=== PATIENT | female | born 1965 | race Caucasian/White ===

== ENCOUNTER → 2017-05-11 | Outpatient (CLI) | payer OTHER ==
--- NOTE | 2017-05-14 16:54 | Diagnostic Imaging Report ---
EXAM: Screening mammogram. COMPARISON: 10/17/2010. FINDINGS: Digital screening mammography was obtained with CAD and 3-dimensional tomosynthesis. FINDINGS: Scattered fibroglandular densities are present. There is no mass or suspicious calcification. IMPRESSION: Stable screening mammogram. No malignancy. BI-RADS category 1. ACR BI-RADS Category 1: Negative. Result letter will be mailed to the patient. Note: At least 10% of breast cancer is not imaged by mammography. Dictated by: Dictated on workstation # [id number]
== END ==
LOC: RAD 09:47
PROVIDERS: ATTEND Nurse Practitioner Family
DX: Z12.31 Encounter for screening mammogram for malignant neoplasm of breast (principal)
CPT/HCPCS: 77067

== ENCOUNTER 2018-08-20 05:33 | Outpatient (CLI) | payer MEDICAID ==
[~2018-08-20] VITALS: Ht 165.1 cm; Wt 62.1 kg
== END 2018-08-20 11:33 | disposition home or self-care (01) ==
LOC: PREOP 05:33
PROVIDERS: ATTEND Specialist
DX: Z01.818 Encounter for other preprocedural examination (principal)

== ENCOUNTER 2018-08-21 06:24 | Day surgery (SDC) | payer MEDICAID ==
[~2018-08-21] VITALS: Ht 165.1 cm; Wt 62.1 kg
--- OUTSIDE RECORDS SUMMARY | 2018-08-21 06:28 | XMS REPORT ---
Author Author BOB ALTMAN Organization [facility] Address [address] [place] [address] Care Team Providers Care Glass Belt Sander Name Role Phone BOB ALTMAN Unavailable PROBLEMS Type Condition ICD9-CM Code TPR73-GN Code Onset Dates Condition Status SNOMED Code Problem AVEL (obstructive sleep apnea) G47.33 Active 46758410 Problem COPD mixed type J44.9 Active 01502574 Problem Simple chronic bronchitis J41.0 Active 71905396 Problem COPD exacerbation J44.1 Active 219934080 Problem Hypoxia R09.02 Active 903502191 Problem Grief reaction F43.20 Active 68526099 ALLERGIES No Information ENCOUNTERS Encounter Location Date Diagnosis [facility] [address] [id number][place] [id number] Jul, [facility] [id number] [place] [address] [id number] May, [facility] [id number], [place] [id number] 24 May, 2018 [facility] [id number], [place] [id number] 14 May, 2018 COPD mixed type J44.9 [facility] [id number], [place] [id number] May, [facility] [address] [facility] [id number][place] [id number] Apr, [facility] [address] [id number], [place] [id number] Mar, Dental caries K02.9 [facility] [place] [address] [facility] [id number], [place] [address] Mar, [facility] [address] [id number], [place] [phone] Mar, Dental examination Z01.20 [facility] [place] [address]00565100[place], [place] [address] Feb, [facility] [place] [id number] [place] [address] [id number] January, COPD mixed type J44.9 [facility] [place] [id number] [place] [address] [id number] January, [facility] [place] [id number] [place] [address] [id number] January, [facility] [place] [address] [place] [address] January, [facility] [place] [id number] [place] [address] [id number] Dec, [facility] [place] [id number] [place] [address] [id number] Dec, [facility] [place] [id number] [place] [address] [id number] Dec, Abdominal mass, LLQ (left lower quadrant) R19.04 [facility] [place] [id number] [place] [address] [id number] Nov, Left lower quadrant pain R10.32 ; Abdominal mass, LLQ (left lower quadrant ) R19.04 ; Weight loss R63.4 ; COPD mixed type J44.9 and Hypoxia R09.02 [facility] [place] [id number] [place] [address] [id number] Nov, [facility] [place] [id number] [place] [address] [id number] Nov, COPD exacerbation J44.1 and Hypoxia R09.02 [facility] [place] [address] [place] [address] [id number] Nov, Hyponatremia E87.1 and COPD mixed type J44.9 [facility] [place] [id number] [place] [address] [id number] Nov, COPD mixed type J44.9 [facility] [place] [id number] [place] [address] [id number] Nov, AVEL (obstructive sleep apnea) G47.33 and Hypoxia R09.02 [facility] [place] [id number], [place] [phone] Nov, [facility] [place] [id number], [place] [phone] Oct, [facility] [place] [id number], [place] [phone] Oct, COPD mixed type J44.9 ; Hypoxia R09.02 and AVEL (obstructive sleep apnea) G47.33 [facility] [place] [address] [facility] [id number][place] [phone] Oct, [facility] [place] [address] [place] [address] [phone] Aug, [facility] [place] [id number] [place] [address] [id number] Aug, [facility] [place] [id number] [place] [address] [phone] Aug, COPD mixed type J44.9 ; Hypoxia R09.02 ; Edema of lower extremity R60.0 ; Hyponatremia E87.1 and Tobacco abuse counseling Z71.6 [facility] [place] [id number] [place] [address] [phone] Aug, COPD exacerbation J44.1 [facility] [place] [id number] [place] [address] [id number] Aug, [facility] [place] [id number] [place] [address] [phone] Aug, [facility] [place] [id number], [place] [phone] Aug, [facility] [place] [address] [id number], [place] [phone] Aug, COPD mixed type J44.9 and Hypoxia R09.02 [facility] [place] [address] [place], [place] [address] [id number] [place] [address] Jul [facility] [place] [id number], [place] [id number] Jul, COPD exacerbation J44.1 and Hypoxia R09.02 [facility] [place] [address] [facility] [id number], [place] [id number] Jul, COPD exacerbation J44.1 and Homeless Z59.0 [facility] [id number] [place] [address] [id number] Jul, COPD exacerbation J44.1 ; Hypoxia R09.02 ; Community acquired pneumonia, unspecified laterality J18.9 ; Tobacco abuse Z72.0 and Tobacco abuse counseling Z71.6 [facility] [id number] [place] [address] [phone] Jun, [facility] [id number] [place] [address] [phone] Jun, Simple chronic bronchitis J41.0 [facility] [id number] [place] [address] [id number] May, [place] [address] [place] [address] [id number] May, [facility] [id number] [place] [address] [phone] May, Simple chronic bronchitis J41.0 [facility] [id number] [place] [address] [id number] Apr, Grief reaction F43.20 and Simple chronic bronchitis J41.0 [facility] [id number] [place] [address] [id number] Apr, [facility] [id number] [place] [address] [id number] Mar, COPD exacerbation J44.1 and Simple chronic bronchitis J41.0 [facility] [id number] [place] [address] [id number] Mar, Well woman exam with routine gynecological exam Z01.419 ; Screening breast examination Z12.31 ; Simple chronic bronchitis J41.0 ; Encounter for vaccination Z23 and Encounter for immunization Z23 [facility] [id number] [place] [address] [id number] Mar, Simple chronic bronchitis J41.0 ; Grief reaction F43.20 and COPD exacerbation J44.1 [facility] [address] [id number], [place] [phone] Feb, COPD exacerbation J44.1 [facility] [address] [facility] [id number], [place] [phone] Feb, [facility] [address] [id number], [place] [phone] Feb, Simple chronic bronchitis J41.0 [facility] [address] [id number], [place] [phone] January, Simple chronic bronchitis J41.0 ; Grief reaction F43.20 and COPD exacerbation J44.1 [facility] 120 [facility] [id number], [place] [phone] January, IMMUNIZATIONS No Known Immunizations SOCIAL HISTORY Never Assessed REASON FOR VISIT med refill PLAN OF CARE VITAL SIGNS MEDICATIONS Medication Instructions Dosage Frequency Start Date End Date Duration Status Singulair 10 mg Orally Once a day 1 tablet in the evening 24h Mar, 0 days Active RESULTS No Results PROCEDURES No Known procedures INSTRUCTIONS MEDICATIONS ADMINISTERED No Known Medications MEDICAL (GENERAL) HISTORY Type Description Date Medical History chronic obstructive pulmonary disease (COPD) Medical History chronic bronchitis Medical History 09/05/17 in home sleep study:Obstructive sleep apnea-moderate and nocturnal hypoxemia. Surgical History Blood vessel removal from head 1982 Surgical History tubal ligation Hospitalization History bronchitis
--- OUTSIDE RECORDS SUMMARY | 2018-08-21 06:28 | XMS REPORT ---
Author Author LUIS ENRIQUE HOOD [facility] Address [address] [place] [address] Care Team Providers Care Clipper Counters Name Role Phone ERWIN LUIS ENRIQUE Unavailable PROBLEMS Type Condition ICD9-CM Code FVQ84-DS Code Onset Dates Condition Status SNOMED Code Problem AVEL (obstructive sleep apnea) G47.33 Active 37057057 Problem COPD mixed type J44.9 Active 99674033 Problem Simple chronic bronchitis J41.0 Active 66608799 Problem COPD exacerbation J44.1 Active 466950243 Problem Hypoxia R09.02 Active 440045677 Problem Grief reaction F43.20 Active 50336772 ALLERGIES No Information ENCOUNTERS Encounter Location Date Diagnosis [facility] [address] [id number][place] [phone] Jul, [facility] [id number] [place] [address] [id number] May, [facility] [id number] [place] [address] [id number] 24 May, 2018 [facility] [id number] [place] [address] [id number] 14 May, 2018 COPD mixed type J44.9 [facility] [id number] [place] [address] [id number] May, [facility] [address] [id number] [phone] Apr, [facility] [address] [id number], [place] [phone] Mar, Dental caries K02.9 [facility] [address] [facility] [id number], [place] [address] Mar, [facility] [address] [id number], [place] [phone] Mar, Dental examination Z01.20 [facility] [address]00565100[place], [place] [address] Feb, [facility] [id number] [place] [address] [id number] January, COPD mixed type J44.9 [facility] [id number] [place] [address] [id number] January, [facility] [id number] [place] [address] [id number] January, [facility] [place] [address] [place] [id number] January, [facility] [id number] [place] [address] [phone] Dec, [facility] [id number] [place] [address] [id number] Dec, [facility] [id number] [place] [address] [phone] Dec, Abdominal mass, LLQ (left lower quadrant) R19.04 [facility] [id number] [place] [address] [phone] Nov, Left lower quadrant pain R10.32 ; Abdominal mass, LLQ (left lower quadrant ) R19.04 ; Weight loss R63.4 ; COPD mixed type J44.9 and Hypoxia R09.02 [facility] [id number] [place] [address] [id number] Nov, [facility] [id number] [place] [address] [id number] Nov, COPD exacerbation J44.1 and Hypoxia R09.02 [facility] [id number] [place] [address] [id number] Nov, Hyponatremia E87.1 and COPD mixed type J44.9 [facility] [id number] [place] [address] [id number] Nov, COPD mixed type J44.9 [facility] [id number] [place] [address] [id number] Nov, AVEL (obstructive sleep apnea) G47.33 and Hypoxia R09.02 [facility] [address] [id number] [place]ACH[place] [phone] Nov, [facility] [address] [id number] [place]ACH[place] [phone] Oct, [facility] [address] [id number] [place]ACH[place] [phone] Oct, COPD mixed type J44.9 ; Hypoxia R09.02 and AVEL (obstructive sleep apnea) G47.[address] [facility] [address] [id number], [place] [id number] Oct, [facility] [address] [id number] BEACH[place] [phone] Aug, [facility] [id number] [place] [address] [id number] Aug, [facility] [id number] [place] [address] [id number] Aug, COPD mixed type J44.9 ; Hypoxia R09.02 ; Edema of lower extremity R60.0 ; Hyponatremia E87.1 and Tobacco abuse counseling Z71.6 [facility] [address] [id number] BEACH[place] [phone] Aug, COPD exacerbation J44.1 [facility] [address] [id number] BEACH, [place] [phone] Aug, [facility] [address] [id number] [place]ACH[place] [id number] Aug, [facility] [address] [id number] [place]ACH[place] [id number] Aug, [facility] [id number] [place]ACH, [place] [id number] Aug, COPD mixed type J44.9 and Hypoxia R09.02 [facility] [address] [place], [place] [address] [id number] [place] [address] Jul [facility] [address] [id number] [place]ACH[place] [id number] Jul, COPD exacerbation J44.1 and Hypoxia R09.[address] [facility] [address] [id number], [place] [id number] Jul, COPD exacerbation J44.1 and Homeless Z59.0 [place] [id number] [place] [address] [id number] Jul, COPD exacerbation J44.1 ; Hypoxia R09.02 ; Community acquired pneumonia, unspecified laterality J18.9 ; Tobacco abuse Z72.0 and Tobacco abuse counseling Z71.6 [facility] [id number] [place] [address] [phone] Jun, [place] [id number] [place] [address] [phone] Jun, Simple chronic bronchitis J41.0 [place] [address] [place] [address] [id number] May, [place] [address] [place] [address] [id number] May, [place] [address] [place] [address] [id number] May, Simple chronic bronchitis J41.0 [place] [address] [place] [address] [id number] Apr, Grief reaction F43.20 and Simple chronic bronchitis J41.0 [address] [place] [address] [id number] Apr, [place] [address] [place] [address] [id number] Mar, COPD exacerbation J44.1 and Simple chronic bronchitis J41.0 [place] [address] [place] [address] [id number] Mar, Well woman exam with routine gynecological exam Z01.419 ; Screening breast examination Z12.31 ; Simple chronic bronchitis J41.0 ; Encounter for vaccination Z23 and Encounter for immunization Z23 [place] [address] [place] [address] [id number] Mar, Simple chronic bronchitis J41.0 ; Grief reaction F43.20 and COPD exacerbation J44.1 [place] [address] [place] [address] [id number] Feb, COPD exacerbation J44.1 [facility] [address] [facility] [id number] [place] [phone] Feb, [facility] 120 [facility] [id number] [place] [phone] Feb, Simple chronic bronchitis J41.0 [facility] [address] [id number] [place]ACH[place] [id number] January, Simple chronic bronchitis J41.0 ; Grief reaction F43.20 and COPD exacerbation J44.[address] [id number] [place]ACH[place] [phone] January, IMMUNIZATIONS No Known Immunizations SOCIAL HISTORY Never Assessed REASON FOR VISIT Medication question PLAN OF CARE VITAL SIGNS MEDICATIONS Unknown Medications RESULTS No Results PROCEDURES No Known procedures [...]
--- OUTSIDE RECORDS SUMMARY | 2018-08-21 06:28 | XMS REPORT ---
Author Author REKHA SOTO [facility] Address [address] [place] [address] Care Team Providers Care English Division Chair Name Role Phone REKHA SOTO Unavailable PROBLEMS Type Condition ICD9-CM Code SUS66-DS Code Onset Dates Condition Status SNOMED Code Problem AVEL (obstructive sleep apnea) G47.33 Active 40950327 Problem COPD mixed type J44.9 Active 06119759 Problem Simple chronic bronchitis J41.0 Active 41442962 Problem COPD exacerbation J44.1 Active 527723379 Problem Hypoxia R09.02 Active 483230190 Problem Grief reaction F43.20 Active 75305283 ALLERGIES No Information ENCOUNTERS Encounter Location Date Diagnosis [facility] [address] [id number] [place] [id number] Jul, [facility] [id number] [place] [address] [phone] May, [facility] [id number] [place] [address] [id number] 24 May, 2018 [facility] [id number] [place] [address] [id number] 14 May, 2018 COPD mixed type J44.9 [facility] [id number] [place] [address] [id number] May, [facility] [address] [address] Apr, [facility] [address] [id number] [place] [id number] Mar, Dental caries K02.9 [facility] [address] [id number] [place] [address] Mar, [facility] [address] [id number] [place] [phone] Mar, Dental examination Z01.20 [facility] [address] [address] Feb, [facility] [id number] [place] [address] [id number] January, COPD mixed type J44.9 [facility] [id number] [place] [address] [id number] January, [facility] [id number] [place] [address] [id number] January, [facility] [address] [place] [address] 2546 January, [facility] [id number] [place] [address] [id number] Dec, [facility] [id number] [place] [address] [id number] Dec, [facility] [id number] [place] [address] [id number] Dec, Abdominal mass, LLQ (left lower quadrant) R19.04 [facility] [id number] [place] [address] [id number] Nov, Left lower quadrant pain R10.32 ; Abdominal mass, LLQ (left lower quadrant ) R19.04 ; Weight loss R63.4 ; COPD mixed type J44.9 and Hypoxia R09.02 [facility] [id number] [place] [address] [id number] Nov, [facility] [id number] [place] [address] [id number] Nov, COPD exacerbation J44.1 and Hypoxia R09.02 [facility] [id number] [place] [address] [id number] Nov, Hyponatremia E87.1 and COPD mixed type J44.9 [facility] [id number] [place] [address] [id number] Nov, COPD mixed type J44.9 [facility] [id number] [place] [address] [id number] Nov, AVEL (obstructive sleep apnea) G47.33 and Hypoxia R09.02 [facility] [address] [id number], [place] [id number] Nov, [facility] [address] [id number], [place] [id number] Oct, [facility] [address] [id number], [place] [phone] Oct, COPD mixed type J44.9 ; Hypoxia R09.02 and AVEL (obstructive sleep apnea) G47.[address] [facility] [address] [address] [id number] [place] [phone] Oct, [facility] [address] [id number], [place] [id number] Aug, [facility] [address] [id number] [place] [address] [id number] Aug, [facility] [id number] [place] [address] [id number] Aug, COPD mixed type J44.9 ; Hypoxia R09.02 ; Edema of lower extremity R60.0 ; Hyponatremia E87.1 and Tobacco abuse counseling Z71.6 [facility] [address] [id number], [place] [id number] Aug, COPD exacerbation J44.1 [facility] [address] [id number], [place] [id number] Aug, [facility] [address] [id number], [place] [id number] Aug, [facility] [address] [id number], [place] [phone] Aug, [facility] [id number], [place] [id number] Aug, COPD mixed type J44.9 and Hypoxia R09.02 [facility] [address] [place], [place] [address] [id number] [place] [address] Jul [facility] [address] [id number], [place] [id number] Jul, COPD exacerbation J44.1 and Hypoxia R09.[address] [facility] [address] [id number] [place] [id number] Jul, COPD exacerbation J44.1 and Homeless Z59.0 [place] [id number] [place] [address] [id number] Jul, COPD exacerbation J44.1 ; Hypoxia R09.02 ; Community acquired pneumonia, unspecified laterality J18.9 ; Tobacco abuse Z72.0 and Tobacco abuse counseling Z71.6 [facility] [id number] [place] [address] [id number] Jun, [place] [address] [place] [address] [id number] Jun, Simple chronic bronchitis J41.0 [place] [address] [place] [address] [id number] May, [place] [address] [place] [address] [id number] May, [place] [address] [place] [address] [id number] May, Simple chronic bronchitis J41.0 [place] [address] [place] [address] [id number] Apr, Grief reaction F43.20 and Simple chronic bronchitis J41.0 [address] [place] [address] [id number] Apr, [place] [address] [place] [address] [id number] Mar, COPD exacerbation J44.1 and Simple chronic bronchitis J41.0 [place] [address] [place] [address] [id number] Mar, Well woman exam with routine gynecological exam Z01.419 ; Screening breast examination Z12.31 ; Simple chronic bronchitis J41.0 ; Encounter for vaccination Z23 and Encounter for immunization Z23 [place] [id number] [place] [address] [id number] Mar, Simple chronic bronchitis J41.0 ; Grief reaction F43.20 and COPD exacerbation J44.1 [place] [id number] [place] [address] [id number] Feb, COPD exacerbation J44.1 [facility] [address] [facility] [id number] [place] [id number] Feb, [facility] 120 [facility] [id number][place] [phone] Feb, Simple chronic bronchitis J41.0 [place] [id number] [phone] January, Simple chronic bronchitis J41.0 ; Grief reaction F43.20 and COPD exacerbation J44.[address] [id number], [place] [id number] January, IMMUNIZATIONS No Known Immunizations SOCIAL HISTORY Never Assessed REASON FOR VISIT Requests return call PLAN OF CARE VITAL SIGNS MEDICATIONS Unknown [...]
--- OUTSIDE RECORDS SUMMARY | 2018-08-21 06:28 | XMS REPORT ---
Author Author BOB ALTMAN Organization [facility] Address [address] [place] [address] Care Team Providers Care Cable Hooker Name Role Phone BOB ALTMAN Unavailable PROBLEMS Type Condition ICD9-CM Code AAU23-NT Code Onset Dates Condition Status SNOMED Code Problem AVEL (obstructive sleep apnea) G47.33 Active 07063769 Problem COPD mixed type J44.9 Active 86016607 Problem Simple chronic bronchitis J41.0 Active 58090233 Problem COPD exacerbation J44.1 Active 230252675 Problem Hypoxia R09.02 Active 910950972 Problem Grief reaction F43.20 Active 76614435 ALLERGIES No Information ENCOUNTERS Encounter Location Date Diagnosis [facility] [address] [id number], [place] [id number] Jul, [facility] [id number] [place] [address] [id number] Jun, [facility] [id number] [place] [address] [id number] May, [facility] [id number] [place] [address] [id number] May, [facility] [id number] [place] [address] [id number] 14 May, 2018 COPD mixed type J44.9 [facility] [id number] [place] [address] [id number] May, [facility] [id number] [place] [address]- 1515 Apr, [facility] [address] [id number], [place] [id number] Mar, Dental caries K02.9 [facility] [id number] [place] [address] 56378 2547 Mar, [facility] Reji0 [facility] [id number][place] [id number] Mar, Dental examination Z01.20 [facility] [address] [id number] [address] Feb, [facility] [id number], [place] [id number] January, COPD mixed type J44.9 [facility] [id number], [place] [id number] January, [facility] [id number], [place] [id number] January, [facility] [address] [facility] [id number][place] [address]- [address] January, [facility] [id number], [place] [id number] Dec, [facility] [id number], [place] [id number] Dec, [facility] [id number], [place] [id number] Dec, Abdominal mass, LLQ (left lower quadrant) R19.04 [facility] [id number], [place] [id number] Nov, Left lower quadrant pain R10.32 ; Abdominal mass, LLQ (left lower quadrant ) R19.04 ; Weight loss R63.4 ; COPD mixed type J44.9 and Hypoxia R09.02 [facility] [id number], [place] [id number] Nov, [facility] [id number], [place] [id number] Nov, COPD exacerbation J44.1 and Hypoxia R09.02 [facility] [id number] [place] [address] [id number] Nov, Hyponatremia E87.1 and COPD mixed type J44.9 [facility] [address] [place] [address] [id number] Nov, COPD mixed type J44.9 [facility] [id number], [place] [id number] Nov, AVEL (obstructive sleep apnea) G47.33 and Hypoxia R09.02 [facility] [id number], [place] [id number] Nov, [facility] [address]00565100[place], [place] [id number] Oct, [facility] [id number] [place] [address] [id number] Oct, COPD mixed type J44.9 ; Hypoxia R09.02 and AVEL (obstructive sleep apnea) G47.33 [facility] [address]00565100[place] [id number] Oct, [facility] [address]00565100[place], [place] [id number] Aug, [facility] [address] [place] [address] [id number] Aug, [facility] [address] [place] [address] [id number] Aug, COPD mixed type J44.9 ; Hypoxia R09.02 ; Edema of lower extremity R60.0 ; Hyponatremia E87.1 and Tobacco abuse counseling Z71.6 [facility] [address]00565100[place], [place] [id number] Aug, COPD exacerbation J44.1 [facility] [address]00565100[place], [place] [id number] Aug, [facility] [address]00565100[place], [place] [id number] Aug, [facility] [address]00565100[place], [place] [id number] Aug, [facility] [address]00565100[place], [place] [id number] Aug, COPD mixed type J44.9 and Hypoxia R09.02 [facility] [address] [place] [address] [id number] [address] Jul [facility] [address] [place] [address] [id number] 14 Jul, 2017 COPD exacerbation J44.1 and Hypoxia R09.02 [facility] AVSt[facility] [id number], [place] 120900470 Jul, COPD exacerbation J44.1 and Homeless Z59.0 [facility] [id number] [place] [address] [id number] Jul, COPD exacerbation J44.1 ; Hypoxia R09.02 ; Community acquired pneumonia, unspecified laterality J18.9 ; Tobacco abuse Z72.0 and Tobacco abuse counseling Z71.6 [facility] [id number] [place] [address] [id number] Jun, Simple chronic bronchitis J41.0 [facility] [id number] [place] [address] [id number] Jun, [place] [id number] [place] [address] [id number] May, [facility] [id number] [place] [address] [id number] May, [facility] [id number] [place] [address] [id number] May, Simple chronic bronchitis J41.0 [place] [id number] [place] [address] [id number] Apr, Grief reaction F43.20 and Simple chronic bronchitis J41.0 [facility] [id number] [place] [address] [id number] Apr, [facility] [id number] [place] [address] [id number] Mar, COPD exacerbation J44.1 and Simple chronic bronchitis J41.0 [facility] [id number] [place] [address] [id number] Mar, Well woman exam with routine gynecological exam Z01.419 ; Screening breast examination Z12.31 ; Simple chronic bronchitis J41.0 ; Encounter for vaccination Z23 and Encounter for immunization Z23 [facility] [id number] [place] [address] [id number] Mar, Simple chronic bronchitis J41.0 ; Grief reaction F43.20 and COPD exacerbation J44.1 [facility] [address] [facility] [id number], [place] [id number] Feb, COPD exacerbation J44.1 [facility] [id number], [place] [id number] Feb, [address]00565100[place], [place] [id number] Feb, Simple chronic bronchitis J41.0 [address]00565100[place], [place] [id number] January, Simple chronic bronchitis J41.0 ; Grief reaction F43.20 and COPD exacerbation J44.1 [address]00565100[place], [place] [id number] January, IMMUNIZATIONS No Known Immunizations SOCIAL HISTORY Never Assessed REASON FOR VISIT PALS PLAN OF CARE VITAL SIGNS MEDICATIONS Unknown [...]
--- OUTSIDE RECORDS SUMMARY | 2018-08-21 06:28 | XMS REPORT ---
Author Author ISI DEVRIES [facility] Address [address] [place] [address] Care Team Providers Care Business Planning Analyst Name Role Phone ASA DEVRIESARDO Unavailable PROBLEMS Type Condition ICD9-CM Code SHI15-JV Code Onset Dates Condition Status SNOMED Code Problem AVEL (obstructive sleep apnea) G47.33 Active 17618596 Problem COPD mixed type J44.9 Active 95369803 Problem Simple chronic bronchitis J41.0 Active 22218518 Problem COPD exacerbation J44.1 Active 617250834 Problem Hypoxia R09.02 Active 993738905 Problem Grief reaction F43.20 Active 85700216 ALLERGIES No Known Allergies ENCOUNTERS Encounter Location Date Diagnosis [facility] [address] [facility] [id number] [id number] Jul, [facility] [address] [id number], [place] [id number] 18 May, 2018 [facility] [id number], [place] [id number] 14 May, 2018 COPD mixed type J44.9 [facility] [address] [id number], [place] [id number] May, [facility] [address] [id number] [address]5919[address] Apr, [facility] [address] [facility] [id number], [place] [id number] Mar, Dental caries K02.9 [facility] [address]00565100[place], [place] [address]4543033[address] Mar, [facility] [address] [facility] [id number], [place] [id number] Mar, Dental examination Z01.20 [facility] [address]00565100[place], [place] [address]- [address] Feb, [facility] [id number], [place] [id number] January, COPD mixed type J44.9 [facility] [id number] [place] [address] [id number] January, [facility] [id number] [place] [address] [id number] January, [facility] [address] [place] [address] 86[address]- 2546 January, [facility] [id number] [place] [address] [id number] Dec, [facility] [id number] [place] [address] [id number] Dec, [facility] [id number] [place] [address] [id number] Dec, Abdominal mass, LLQ (left lower quadrant) R19.04 [facility] [id number] [place] [address] [id number] Nov, Left lower quadrant pain R10.32 ; Abdominal mass, LLQ (left lower quadrant ) R19.04 ; Weight loss R63.4 ; COPD mixed type J44.9 and Hypoxia R09.02 [facility] [id number], [place] [id number] Nov, [facility] [id number] [place] [address] [id number] Nov, COPD exacerbation J44.1 and Hypoxia R09.02 [facility] [id number] [place] [address] [id number] Nov, Hyponatremia E87.1 and COPD mixed type J44.9 [facility] [id number] [place] [address] [id number] Nov, COPD mixed type J44.9 [facility] [id number] [place] [address] [id number] Nov, AVEL (obstructive sleep apnea) G47.33 and Hypoxia R09.02 [facility] [address] [id number], [place] [id number] Nov, [facility] [id number], [place] [id number] Oct, [facility] [address]00565100[place], [place] [id number] Oct, COPD mixed type J44.9 ; Hypoxia R09.02 and AVEL (obstructive sleep apnea) G47.33 [facility] [address] [id number], [place] [id number] Oct, [facility] [address] [id number], [place] [id number] Aug, [facility] [address] [place] [address] [id number] Aug, [facility] [address] [place] [address] [id number] Aug, COPD mixed type J44.9 ; Hypoxia R09.02 ; Edema of lower extremity R60.0 ; Hyponatremia E87.1 and Tobacco abuse counseling Z71.6 [facility] [id number], [place] [id number] Aug, COPD exacerbation J44.1 [facility] [id number] [place] [address] [id number] Aug, [facility] [place] [id number], [place] [id number] Aug, [facility] [address] [place] [address] [id number] Aug, [facility] [address] [place] [address] [id number] Aug, COPD mixed type J44.9 and Hypoxia R09.02 [facility] [address] [place] [address] [id number] [place] [address] Jul [facility] [id number], [place] [id number] Jul, COPD exacerbation J44.1 and Hypoxia R09.02 [facility] [address] [id number], [place] [id number] Jul, COPD exacerbation J44.1 and Homeless Z59.0 [facility] [id number] [place] [address] [id number] Jul, COPD exacerbation J44.1 ; Hypoxia R09.02 ; Community acquired pneumonia, unspecified laterality J18.9 ; Tobacco abuse Z72.0 and Tobacco abuse counseling Z71.6 [facility] [address] [id number] Jun, [facility] [address] [id number] Jun, Simple chronic bronchitis J41.0 [facility] [id number] [place] [address] [id number] May, [facility] [address] [id number] May, [place] [id number] [place] [address] [id number] May, Simple chronic bronchitis J41.0 [facility] [address] [id number] Apr, Grief reaction F43.20 and Simple chronic bronchitis J41.0 [facility] [id number] [place] [address] [id number] Apr, [facility] [address] [id number] Mar, COPD exacerbation J44.1 and Simple chronic bronchitis J41.0 [place] [id number] [place] [address] [id number] Mar, Well woman exam with routine gynecological exam Z01.419 ; Screening breast examination Z12.31 ; Simple chronic bronchitis J41.0 ; Encounter for vaccination Z23 and Encounter for immunization Z23 [place] [id number] [place] [address] [id number] Mar, Simple chronic bronchitis J41.0 ; Grief reaction F43.20 and COPD exacerbation J44.1 [facility] [id number] [place] [address] [id number] Feb, COPD exacerbation J44.1 [facility] [address] [place] [id number] Feb, [facility] [address] [facility] [id number] [id number] Feb, Simple chronic bronchitis J41.0 [facility] [address] [id number] [id number] January, Simple chronic bronchitis J41.0 ; Grief reaction F43.20 and COPD exacerbation J44.1 [facility] 120 [facility] [id number] [id number] January, IMMUNIZATIONS No Known Immunizations SOCIAL HISTORY Never Assessed REASON FOR VISIT te PLAN OF CARE Activity Details Follow Up prn Reason:[facility] [employer] Height 65 in 2018-04-23 Blood pressure systolic 146 mmHg 2018-04-23 Blood pressure diastolic 79 mmHg 2018-04-23 MEDICATIONS Medication Instructions Dosage Frequency Start Date End Date Duration Status Furosemide 20 mg Orally Once a day 1/2 tablet 24h 0 days Active Albuterol Sulfate (2.5 MG/3ML) 0.083% Inhalation Three times a day 3 ml 8h Active Singulair 10 mg Orally Once a day 1 tablet in the evening 24h Mar, 0 days Active Spiriva HandiHaler 18 MCG Inhalation Once a day 1 capsule 24h Active ProAir HFA 108 (90 Base) MCG/ACT Inhalation every 4 hrs 2 puffs as needed 4h Active Symbicort 160-4.5 MCG/ACT Inhalation Twice a day 2 puffs 12h Feb, Active RESULTS No Results PROCEDURES Procedure Date Ordered Result Body Site EXTRAC ERUPTED TOOTH/EXPOSED ROOT April 23, 2018 INSTRUCTIONS MEDICATIONS ADMINISTERED No Known Medications MEDICAL (GENERAL) HISTORY Type Description Date Medical History chronic obstructive pulmonary disease (COPD) Medical History chronic bronchitis Medical History 09/05/17 in home sleep study:Obstructive sleep apnea-moderate and nocturnal hypoxemia. Surgical History Blood vessel removal from head 1982 Surgical History tubal ligation Hospitalization History bronchitis
--- OUTSIDE RECORDS SUMMARY | 2018-08-21 06:28 | XMS REPORT ---
Author Author ISI DEVRIES [facility] Address [address] [place] [address] Care Team Providers Care Guard Lieutenant Name Role Phone ASA DEVRIESARDO Unavailable PROBLEMS Type Condition ICD9-CM Code VMR72-TI Code Onset Dates Condition Status SNOMED Code Problem AVEL (obstructive sleep apnea) G47.33 Active 47241765 Problem COPD mixed type J44.9 Active 97511654 Problem Simple chronic bronchitis J41.0 Active 27383887 Problem COPD exacerbation J44.1 Active 546009002 Problem Hypoxia R09.02 Active 145211749 Problem Grief reaction F43.20 Active 12561034 ALLERGIES No Known Allergies ENCOUNTERS Encounter Location Date Diagnosis [facility] [address] [facility] [id number], [place] [id number] Jul, [facility] [address] [id number], [place] [address] Apr, [address] [id number], [place] [phone] Mar, Dental caries K02.9 [facility] [address] [id number], [place] [address] Mar, [address] [id number], [place] [phone] Mar, Dental examination Z01.20 [facility] [address] [facility] [id number], [place] [address]335[address] Feb, [facility] [address] [id number], [place] [id number] January, COPD mixed type J44.9 [facility] [address] [id number], [place] [phone] January, [facility] [address] [id number], [place] [id number] January, [facility] [address]00565[address], [place] [address] January, [facility] [id number] [place] [address] [id number] Dec, [facility] [id number] [place] [address] [id number] Dec, [facility] [id number] [place] [address] [id number] Dec, Abdominal mass, LLQ (left lower quadrant) R19.04 [facility] [id number] [place] [address] [id number] Nov, Left lower quadrant pain R10.32 ; Abdominal mass, LLQ (left lower quadrant ) R19.04 ; Weight loss R63.4 ; COPD mixed type J44.9 and Hypoxia R09.02 [facility] [id number] [place] [address] [id number] Nov, [facility] [id number] [place] [address] [id number] Nov, COPD exacerbation J44.1 and Hypoxia R09.02 [facility] [id number] [place] [address] [id number] Nov, Hyponatremia E87.1 and COPD mixed type J44.9 [address] [place] [address] [id number] Nov, COPD mixed type J44.9 [facility] [id number] [place] [address] [id number] Nov, AVEL (obstructive sleep apnea) G47.33 and Hypoxia R09.02 [facility] [address] [place] [address] [id number] Nov, [facility] [id number] [place] [address] [id number] Oct, [facility] [id number] [place] [address] [id number] Oct, COPD mixed type J44.9 ; Hypoxia R09.02 and AVEL (obstructive sleep apnea) G47.33 [facility] [address] [facility] [address] [id number], [place] [phone] Oct, [facility] [address] [id number], [place] [phone] Aug, [facility] [id number] [place] [address] [id number] Aug, [facility] [address] [id number] [place] [address] [id number] Aug, COPD mixed type J44.9 ; Hypoxia R09.02 ; Edema of lower extremity R60.0 ; Hyponatremia E87.1 and Tobacco abuse counseling Z71.6 [facility] [address] [place] [address] [id number] Aug, COPD exacerbation J44.1 [facility] [address] [id number] [place] [address] [id number] Aug, [facility] [place] [id number] [place] [address] [id number] Aug, [facility] [place] [id number] [place] [address] [id number] Aug, [facility] [id number] [place] [address] [id number] Aug, COPD mixed type J44.9 and Hypoxia R09.02 [facility] [address] [place] [address] [id number] [place] [address] Jul [facility] [address] [place] [address] [id number] Jul, COPD exacerbation J44.1 and Hypoxia R09.02 [facility] [address] [facility] [address] [id number], [place] [id number] Jul, COPD exacerbation J44.1 and Homeless Z59.0 [facility] [address]00565[address] [id number] Jul, COPD exacerbation J44.1 ; Hypoxia R09.02 ; Community acquired pneumonia, unspecified laterality J18.9 ; Tobacco abuse Z72.0 and Tobacco abuse counseling Z71.6 [facility] [address] [id number], [place] [phone] Jun, [facility] [address] [id number] [place] [phone] Jun, Simple chronic bronchitis J41.0 [facility] [address] [id number], [place] [id number] May, [facility] [address] [id number] [place] [id number] May, [facility] [address] [id number], [place] [id number] May, Simple chronic bronchitis J41.0 [facility] [address] [id number] [place] [phone] Apr, Grief reaction F43.20 and Simple chronic bronchitis J41.0 [facility] [address] [id number], [place] [id number] Apr, [facility] [id number] [place] [address] [id number] Mar, COPD exacerbation J44.1 and Simple chronic bronchitis J41.0 [facility] [address] [id number], [place] [id number] Mar, Well woman exam with routine gynecological exam Z01.419 ; Screening breast examination Z12.31 ; Simple chronic bronchitis J41.0 ; Encounter for vaccination Z23 and Encounter for immunization Z23 [facility] [address] [id number][place] [phone] Mar, Simple chronic bronchitis J41.0 ; Grief reaction F43.20 and COPD exacerbation J44.1 [facility] [address] [id number], [place] [id number] Feb, COPD exacerbation J44.1 [facility] [address] [id number], [place] [phone] Feb, [facility] [address] [id number], [place] [phone] Feb, Simple chronic bronchitis J41.0 [facility] [address] [id number], [place] [phone] January, Simple chronic bronchitis J41.0 ; Grief reaction F43.20 and COPD exacerbation J44.1 [facility] [address] [facility] [id number] [place] [phone] January, IMMUNIZATIONS No Known Immunizations SOCIAL HISTORY Never Assessed REASON FOR VISIT toothache PLAN OF CARE Activity Details Follow Up 1 Week Reason:TE #19 VITAL SIGNS Height 65 in 2018-03-25 Blood pressure systolic 135 mmHg 2018-03-25 Blood pressure diastolic 82 mmHg 2018-03-25 MEDICATIONS Medication Instructions Dosage Frequency Start Date End Date Duration Status Symbicort 160-4.5 MCG/ACT Inhalation Twice a day 2 puffs 12h Feb, Active Amoxicillin 500 MG Orally 2 STAT 1 every 8 hrs 1 capsule Mar, Mar, 10 day(s) Active Albuterol Sulfate (2.5 MG/3ML) 0.083% Inhalation Three times a day 3 ml 8h Active Spiriva HandiHaler 18 MCG Inhalation Once a day 1 capsule 24h Active Singulair 10 mg Orally Once a day 1 tablet in the evening 24h Mar, 0 days Active Furosemide 20 mg Orally Once a day 1/2 tablet 24h 0 days Active ProAir HFA 108 (90 Base) MCG/ACT Inhalation every 4 hrs 2 puffs as needed 4h Active RESULTS No Results PROCEDURES Procedure Date Ordered Result Body Site LTD ORAL EVALUATION - PROBLEM FOCUS March 25, 2018 INTRAORL-PERIAPICAL 1 FILM [id number] March 25, 2018 BITEWING - SINGLE FILM March 25, 2018 INSTRUCTIONS MEDICATIONS ADMINISTERED No Known Medications MEDICAL (GENERAL) HISTORY Type Description Date Medical History chronic obstructive pulmonary disease (COPD) Medical History chronic bronchitis Medical History 09/05/17 in home sleep study:Obstructive sleep apnea-moderate and nocturnal hypoxemia. Surgical History Blood vessel removal from head 1982 Surgical History tubal ligation Hospitalization History bronchitis
--- OUTSIDE RECORDS SUMMARY | 2018-08-21 06:29 | XMS REPORT ---
Author Author BOB ALTMAN Organization [facility] Address [address] [place] [address] Care Team Providers Care Tile Burner Name Role Phone BOB ALTMAN Unavailable PROBLEMS Type Condition ICD9-CM Code FRF94-OJ Code Onset Dates Condition Status SNOMED Code Problem AVEL (obstructive sleep apnea) G47.33 Active 17321374 Problem COPD mixed type J44.9 Active 97091822 Problem Simple chronic bronchitis J41.0 Active 11749051 Problem COPD exacerbation J44.1 Active 873459858 Problem Hypoxia R09.02 Active 287057970 Problem Grief reaction F43.20 Active 65374251 ALLERGIES No Known Allergies ENCOUNTERS Encounter Location Date Diagnosis [facility] [address] [id number][place] [phone] Jul, [facility] [address] [id number] [address] Apr, [facility] [id number], [place] [phone] Mar, Dental caries K02.9 [facility] [address]00565100[place] [address] Mar, [facility] [id number], [place] [phone] Mar, Dental examination Z01.20 [facility] [address]00565100[place], [place] [address]190[address] Feb, [facility] [address] [id number] [place] [phone] January, COPD mixed type J44.9 [facility] [address] [id number] [place] [phone] January, [facility] [id number] [place] [phone] January, [facility] [address] [id number], [place] [address] January, [facility] [id number] [place] [phone] Dec, [facility] [id number] [place] [address] [id number] Dec, [facility] [id number] [place] [address] [id number] Dec, Abdominal mass, LLQ (left lower quadrant) R19.04 [facility] [id number] [place] [address] [id number] Nov, Left lower quadrant pain R10.32 ; Abdominal mass, LLQ (left lower quadrant ) R19.04 ; Weight loss R63.4 ; COPD mixed type J44.9 and Hypoxia R09.02 [facility] [id number] [place] [address] [id number] Nov, [facility] [id number] [place] [address] [id number] Nov, COPD exacerbation J44.1 and Hypoxia R09.02 [facility] [id number] [place] [address] [id number] Nov, Hyponatremia E87.1 and COPD mixed type J44.[address] [place] [address] [phone] Nov, COPD mixed type J44.9 [facility] [address] [place] [address] [id number] Nov, AVEL (obstructive sleep apnea) G47.33 and Hypoxia R09.02 [facility] [address] [place] [address] [id number] Nov, [facility] [id number] [place] [address] [id number] Oct, [facility] [address] [place] [address] [id number] Oct, COPD mixed type J44.9 ; Hypoxia R09.02 and AVEL (obstructive sleep apnea) G47.33 [facility] [address] [facility] [address] [id number], [place] [id number] Oct, [facility] [address] [id number] [place] [phone] Aug, [facility] [id number] [place] [address] [id number] Aug, [facility] [id number] [place] [address] [id number] Aug, COPD mixed type J44.9 ; Hypoxia R09.02 ; Edema of lower extremity R60.0 ; Hyponatremia E87.1 and Tobacco abuse counseling Z71.6 [facility] [id number] [place] [address] [id number] Aug, COPD exacerbation J44.1 [facility] [id number] [place] [address] [id number] Aug, [facility] [id number] [place] [address] [id number] Aug, [facility] [id number] [place] [address] [id number] Aug, [facility] [id number] [place] [address] [id number] Aug, COPD mixed type J44.9 and Hypoxia R09.02 [facility] [address] [id number] [place] [address] Jul [facility] [id number] [place] [address] [id number] Jul, COPD exacerbation J44.1 and Hypoxia R09.02 [facility] [address] [facility] [address] [id number], [place] [phone] Jul, COPD exacerbation J44.1 and Homeless Z59.0 [facility] [id number] [place] [id number] Jul, COPD exacerbation J44.1 ; Hypoxia R09.02 ; Community acquired pneumonia, unspecified laterality J18.9 ; Tobacco abuse Z72.0 and Tobacco abuse counseling Z71.6 [facility] [place] [address] [id number] [place] [phone] Jun, [facility] [address] [id number] [place] [id number] Jun, Simple chronic bronchitis J41.0 [facility] [address] [id number] [place] [phone] May, [facility] [id number] [place] [address] [id number] May, [facility] [id number] [place] [address] [id number] May, Simple chronic bronchitis J41.0 [facility] [address] [id number] [place] [id number] Apr, Grief reaction F43.20 and Simple chronic bronchitis J41.0 [facility] [id number] [place] [address] [id number] Apr, [facility] [address] [id number] [place] [address] [id number] Mar, COPD exacerbation J44.1 and Simple chronic bronchitis J41.0 [facility] [id number] [place] [phone] Mar, Well woman exam with routine gynecological exam Z01.419 ; Screening breast examination Z12.31 ; Simple chronic bronchitis J41.0 ; Encounter for vaccination Z23 and Encounter for immunization Z23 [facility] [address] [id number] [place] [phone] Mar, Simple chronic bronchitis J41.0 ; Grief reaction F43.20 and COPD exacerbation J44.1 [facility] [address] [id number] [place] [phone] Feb, COPD exacerbation J44.1 [facility] [id number] [place] [address] [phone] Feb, [facility] [address] [id number] [place] [phone] Feb, Simple chronic bronchitis J41.0 [facility] [address] [id number] [place] [phone] January, Simple chronic bronchitis J41.0 ; Grief reaction F43.20 and COPD exacerbation J44.1 [facility] [address] [facility] [id number] [place] [phone] January, IMMUNIZATIONS No Known Immunizations SOCIAL HISTORY Never Assessed REASON FOR VISIT Pt concerned about recent weightloss, Also has a knot to the left side of abd Eddie JAJA PLAN OF CARE Activity Details Follow Up pending imaging and prn, CHM COPD in 4 weeks Reason: VITAL SIGNS Height 65 in 2017-12-21 Weight 129.4 lbs 2017-12-21 Temperature 97.1 degrees Fahrenheit 2017-12-21 Heart Rate 104 bpm 2017-12-21 Respiratory Rate 20 2017-12-21 Oximetry 88 % 2017-12-21 BMI 21.53 kg/m2 2017-12-21 Blood pressure systolic 140 mmHg 2017-12-21 Blood pressure diastolic 82 mmHg 2017-12-21 MEDICATIONS Medication Instructions Dosage Frequency Start Date End Date Duration Status ProAir HFA 108 (90 Base) MCG/ACT Inhalation every 4 hrs 2 puffs as needed 4h Active Furosemide 20 mg Orally Once a day 1/2 tablet 24h 0 days Active PredniSONE 10 mg Orally Once a day 4 tablets for 3 days, 3 tabs for 3 days, 2 tabs for 3 days, and 1 tab for 3 days 24h Nov, Dec, 12 days Active Albuterol Sulfate (2.5 MG/3ML) 0.083% Inhalation Three times a day 3 ml 8h Active Symbicort 160-4.5 MCG/ACT Inhalation Twice a day 2 puffs 12h Feb, Active Singulair 10 mg Orally Once a day 1 tablet in the evening 24h Mar, Active Spiriva HandiHaler 18 MCG Inhalation Once a day 1 capsule 24h Active Doxycycline Hyclate 100 mg Orally every 12 hrs 1 capsule 12h Nov, Dec, 14 days Active RESULTS No Results PROCEDURES Procedure Date Ordered Result Body Site ROUTINE VENIPUNCTURE 2017-12-21 N/A MANUAL CELL COUNT, EACH December 21, 2017 COMPREHEN METABOLIC PANEL December 21, 2017 INSTRUCTIONS MEDICATIONS ADMINISTERED No Known Medications MEDICAL (GENERAL) HISTORY Type Description Date Medical History chronic obstructive pulmonary disease (COPD) Medical History chronic bronchitis Medical History 09/05/17 in home sleep study:Obstructive sleep apnea-moderate and nocturnal hypoxemia. Surgical History Blood vessel removal from head 1982 Surgical History tubal ligation Hospitalization History bronchitis
--- OUTSIDE RECORDS SUMMARY | 2018-08-21 06:29 | XMS REPORT ---
Author Author BOB ALTMAN Organization [facility] Address [address] [place] [address] Care Team Providers Care Byproducts Operator Name Role Phone BOB ALTMAN Unavailable PROBLEMS Type Condition ICD9-CM Code IEY94-PK Code Onset Dates Condition Status SNOMED Code Problem AVEL (obstructive sleep apnea) G47.33 Active 06085751 Problem COPD mixed type J44.9 Active 44585129 Problem Simple chronic bronchitis J41.0 Active 87042277 Problem COPD exacerbation J44.1 Active 546018751 Problem Hypoxia R09.02 Active 997914806 Problem Grief reaction F43.20 Active 49856152 ALLERGIES No Information ENCOUNTERS Encounter Location Date Diagnosis [id number] [id number] [id number] Jul, [facility] [id number] [place] [address] [id number] May, [facility] [id number] [place] [address] [id number] 14 May, 2018 COPD mixed type J44.9 [facility] [address] [id number] [phone] May, [facility] [address] [id number] [address] Apr, [facility] [address] [id number], [place] [phone] Mar, Dental caries K02.9 [facility] [address] [id number] [address]396[address] Mar, [facility] [address] [id number], [place] [phone] Mar, Dental examination Z01.20 [facility] [address]00565100[place] [address] Feb, [facility] [id number] [place] [address] [phone] January, COPD mixed type J44.9 [facility] [id number], [place] [phone] January, [facility] [id number] [place] [address] [id number] January, [facility] [address]00565100[place] [address] January, [facility] [id number] [place] [address] [id number] Dec, [facility] [id number] [place] [address] [id number] Dec, [facility] [id number] [place] [address] [id number] Dec, Abdominal mass, LLQ (left lower quadrant) R19.04 [facility] [id number] [place] [address] [id number] Nov, Left lower quadrant pain R10.32 ; Abdominal mass, LLQ (left lower quadrant ) R19.04 ; Weight loss R63.4 ; COPD mixed type J44.9 and Hypoxia R09.02 [facility] [id number] [place] [address] [id number] Nov, [facility] [id number] [place] [address] [phone] Nov, COPD exacerbation J44.1 and Hypoxia R09.02 [facility] [id number] [place] [address] [id number] Nov, Hyponatremia E87.1 and COPD mixed type J44.9 [facility] [id number] [place] [address] [id number] Nov, COPD mixed type J44.9 [facility] [id number] [place] [address] [id number] Nov, AVEL (obstructive sleep apnea) G47.33 and Hypoxia R09.02 [facility] [id number], [place] [phone] Nov, [facility] [id number], [place] [id number] Oct, [facility] [id number], [place] [id number] Oct, COPD mixed type J44.9 ; Hypoxia R09.02 and AVEL (obstructive sleep apnea) G47.[address] [facility] [address] [id number], [place] [phone] Oct, [facility] [id number], [place] [id number] Aug, [facility] [id number] [place] [address] [id number] Aug, [facility] [id number] [place] [address] [id number] Aug, COPD mixed type J44.9 ; Hypoxia R09.02 ; Edema of lower extremity R60.0 ; Hyponatremia E87.1 and Tobacco abuse counseling Z71.6 [facility] [id number] [place] [address] [id number] Aug, COPD exacerbation J44.1 [facility] [id number], [place] [id number] Aug, [facility] [id number] [place] [address] [id number] Aug, [facility] [address]00565100[place], [place] [phone] Aug, [facility] [id number], [place] [id number] Aug, COPD mixed type J44.9 and Hypoxia R09.02 [facility] [address] [place], [place] [address]E [id number] [place] [address] Jul [facility] [id number], [place] [id number] Jul, COPD exacerbation J44.1 and Hypoxia R09.[address] [facility] [address] [id number], [place] [id number] Jul, COPD exacerbation J44.1 and Homeless Z59.0 [facility] [id number] [place] [address] [id number] Jul, COPD exacerbation J44.1 ; Hypoxia R09.02 ; Community acquired pneumonia, unspecified laterality J18.9 ; Tobacco abuse Z72.0 and Tobacco abuse counseling Z71.6 [facility] [id number] [place] [address] [id number] Jun, [facility] [address] [id number] Jun, Simple chronic bronchitis J41.0 [facility] [id number] [place] [address] [id number] May, [facility] [address] [id number] May, [place] [id number] [place] [address] [id number] May, Simple chronic bronchitis J41.0 [facility] [id number] [place] [address] [id number] Apr, Grief reaction F43.20 and Simple chronic bronchitis J41.0 [facility] [id number] [place] [address] [id number] Apr, [facility] [id number] [place] [address] [id number] Mar, COPD exacerbation J44.1 and Simple chronic bronchitis J41.0 [place] [id number] [place] [address] [id number] Mar, Well woman exam with routine gynecological exam Z01.419 ; Screening breast examination Z12.31 ; Simple chronic bronchitis J41.0 ; Encounter for vaccination Z23 and Encounter for immunization Z23 [place] [id number] [place] [address] [id number] Mar, Simple chronic bronchitis J41.0 ; Grief reaction F43.20 and COPD exacerbation J44.1 [facility] [id number] [place] [address] [id number] Feb, COPD exacerbation J44.1 [facility] [address] [id number] [phone] Feb, [facility] [address] [facility] [id number] [phone] Feb, Simple chronic bronchitis J41.0 [facility] [address] [id number], [place] [id number] January, Simple chronic bronchitis J41.0 ; Grief reaction F43.20 and COPD exacerbation J44.[address] [id number], [place] [phone] January, IMMUNIZATIONS No Known Immunizations SOCIAL HISTORY Never Assessed REASON FOR VISIT eye exam PLAN OF CARE VITAL SIGNS MEDICATIONS Unknown [...]
--- OUTSIDE RECORDS SUMMARY | 2018-08-21 06:29 | XMS REPORT ---
Author Author BOB ALTMAN Organization [facility] Address [address] [place] [address] Care Team Providers Care Global Account Executive Name Role Phone BOB ALTMAN Unavailable PROBLEMS Type Condition ICD9-CM Code ODS04-KT Code Onset Dates Condition Status SNOMED Code Problem AVEL (obstructive sleep apnea) G47.33 Active 39591028 Problem COPD mixed type J44.9 Active 32048288 Problem Simple chronic bronchitis J41.0 Active 46588960 Problem COPD exacerbation J44.1 Active 147233116 Problem Hypoxia R09.02 Active 959484546 Problem Grief reaction F43.20 Active 83260855 ALLERGIES No Information ENCOUNTERS Encounter Location Date Diagnosis [facility] [address] [id number], [place] [id number] Jul, [facility] [address] [id number] [address] Apr, [facility] [id number], [place] [id number] Mar, Dental caries K02.9 [facility] [address]00565100[place] [address]11[address] Mar, [facility] [id number], [place] [id number] Mar, Dental examination Z01.20 [facility] [address] [place] [address] [phone] 5519 Feb, [facility] [address] [id number], [place] [id number] January, COPD mixed type J44.9 [facility] [address] [facility] [id number][place] [id number] January, [facility] [id number], [place] [id number] January, [facility] [address] [id number] [address] 3[address] January, [facility] [id number] [place] [address] [id number] Dec, [facility] [id number] [place] [address] [id number] Dec, [facility] [id number] [place] [address] [id number] Dec, Abdominal mass, LLQ (left lower quadrant) R19.04 [facility] [id number] [place] [address] [id number] Nov, Left lower quadrant pain R10.32 ; Abdominal mass, LLQ (left lower quadrant ) R19.04 ; Weight loss R63.4 ; COPD mixed type J44.9 and Hypoxia R09.02 [facility] [id number] [place] [address] [id number] Nov, [facility] [id number] [place] [address] [id number] Nov, COPD exacerbation J44.1 and Hypoxia R09.02 [facility] [id number] [place] [address] [id number] Nov, Hyponatremia E87.1 and COPD mixed type J44.9 [address] [place] [address] [id number] Nov, COPD mixed type J44.9 [address] [place] [address] [id number] Nov, AVEL (obstructive sleep apnea) G47.33 and Hypoxia R09.02 [facility] [id number] [place] [address] [id number] Nov, [facility] [address] [place] [address] [id number] Oct, [facility] [address] [place] [address] [id number] Oct, COPD mixed type J44.9 ; Hypoxia R09.02 and AVEL (obstructive sleep apnea) G47.33 [facility] [address] [id number], [place] [phone] Oct, [facility] [address] [id number], [place] [id number] Aug, [facility] [address] [id number] [place] [address] [id number] Aug, [facility] [address] [id number] [place] [address] [id number] Aug, COPD mixed type J44.9 ; Hypoxia R09.02 ; Edema of lower extremity R60.0 ; Hyponatremia E87.1 and Tobacco abuse counseling Z71.6 [facility] [id number] [place] [address] [id number] Aug, COPD exacerbation J44.1 [facility] [address] [id number] [place] [address] [id number] Aug, [facility] [id number] [place] [address] [id number] Aug, [facility] [id number] [place] [address] [id number] Aug, [facility] [id number] [place] [address] [id number] Aug, COPD mixed type J44.9 and Hypoxia R09.02 [facility] [place] [address] [place] [address] [id number] [place] [address] Jul [facility] [id number], [place] [id number] Jul, COPD exacerbation J44.1 and Hypoxia R09.02 [facility] [address] [id number], [place] [id number] Jul, COPD exacerbation J44.1 and Homeless Z59.0 [facility] [id number], [place] [id number] Jul, COPD exacerbation J44.1 ; Hypoxia R09.02 ; Community acquired pneumonia, unspecified laterality J18.9 ; Tobacco abuse Z72.0 and Tobacco abuse counseling Z71.6 [facility] [address] [id number] [place] [id number] Jun, [facility] [address] [id number] [place] [phone] Jun, Simple chronic bronchitis J41.0 [facility] [address] [id number] [place] [phone] May, [facility] [address] [id number] [place] [id number] May, [facility] [address] [id number] [place] [phone] May, Simple chronic bronchitis J41.0 [facility] [address] [id number] [place] [id number] Apr, Grief reaction F43.20 and Simple chronic bronchitis J41.0 [facility] [id number] [place] [address] [id number] Apr, [facility] [address] [id number] [place] [address] [id number] Mar, COPD exacerbation J44.1 and Simple chronic bronchitis J41.0 [facility] [address] [id number] [place] [phone] Mar, Well woman exam with routine gynecological exam Z01.419 ; Screening breast examination Z12.31 ; Simple chronic bronchitis J41.0 ; Encounter for vaccination Z23 and Encounter for immunization Z23 [facility] [address] [id number], [place] [id number] Mar, Simple chronic bronchitis J41.0 ; Grief reaction F43.20 and COPD exacerbation J44.1 [facility] [address] [id number], [place] [id number] Feb, COPD exacerbation J44.1 [facility] [id number] [place] [address] [id number] Feb, [facility] [address] [id number], [place] [phone] Feb, Simple chronic bronchitis J41.0 [facility] [address] [id number], [place] [id number] January, Simple chronic bronchitis J41.0 ; Grief reaction F43.20 and COPD exacerbation J44.1 [facility] [address] [facility] [id number] [place] [phone] January, IMMUNIZATIONS No Known Immunizations SOCIAL HISTORY Never Assessed REASON FOR VISIT Refill request PLAN OF CARE VITAL SIGNS MEDICATIONS Medication [...]
--- OUTSIDE RECORDS SUMMARY | 2018-08-21 06:29 | XMS REPORT ---
Author Author BOB ALTMAN Organization [facility] Address [address] [place] [address] Care Team Providers Care Monotype Operator Name Role Phone BOB ALTMAN Unavailable PROBLEMS Type Condition ICD9-CM Code ABT90-XI Code Onset Dates Condition Status SNOMED Code Problem AVEL (obstructive sleep apnea) G47.33 Active 03335691 Problem COPD mixed type J44.9 Active 03378870 Problem Simple chronic bronchitis J41.0 Active 38383951 Problem COPD exacerbation J44.1 Active 180593410 Problem Hypoxia R09.02 Active 526830947 Problem Grief reaction F43.20 Active 44788449 ALLERGIES No Information ENCOUNTERS Encounter Location Date Diagnosis [facility] [address] [id number], [place] [id number] Jul, [facility] [address] [id number], [place] 93375891- 6[address] Apr, [facility] [id number], [place] [id number] Mar, Dental caries K02.9 [facility] [address] [id number], [place] 21092375- 5603 Mar, [facility] [id number], [place] [id number] Mar, Dental examination Z01.20 [facility] [address] [place] [address] [phone]- 4226 Feb, [facility] [address] [id number], [place] [id number] January, COPD mixed type J44.9 [facility] [address] [facility] [id number], [place] [id number] January, [facility] [id number], [place] [phone] January, [facility] [address] [id number], [place] [address]- [address] January, [facility] [id number] [place] [address] [id number] Dec, [facility] [id number] [place] [address] [id number] Dec, [facility] [id number] [place] [address] [id number] Dec, Abdominal mass, LLQ (left lower quadrant) R19.04 [facility] [id number] [place] [address] [id number] Nov, Left lower quadrant pain R10.32 ; Abdominal mass, LLQ (left lower quadrant ) R19.04 ; Weight loss R63.4 ; COPD mixed type J44.9 and Hypoxia R09.02 [facility] [id number] [place] [address] [phone] Nov, [facility] [id number] [place] [address] [id number] Nov, COPD exacerbation J44.1 and Hypoxia R09.02 [facility] [id number] [place] [address] [id number] Nov, Hyponatremia E87.1 and COPD mixed type J44.9 [address] [place] [address] [id number] Nov, COPD mixed type J44.9 [address] [place] [address] [id number] Nov, AVEL (obstructive sleep apnea) G47.33 and Hypoxia R09.02 [facility] [id number] [place] [address] [id number] Nov, [facility] [address] [place] [address] [id number] Oct, [facility] [address] [place] [address] [id number] Oct, COPD mixed type J44.9 ; Hypoxia R09.02 and AVEL (obstructive sleep apnea) G47.33 [facility] [address] [facility] [address] [id number], [place] [phone] Oct, [facility] [address] [id number], [place] [id number] Aug, [facility] [id number] [place] [address] [id number] Aug, [facility] [id number] [place] [address] [id number] Aug, COPD mixed type J44.9 ; Hypoxia R09.02 ; Edema of lower extremity R60.0 ; Hyponatremia E87.1 and Tobacco abuse counseling Z71.6 [facility] [id number] [place] [address] [id number] Aug, COPD exacerbation J44.1 [facility] [id number] [place] [address] [id number] Aug, [facility] [id number] [place] [address] [id number] Aug, [facility] [id number] [place] [address] [id number] Aug, [facility] [id number] [place] [address] [id number] Aug, COPD mixed type J44.9 and Hypoxia R09.02 [facility] [place] [address] [place] [address] [id number] [place] [address] Jul [facility] [id number], [place] [id number] Jul, COPD exacerbation J44.1 and Hypoxia R09.02 [facility] [address] [facility] [id number], [place] [id number] Jul, COPD exacerbation J44.1 and Homeless Z59.0 [facility] [id number], [place] [id number] Jul, COPD exacerbation J44.1 ; Hypoxia R09.02 ; Community acquired pneumonia, unspecified laterality J18.9 ; Tobacco abuse Z72.0 and Tobacco abuse counseling Z71.6 [facility] [address] [id number] [place] [id number] Jun, Simple chronic bronchitis J41.0 [facility] [address] [id number] [place] [id number] Jun, [facility] [address] [id number] [place] [id number] May, [facility] [address] [id number] [place] [id number] May, [facility] [address] [id number] [place] [id number] May, Simple chronic bronchitis J41.0 [facility] [address] [id number] [place] [id number] Apr, Grief reaction F43.20 and Simple chronic bronchitis J41.0 [facility] [address] [id number] [place] [id number] Apr, [facility] [address] [id number] [place] [address] [id number] Mar, COPD exacerbation J44.1 and Simple chronic bronchitis J41.0 [facility] [address] [id number] [id number] Mar, Well woman exam with routine gynecological exam Z01.419 ; Screening breast examination Z12.31 ; Simple chronic bronchitis J41.0 ; Encounter for vaccination Z23 and Encounter for immunization Z23 [facility] [address] [id number] [place] [id number] Mar, Simple chronic bronchitis J41.0 ; Grief reaction F43.20 and COPD exacerbation J44.1 [facility] [address] [id number] [id number] Feb, COPD exacerbation J44.1 [facility] [address] [id number] [place] [id number] Feb, [facility] [address] [id number][place] [id number] Feb, Simple chronic bronchitis J41.0 [facility] [address] [id number][place] [id number] January, Simple chronic bronchitis J41.0 ; Grief reaction F43.20 and COPD exacerbation J44.1 [facility] [address] [facility] [id number] [place] [phone] January, IMMUNIZATIONS No Known Immunizations SOCIAL HISTORY Never Assessed REASON FOR VISIT eye appt PLAN OF CARE VITAL SIGNS MEDICATIONS Unknown [...]
--- OUTSIDE RECORDS SUMMARY | 2018-08-21 06:29 | XMS REPORT ---
Author Author BOB ALTMAN Organization [facility] Address [address] [place] [address] Care Team Providers Care Speeder Machine Operator Name Role Phone BOB ALTMAN Unavailable PROBLEMS Type Condition ICD9-CM Code DES95-AQ Code Onset Dates Condition Status SNOMED Code Problem AVEL (obstructive sleep apnea) G47.33 Active 71233311 Problem COPD mixed type J44.9 Active 54487743 Problem Simple chronic bronchitis J41.0 Active 23037656 Problem COPD exacerbation J44.1 Active 481233019 Problem Hypoxia R09.02 Active 933858684 Problem Grief reaction F43.20 Active 66347255 ALLERGIES No Information ENCOUNTERS Encounter Location Date Diagnosis [facility] [employer] [id number], [place] [id number] Jul, [facility] [address] [id number] [phone]- [address] Apr, [facility] [id number], [place] [id number] Mar, Dental caries K02.9 [facility] [address], [place] [id number] Mar, [facility] [id number], [place] [id number] Mar, Dental examination Z01.20 [facility] [address] [place] [address] [id number]- [phone] Feb, [facility] [address] [id number], [place] [id number] January, COPD mixed type J44.9 [facility] [address] [facility] [id number], [place] [phone] January, [facility] [id number], [place] [id number] January, [facility] [address] [id number], [place] [address] January, [facility] [id number] [place] [address] [id number] Dec, [facility] [id number] [place] [address] [id number] Dec, [facility] [id number] [place] [address] [id number] Dec, Abdominal mass, LLQ (left lower quadrant) R19.04 [facility] [id number] [place] [address] [phone] Nov, Left lower quadrant pain R10.32 ; Abdominal mass, LLQ (left lower quadrant ) R19.04 ; Weight loss R63.4 ; COPD mixed type J44.9 and Hypoxia R09.02 [facility] [id number] [place] [address] [id number] Nov, [facility] [id number] [place] [address] [id number] Nov, COPD exacerbation J44.1 and Hypoxia R09.02 [facility] [id number] [place] [address] [id number] Nov, Hyponatremia E87.1 and COPD mixed type J44.[address] [place] [address] [id number] Nov, COPD mixed type J44.9 [address] [place] [address] [id number] Nov, AVEL (obstructive sleep apnea) G47.33 and Hypoxia R09.02 [facility] [id number] [place] [address] [id number] Nov, [facility] [address] [place] [address] [id number] Oct, [facility] [address] [place] [address] [id number] Oct, COPD mixed type J44.9 ; Hypoxia R09.02 and AVEL (obstructive sleep apnea) G47.33 [facility] [address] [facility] [address] [id number], [place] [phone] Oct, [facility] [address] [id number], [place] [phone] Aug, [facility] [address] [id number] [place] [address] [phone] Aug, [facility] [address] [id number] [place] [address] [id number] Aug, COPD mixed type J44.9 ; Hypoxia R09.02 ; Edema of lower extremity R60.0 ; Hyponatremia E87.1 and Tobacco abuse counseling Z71.6 [facility] [id number] [place] [address] [id number] Aug, COPD exacerbation J44.1 [facility] [address] [id number] [place] [address] [id number] Aug, [facility] [id number] [place] [address] [id number] Aug, [facility] [address] [id number] [place] [address] [id number] Aug, [facility] [id number] [place] [address] [id number] Aug, COPD mixed type J44.9 and Hypoxia R09.02 [facility] [place] [address] [place] [address] [id number] [place] [address] Jul [facility] [id number], [place] [phone] Jul, COPD exacerbation J44.1 and Hypoxia R09.02 [facility] [address] [facility] [address] [id number], [place] [id number] Jul, COPD exacerbation J44.1 and Homeless Z59.0 [facility] [id number], [place] [id number] Jul, COPD exacerbation J44.1 ; Hypoxia R09.02 ; Community acquired pneumonia, unspecified laterality J18.9 ; Tobacco abuse Z72.0 and Tobacco abuse counseling Z71.6 [facility] [address] [id number] [place] [phone] Jun, [facility] [address] [id number] [place] [phone] Jun, Simple chronic bronchitis J41.0 [facility] [address] [id number] [place] [phone] May, [facility] [address] [id number] [place] [phone] May, [facility] [address] [id number] [place] [phone] May, Simple chronic bronchitis J41.0 [facility] [address] [id number] [place] [id number] Apr, Grief reaction F43.20 and Simple chronic bronchitis J41.0 [facility] [address] [id number] [place] [address] [id number] Apr, [facility] [id number] [place] [address] [id number] Mar, COPD exacerbation J44.1 and Simple chronic bronchitis J41.0 [facility] [address] [id number] [place] [id number] Mar, Well woman exam with routine gynecological exam Z01.419 ; Screening breast examination Z12.31 ; Simple chronic bronchitis J41.0 ; Encounter for vaccination Z23 and Encounter for immunization Z23 [facility] [address] [id number], [place] [phone] Mar, Simple chronic bronchitis J41.0 ; Grief reaction F43.20 and COPD exacerbation J44.1 [facility] [address] [id number], [place] [phone] Feb, COPD exacerbation J44.1 [facility] [address] [id number] [place] [address] [id number] Feb, [facility] [address] [id number], [place] [id number] Feb, Simple chronic bronchitis J41.0 [facility] [address] [id number], [place] [phone] January, Simple chronic bronchitis J41.0 ; Grief reaction F43.20 and COPD exacerbation J44.1 [facility] [address] [facility] [id number] [place] [phone] January, IMMUNIZATIONS No Known Immunizations SOCIAL HISTORY [...]
--- OUTSIDE RECORDS SUMMARY | 2018-08-21 06:29 | XMS REPORT ---
Author Author DEISI Romero [facility] Address [address] [place] [address] Care Team Providers Care Netbackup Engineer Name Role Phone DEISI Romero Unavailable PROBLEMS Type Condition ICD9-CM Code CPR89-SM Code Onset Dates Condition Status SNOMED Code Problem AVEL (obstructive sleep apnea) G47.33 Active 10051594 Problem COPD mixed type J44.9 Active 88942471 Problem Simple chronic bronchitis J41.0 Active 18075850 Problem COPD exacerbation J44.1 Active 232061003 Problem Hypoxia R09.02 Active 423552738 Problem Grief reaction F43.20 Active 16875949 ALLERGIES No Information ENCOUNTERS Encounter Location Date Diagnosis [facility] [address] [facility] [id number], [place] [phone] Jul, [facility] [place] [address] [place] [address] [phone] [address] Apr, [address] [id number], [place] [id number] Mar, Dental caries K02.9 [facility] [place] [address]00565100[place], [place] 62089627- [address] Mar, [address] [id number], [place] [id number] Mar, Dental examination Z01.20 [facility] [place] [address] [place] [address] [phone] Feb, [facility] [address] [id number] [place]OU[place] [phone] January, COPD mixed type J44.9 [facility] [address] [id number] [place]OU[place] [id number] January, [facility] [address] [id number] [place]OU[place] [phone] January, [facility] [address] [id number] [address] January, [facility] [id number] [place] [address] [phone] Dec, [facility] [id number] [place] [address] [id number] Dec, [facility] [id number] [place] [address] [id number] Dec, Abdominal mass, LLQ (left lower quadrant) R19.04 [facility] [id number] [place] [address] [id number] Nov, Left lower quadrant pain R10.32 ; Abdominal mass, LLQ (left lower quadrant ) R19.04 ; Weight loss R63.4 ; COPD mixed type J44.9 and Hypoxia R09.02 [facility] [id number] [place] [address] [id number] Nov, [facility] [id number] [place] [address] [id number] Nov, COPD exacerbation J44.1 and Hypoxia R09.02 [facility] [id number] [place] [address] [id number] Nov, Hyponatremia E87.1 and COPD mixed type J44.9 [address] [place] [address] [id number] Nov, COPD mixed type J44.9 [facility] [id number] [place] [address] [id number] Nov, AVEL (obstructive sleep apnea) G47.33 and Hypoxia R09.02 [facility] [address] [place] [address] [id number] Nov, [facility] [id number] [place] [address] [id number] Oct, [facility] [id number] [place] [address] [phone] Oct, COPD mixed type J44.9 ; Hypoxia R09.02 and AVEL (obstructive sleep apnea) G47.33 [facility] [address] [facility] [address] [id number], [place] [phone] Oct, [facility] [address]00565100[place] [phone] Aug, [facility] [address] [facility] [id number] [place] [address] [id number] Aug, [facility] [id number] [place] [address] [id number] Aug, COPD mixed type J44.9 ; Hypoxia R09.02 ; Edema of lower extremity R60.0 ; Hyponatremia E87.1 and Tobacco abuse counseling Z71.6 [facility] [address] [place] [address] [id number] Aug, COPD exacerbation J44.1 [facility] [address] [facility] [id number] [place] [address] [id number] Aug, [facility] [address] [place] [address] [id number] Aug, [facility] [address]00565100[place] [id number] Aug, [facility] [address] [place] [address] [id number] Aug, COPD mixed type J44.9 and Hypoxia R09.02 [facility] [place] [address] [place] [address] [id number] [place] [address] Jul [facility] [address] [place] [address] [id number] Jul, COPD exacerbation J44.1 and Hypoxia R09.02 [facility] [address] [facility] [address] [id number], [place] [id number] Jul, COPD exacerbation J44.1 and Homeless Z59.0 [facility] [address]00565100[place] [id number] Jul, COPD exacerbation J44.1 ; Hypoxia R09.02 ; Community acquired pneumonia, unspecified laterality J18.9 ; Tobacco abuse Z72.0 and Tobacco abuse counseling Z71.6 [facility] [address] [id number] ROUGE, [place] [phone] Jun, [facility] [address] [id number] [place] [phone] Jun, Simple chronic bronchitis J41.0 [facility] [address] [id number] [place] [phone] May, [facility] [address] [id number] [place] [phone] May, [facility] [address] [id number] [place]OU[place] [id number] May, Simple chronic bronchitis J41.0 [facility] [address] [id number] [place] [phone] Apr, Grief reaction F43.20 and Simple chronic bronchitis J41.0 [facility] [address] [id number] ROUGE[place] [id number] Apr, [facility] [address] [id number] [place] [address] [id number] Mar, COPD exacerbation J44.1 and Simple chronic bronchitis J41.0 [facility] [address] [id number] ROUGE, [place] [id number] Mar, Well woman exam with routine gynecological exam Z01.419 ; Screening breast examination Z12.31 ; Simple chronic bronchitis J41.0 ; Encounter for vaccination Z23 and Encounter for immunization Z23 [facility] [address] [id number] [place]OU[place] [id number] Mar, Simple chronic bronchitis J41.0 ; Grief reaction F43.20 and COPD exacerbation J44.1 [facility] [address] [id number] [place]OUGE, [place] [id number] Feb, COPD exacerbation J44.1 [facility] [address] [id number] ROUGE, [place] [id number] Feb, [facility] [address] [id number] ROUGE, [place] [id number] Feb, Simple chronic bronchitis J41.0 [facility] [address] [id number] ROUGE, [place] [id number] January, Simple chronic bronchitis J41.0 ; Grief reaction F43.20 and COPD exacerbation J44.1 [facility] [address] [facility] [id number] [place] [phone] January, IMMUNIZATIONS No Known Immunizations SOCIAL HISTORY [...]
--- OUTSIDE RECORDS SUMMARY | 2018-08-21 06:30 | XMS REPORT ---
Author Author BOB ALTMAN [facility] Address [address] [place] [address] Care Team Providers Care Commercial Fisher Name Role Phone BOB ALTMAN Unavailable PROBLEMS Type Condition ICD9-CM Code HTM33-YG Code Onset Dates Condition Status SNOMED Code Problem AVEL (obstructive sleep apnea) G47.33 Active 54499991 Problem COPD mixed type J44.9 Active 75812278 Problem Simple chronic bronchitis J41.0 Active 18135035 Problem COPD exacerbation J44.1 Active 726432317 Problem Hypoxia R09.02 Active 751192207 Problem Grief reaction F43.20 Active 66124037 ALLERGIES No Information ENCOUNTERS Encounter Location Date Diagnosis [facility] [address] [id number], [place] [phone] Jul, [facility] [place] [id number] [place] [address] [phone] Apr, [address] [id number], [place] [id number] Mar, Dental caries K02.9 [facility] [place] [address] [id number], [place] 08716834- [address]556 Mar, [address] [id number], [place] [id number] Mar, Dental examination Z01.20 [facility] [place] [address] [place] [address] [phone]- [phone] Feb, [facility] [address] [id number], [place] [id number] January, COPD mixed type J44.9 [facility] [address] [facility] [id number], [place] [phone] January, [facility] [id number], [place] [id number] January, [facility] [address] [id number] [address]- [address] January, [facility] [id number] [place] [address] [id number] Dec, [facility] [id number] [place] [address] [id number] Dec, [facility] [id number] [place] [address] [id number] Dec, Abdominal mass, LLQ (left lower quadrant) R19.04 [facility] [id number] [place] [address] [id number] Nov, Left lower quadrant pain R10.32 ; Abdominal mass, LLQ (left lower quadrant ) R19.04 ; Weight loss R63.4 ; COPD mixed type J44.9 and Hypoxia R09.02 [facility] [id number] [place] [address] [id number] Nov, [facility] [id number] [place] [address] [id number] Nov, COPD exacerbation J44.1 and Hypoxia R09.02 [place] [id number] [place] [address] [id number] Nov, Hyponatremia E87.1 and COPD mixed type J44.9 [id number] [place] [address] [id number] Nov, COPD mixed type J44.9 [facility] [id number] [place] [address] [id number] Nov, AVEL (obstructive sleep apnea) G47.33 and Hypoxia R09.02 [facility] [id number] [place] [address] [id number] Nov, [facility] [id number] [place] [address] [id number] Oct, [facility] [address] [place] [address] [id number] Oct, COPD mixed type J44.9 ; Hypoxia R09.02 and AVEL (obstructive sleep apnea) G47.33 [facility] [address] [facility] [address] [id number], [place] [id number] Oct, [facility] [address] [id number], [place] [id number] Aug, [facility] [address] [id number] [place] [address] [id number] Aug, [facility] [id number] [place] [address] [id number] Aug, COPD mixed type J44.9 ; Hypoxia R09.02 ; Edema of lower extremity R60.0 ; Hyponatremia E87.1 and Tobacco abuse counseling Z71.6 [facility] [place] [id number] [place] [address] [id number] Aug, COPD exacerbation J44.1 [facility] [id number] [place] [address] [id number] Aug, [facility] [id number] [place] [address] [id number] Aug, [facility] [address] [address] [id number], [place] [id number] Aug, [facility] [place] [id number] [place] [address] [id number] Aug, COPD mixed type J44.9 and Hypoxia R09.02 [facility] [place] [address] [place] [address] [id number] [place] [address] Jul [facility] [id number] [place] [address] [id number] Jul, COPD exacerbation J44.1 and Hypoxia R09.02 [facility] [address] [facility] [address] [id number], [place] [id number] Jul, COPD exacerbation J44.1 and Homeless Z59.0 [facility] [id number], [place] [id number] Jul, COPD exacerbation J44.1 ; Hypoxia R09.02 ; Community acquired pneumonia, unspecified laterality J18.9 ; Tobacco abuse Z72.0 and Tobacco abuse counseling Z71.6 [facility] [address] [id number] [place] [id number] Jun, [facility] [address] [id number] [place] [id number] Jun, Simple chronic bronchitis J41.0 [facility] [address] [id number] [place] [id number] May, [facility] [id number] [place] [address] [id number] May, [facility] [address] [id number] [place] [address] [id number] May, Simple chronic bronchitis J41.0 [facility] [address] [id number] [place] [id number] Apr, Grief reaction F43.20 and Simple chronic bronchitis J41.0 [facility] [id number] [place] [address] [id number] Apr, [facility] [address] [id number] [place] [address] [id number] Mar, COPD exacerbation J44.1 and Simple chronic bronchitis J41.0 [facility] [address] [id number], [place] [id number] Mar, Well woman exam with routine gynecological exam Z01.419 ; Screening breast examination Z12.31 ; Simple chronic bronchitis J41.0 ; Encounter for vaccination Z23 and Encounter for immunization Z23 [facility] [place] [address] [id number] [id number] Mar, Simple chronic bronchitis J41.0 ; Grief reaction F43.20 and COPD exacerbation J44.1 [facility] [place] [address] [id number][place] [id number] Feb, COPD exacerbation J44.1 [facility] [place] [address] [id number] [place] [id number] Feb, [facility] [place] [address] [id number][place] [id number] Feb, Simple chronic bronchitis J41.0 [facility] [place] [address] [id number][place] [id number] January, Simple chronic bronchitis J41.0 ; Grief reaction F43.20 and COPD exacerbation J44.1 [facility] [address] [facility] [id number] [place] [id number] January, IMMUNIZATIONS No Known Immunizations SOCIAL HISTORY Never Assessed REASON FOR VISIT Medication refill request PLAN OF CARE VITAL SIGNS MEDICATIONS Unknown [...]
--- OUTSIDE RECORDS SUMMARY | 2018-08-21 06:30 | XMS REPORT ---
Author Author BOB ALTMAN Organization [facility] Address [address] [place] [address] Care Team Providers Care Refinery Pipeline Operator Name Role Phone BOB ALTMAN Unavailable PROBLEMS Type Condition ICD9-CM Code CMG75-JA Code Onset Dates Condition Status SNOMED Code Problem AVEL (obstructive sleep apnea) G47.33 Active 55653016 Problem COPD mixed type J44.9 Active 78869142 Problem Simple chronic bronchitis J41.0 Active 35808421 Problem COPD exacerbation J44.1 Active 118557264 Problem Hypoxia R09.02 Active 076504268 Problem Grief reaction F43.20 Active 37681304 ALLERGIES No Information ENCOUNTERS Encounter Location Date Diagnosis [facility] [address] [id number] [id number] Jul, [facility] [address] [id number] [address] Apr, [facility] [id number][place] [id number] Mar, Dental caries K02.9 [facility] [address]005[address]100[place] [address] Mar, [facility] [id number], [place] [phone] Mar, Dental examination Z01.20 [facility] [address] [place] [address] [id number]- [phone] Feb, [facility] [address] [id number] [place]ILL[place] [id number] January, COPD mixed type J44.9 [facility] [address] [facility] [id number] [place] [id number] January, [facility] [id number] [place]ILL[place] [id number] January, [facility] [address] [id number] [address] January, [facility] [id number] [place] [address] [id number] Dec, [facility] [id number] [place] [address] [id number] Dec, [facility] [id number] [place] [address] [phone] Dec, Abdominal mass, LLQ (left lower quadrant) R19.04 [facility] [id number] [place] [address] [id number] Nov, Left lower quadrant pain R10.32 ; Abdominal mass, LLQ (left lower quadrant ) R19.04 ; Weight loss R63.4 ; COPD mixed type J44.9 and Hypoxia R09.02 [facility] [id number] [place] [address] [id number] Nov, [facility] [id number] [place] [address] [id number] Nov, COPD exacerbation J44.1 and Hypoxia R09.02 [facility] [id number] [place] [address] [id number] Nov, Hyponatremia E87.1 and COPD mixed type J44.[address] [place] [address] [id number] Nov, COPD mixed type J44.9 [address] [place] [address] [phone] Nov, AVEL (obstructive sleep apnea) G47.33 and Hypoxia R09.02 [facility] [id number] [place] [address] [id number] Nov, [facility] [address] [place] [address] [id number] Oct, [facility] [address] [place] [address] [id number] Oct, COPD mixed type J44.9 ; Hypoxia R09.02 and AVEL (obstructive sleep apnea) G47.33 [facility] [address] [facility] [address] [id number], [place] [id number] Oct, [facility] [address] [id number] [place] [phone] Aug, [facility] [address] [id number] [place] [address] [id number] Aug, [facility] [address] [id number] [place] [address] [id number] Aug, COPD mixed type J44.9 ; Hypoxia R09.02 ; Edema of lower extremity R60.0 ; Hyponatremia E87.1 and Tobacco abuse counseling Z71.6 [facility] [id number] [place] [address] [id number] Aug, COPD exacerbation J44.1 [facility] [address] [id number] [place] [address] [id number] Aug, [facility] [id number] [place] [address] [id number] Aug, [facility] [address] [id number] [place] [address] [id number] Aug, [facility] [id number] [place] [address] [id number] Aug, COPD mixed type J44.9 and Hypoxia R09.02 [facility] [place] [address] [place] [address] [id number] [place] [address] Jul [facility] [id number] [place] [id number] Jul, COPD exacerbation J44.1 and Hypoxia R09.02 [facility] [address] [facility] [id number], [place] [id number] Jul, COPD exacerbation J44.1 and Homeless Z59.0 [facility] [id number] [place]ILL[place] [id number] Jul, COPD exacerbation J44.1 ; Hypoxia R09.02 ; Community acquired pneumonia, unspecified laterality J18.9 ; Tobacco abuse Z72.0 and Tobacco abuse counseling Z71.6 [facility] [address] [id number] [place] [phone] Jun, Simple chronic bronchitis J41.0 [facility] [address] [id number] [place] [phone] Jun, [facility] [address] [id number] [place] [phone] May, [facility] [id number] [place] [address] [id number] May, [facility] [address] [id number] [place] [id number] May, Simple chronic bronchitis J41.0 [facility] [address] [id number] [place] [phone] Apr, Grief reaction F43.20 and Simple chronic bronchitis J41.0 [facility] [id number] [place] [address] [id number] Apr, [facility] [address] [id number] [place] [address] [id number] Mar, COPD exacerbation J44.1 and Simple chronic bronchitis J41.0 [facility] [address] [id number] [place]ILL[place] [phone] Mar, Well woman exam with routine gynecological exam Z01.419 ; Screening breast examination Z12.31 ; Simple chronic bronchitis J41.0 ; Encounter for vaccination Z23 and Encounter for immunization Z23 [facility] [address] [id number] [place] [address] [id number] Mar, Simple chronic bronchitis J41.0 ; Grief reaction F43.20 and COPD exacerbation J44.1 [facility] [address] [id number] [place]ILL[place] [phone] Feb, COPD exacerbation J44.1 [facility] [address] [id number] [place] [address] [id number] Feb, [facility] [address] [id number] [place]ILL[place] [phone] Feb, Simple chronic bronchitis J41.0 [facility] [address] [id number] [place]ILL[place] [id number] January, Simple chronic bronchitis J41.0 ; Grief reaction F43.20 and COPD exacerbation J44.1 [facility] [address] [facility] [id number] [place] [phone] January, IMMUNIZATIONS No Known Immunizations SOCIAL HISTORY [...]
--- OUTSIDE RECORDS SUMMARY | 2018-08-21 06:30 | XMS REPORT ---
Author Author ISI DEVRIES [facility] Address [address] [place] [address] Care Team Providers Care Cnc Laser Operator Name Role Phone ASA DEVRIESARDO Unavailable PROBLEMS Type Condition ICD9-CM Code ZTT86-RE Code Onset Dates Condition Status SNOMED Code Problem AVEL (obstructive sleep apnea) G47.33 Active 58885784 Problem COPD mixed type J44.9 Active 69538518 Problem Simple chronic bronchitis J41.0 Active 01745801 Problem COPD exacerbation J44.1 Active 952809476 Problem Hypoxia R09.02 Active 669779436 Problem Grief reaction F43.20 Active 66423054 ALLERGIES No Information ENCOUNTERS Encounter Location Date Diagnosis [facility] [address] [facility] [id number], [place] [id number] Jul, [facility] [address]00565100[place], [place] [address] Apr, [address] [id number], [place] [id number] Mar, Dental caries K02.9 [facility] [address] [id number], [place] [address] Mar, [address] [id number], [place] [id number] Mar, Dental examination Z01.20 [facility] [address] [facility] [id number], [place] 26197318[address] Feb, [facility] [address] [id number], [place] [id number] January, COPD mixed type J44.9 [facility] [address] [id number], [place] [phone] January, [facility] [id number], [place] [id number] January, [facility] [address]00565100[place], [place] [address] January, [facility] [id number] [place] [address] [id number] Dec, [facility] [id number] [place] [address] [id number] Dec, [facility] [id number] [place] [address] [id number] Dec, Abdominal mass, LLQ (left lower quadrant) R19.04 [facility] [id number] [place] [address] [id number] Nov, Left lower quadrant pain R10.32 ; Abdominal mass, LLQ (left lower quadrant ) R19.04 ; Weight loss R63.4 ; COPD mixed type J44.9 and Hypoxia R09.02 [facility] [id number] [place] [address] [id number] Nov, [facility] [id number] [place] [address] [id number] Nov, COPD exacerbation J44.1 and Hypoxia R09.02 [id number] [place] [address] [id number] Nov, Hyponatremia E87.1 and COPD mixed type J44.9 [address] [place] [address] [id number] Nov, COPD mixed type J44.9 [facility] [address] [place] [address] [id number] Nov, AVEL (obstructive sleep apnea) G47.33 and Hypoxia R09.02 [facility] [address] [place] [address] [id number] Nov, [facility] [address] [place] [address] [id number] Oct, [facility] [address] [place] [address] [id number] Oct, COPD mixed type J44.9 ; Hypoxia R09.02 and AVEL (obstructive sleep apnea) G47.33 [facility] [address] [id number], [place] [id number] Oct, [facility] [address] [id number], [place] [id number] Aug, [facility] [id number] [place] [address] [id number] Aug, [facility] [id number] [place] [address] [id number] Aug, COPD mixed type J44.9 ; Hypoxia R09.02 ; Edema of lower extremity R60.0 ; Hyponatremia E87.1 and Tobacco abuse counseling Z71.6 [facility] [address] [place] [address] [id number] Aug, COPD exacerbation J44.1 [facility] [address] [id number] [place] [address] [id number] Aug, [facility] [id number] [place] [address] [id number] Aug, [facility] [id number] [place] [address] [id number] Aug, [facility] [id number] [place] [address] [id number] Aug, COPD mixed type J44.9 and Hypoxia R09.02 [facility] [place] [address] [place] [address] [id number] [place] [address] Jul [facility] [address]00565100[place], [place] [id number] Jul, COPD exacerbation J44.1 and Hypoxia R09.02 [facility] [address] [id number], [place] [id number] Jul, COPD exacerbation J44.1 and Homeless Z59.0 [facility] [address]00565100[place] [id number] Jul, COPD exacerbation J44.1 ; Hypoxia R09.02 ; Community acquired pneumonia, unspecified laterality J18.9 ; Tobacco abuse Z72.0 and Tobacco abuse counseling Z71.6 [facility] [address] [id number] [place] [id number] Jun, [facility] [address] [id number] [place] [id number] Jun, Simple chronic bronchitis J41.0 [facility] [address] [id number] [place] [phone] May, [facility] [address] [id number] [place] [id number] May, [facility] [address] [id number] [place] [phone] May, Simple chronic bronchitis J41.0 [facility] [address] [id number] [place] [id number] Apr, Grief reaction F43.20 and Simple chronic bronchitis J41.0 [facility] [address] [id number] [place] [id number] Apr, [facility] [address] [id number] [place] [id number] Mar, COPD exacerbation J44.1 and Simple chronic bronchitis J41.0 [facility] [address] [id number] [place] [phone] Mar, Well woman exam with routine gynecological exam Z01.419 ; Screening breast examination Z12.31 ; Simple chronic bronchitis J41.0 ; Encounter for vaccination Z23 and Encounter for immunization Z23 [facility] [address] [id number], [place] [id number] Mar, Simple chronic bronchitis J41.0 ; Grief reaction F43.20 and COPD exacerbation J44.1 [facility] [address] [id number], [place] [id number] Feb, COPD exacerbation J44.1 [facility] [address] [id number] [place] [id number] Feb, [facility] [address] [id number], [place] [id number] Feb, Simple chronic bronchitis J41.0 [facility] [address] [id number], [place] [id number] January, Simple chronic bronchitis J41.0 ; Grief reaction F43.20 and COPD exacerbation J44.1 [facility] [address] [facility] [id number] [place] [id number] January, IMMUNIZATIONS No Known Immunizations SOCIAL HISTORY Never Assessed REASON FOR VISIT LVM PLAN OF CARE VITAL SIGNS MEDICATIONS Unknown [...]
--- OUTSIDE RECORDS SUMMARY | 2018-08-21 06:30 | XMS REPORT ---
Author Author BOB ALTMAN [facility] Address [address] [place] [address] Care Team Providers Care Wedding Consultant Name Role Phone BOB ALTMAN Unavailable PROBLEMS Type Condition ICD9-CM Code CQW44-PH Code Onset Dates Condition Status SNOMED Code Problem AVEL (obstructive sleep apnea) G47.33 Active 27916720 Problem COPD mixed type J44.9 Active 69802787 Problem Simple chronic bronchitis J41.0 Active 22444841 Problem COPD exacerbation J44.1 Active 885016516 Problem Hypoxia R09.02 Active 282087824 Problem Grief reaction F43.20 Active 17198141 ALLERGIES No Information ENCOUNTERS Encounter Location Date Diagnosis [facility] [address] [id number] [place]OU[place] [id number] Jul, [facility] [id number] [place] [address] [id number]- 4390 Apr, [address] [id number] ROU[place] [id number] Mar, Dental caries K02.9 [facility] [address] [id number] 77473687- [address] Mar, [address] [id number] ROUGE, [place] [id number] Mar, Dental examination Z01.20 [facility] [address] [place] [address] [id number] 6122 Feb, [facility] [address] [id number] [place] [id number] January, COPD mixed type J44.9 [facility] [address] [facility] [id number] [place] [id number] January, [facility] [id number] [place] [id number] January, [facility] [place] [address] [id number], [place] [address]- [address] January, [facility] [place] [id number] [place] [address] [id number] Dec, [facility] [id number] [place] [address] [id number] Dec, [facility] [id number] [place] [address] [id number] Dec, Abdominal mass, LLQ (left lower quadrant) R19.04 [facility] [place] [id number] [place] [address] [id number] Nov, Left lower quadrant pain R10.32 ; Abdominal mass, LLQ (left lower quadrant ) R19.04 ; Weight loss R63.4 ; COPD mixed type J44.9 and Hypoxia R09.02 [facility] [place] [id number] [place] [address] [id number] Nov, [facility] [place] [id number] [place] [address] [id number] Nov, COPD exacerbation J44.1 and Hypoxia R09.02 [id number] [place] [address] [id number] Nov, Hyponatremia E87.1 and COPD mixed type J44.9 [id number] [place] [address] [id number] Nov, COPD mixed type J44.9 [facility] [id number] [place] [address] [id number] Nov, AVEL (obstructive sleep apnea) G47.33 and Hypoxia R09.02 [facility] [id number] [place] [address] [id number] Nov, [facility] [id number] [place] [address] [id number] Oct, [facility] [place] [address] [place] [address] [id number] Oct, COPD mixed type J44.9 ; Hypoxia R09.02 and AVEL (obstructive sleep apnea) G47.33 [facility] [address] [facility] [address] [id number] ROU[place] [id number] Oct, [facility] [place] [address] [id number] [place] [phone] Aug, [facility] [address] [id number] [place] [address] [id number] Aug, [facility] [place] [id number] [place] [address] [id number] Aug, COPD mixed type J44.9 ; Hypoxia R09.02 ; Edema of lower extremity R60.0 ; Hyponatremia E87.1 and Tobacco abuse counseling Z71.[address] [facility] [address] [address] [id number] [place] [address] [id number] Aug, COPD exacerbation J44.1 [facility] [place] [id number] [place] [address] [id number] Aug, [facility] [address] [address] [id number] [place] [address] [id number] Aug, [facility] [place] [address] [address] [id number] [place] [id number] Aug, [facility] [id number] [place] [address] [id number] Aug, COPD mixed type J44.9 and Hypoxia R09.[address] [facility] [place] [address] [place] [address] [id number] [place] [address] Jul [facility] [place] [id number] [place] [address] [id number] Jul, COPD exacerbation J44.1 and Hypoxia R09.[address] [facility] [address] [facility] [address] [id number] ROU[place], [place] [id number] Jul, COPD exacerbation J44.1 and Homeless Z59.0 [facility] [address] [address] [id number] [place] [phone] Jul, COPD exacerbation J44.1 ; Hypoxia R09.02 ; Community acquired pneumonia, unspecified laterality J18.9 ; Tobacco abuse Z72.0 and Tobacco abuse counseling Z71.6 [facility] [place] [address] [id number] [place] [id number] Jun, [facility] [place] [address] [id number] [place] [id number] Jun, Simple chronic bronchitis J41.0 [facility] [place] [address] [id number] [place] [id number] May, [facility] [place] [id number] [place] [address] [id number] May, [facility] [address] [id number] [place] [address] [id number] May, Simple chronic bronchitis J41.0 [facility] [address] [id number] [place] [id number] Apr, Grief reaction F43.20 and Simple chronic bronchitis J41.0 [facility] [place] [id number] [place] [address] [id number] Apr, [facility] [address] [id number] [place] [address] [id number] Mar, COPD exacerbation J44.1 and Simple chronic bronchitis J41.[address] [facility] [place] [address] [id number] [place] [id number] Mar, Well woman exam with routine gynecological exam Z01.419 ; Screening breast examination Z12.31 ; Simple chronic bronchitis J41.0 ; Encounter for vaccination Z23 and Encounter for immunization Z23 [facility] [place] [address] [id number] [place] [id number] Mar, Simple chronic bronchitis J41.0 ; Grief reaction F43.20 and COPD exacerbation J44.1 [facility] [place] [address] [id number] [place] [id number] Feb, COPD exacerbation J44.1 [facility] [address] [id number] [place] [id number] Feb, [facility] [address] [id number] [place] [id number] Feb, Simple chronic bronchitis J41.0 [facility] [place] [address] [id number] [place] [id number] January, Simple chronic bronchitis J41.0 ; Grief reaction F43.20 and COPD exacerbation J44.1 [facility] [address] [facility] [id number] [place] [phone] January, IMMUNIZATIONS No Known Immunizations SOCIAL HISTORY Never Assessed REASON FOR VISIT Medication question PLAN OF CARE VITAL SIGNS MEDICATIONS Medication Instructions Dosage Frequency Start Date End Date Duration Status Amoxicillin 500 mg Orally every 8 hrs 1 capsule 8h Dec, Dec, 07 days Active RESULTS No Results PROCEDURES No [...]
--- OUTSIDE RECORDS SUMMARY | 2018-08-21 06:30 | XMS REPORT ---
Author Author DEACON MARIE [facility] Address [address] [place] [address] Care Team Providers Care Gluing Machine Feeder Name Role Phone DEACON MARIE Unavailable PROBLEMS Type Condition ICD9-CM Code NCE58-DR Code Onset Dates Condition Status SNOMED Code Problem AVEL (obstructive sleep apnea) G47.33 Active 99507271 Problem COPD mixed type J44.9 Active 59888197 Problem Simple chronic bronchitis J41.0 Active 64815681 Problem COPD exacerbation J44.1 Active 474114189 Problem Hypoxia R09.02 Active 648036937 Problem Grief reaction F43.20 Active [id number] ALLERGIES No Information ENCOUNTERS Encounter Location Date Diagnosis [facility] [address] [id number] [id number] Jul, [facility] [address] [id number] [address] Apr, [facility] [address] [facility] [address] [id number] [id number] Mar, Dental caries K02.9 [facility] [address] [facility] [id number], [place] [address] Mar, [facility] [address] [place] [address] AVE [id number] [id number] Mar, Dental examination Z01.20 [facility] [address] [facility] [id number] [address] Feb, [facility] [address] [id number] [place] [id number] January, COPD mixed type J44.9 [facility] [address] [id number] [place] [phone] January, [facility] [id number] [place] [address] [id number] January, [facility] [address] [id number], [place] [address] January, [facility] [place] [id number] [place] [address] [id number] Dec, [facility] [place] [address] [place] [address] [id number] Dec, [facility] [place] [id number] [place] [address] [id number] Dec, Abdominal mass, LLQ (left lower quadrant) R19.04 [facility] [place] [id number] [place] [address] [id number] Nov, Left lower quadrant pain R10.32 ; Abdominal mass, LLQ (left lower quadrant ) R19.04 ; Weight loss R63.4 ; COPD mixed type J44.9 and Hypoxia R09.02 [id number] [place] [address] [id number] Nov, [facility] [id number] [place] [address] [id number] Nov, COPD exacerbation J44.1 and Hypoxia R09.02 [address] [id number] [place] [address] [id number] Nov, Hyponatremia E87.1 and COPD mixed type J44.[address] [place] [address] [id number] Nov, COPD mixed type J44.9 [address] [place] [address] [id number] Nov, AVEL (obstructive sleep apnea) G47.33 and Hypoxia R09.[address] [place] [address] [id number] Nov, [facility] [address] [place] [address] [id number] Oct, [facility] [address] [place] [address] [id number] Oct, COPD mixed type J44.9 ; Hypoxia R09.02 and AVEL (obstructive sleep apnea) G47.33 [facility] [address] [facility] [address] [id number] [id number] Oct, [facility] [place] [address] [id number] [place] [phone] Aug, [facility] [address] [id number] [place] [phone] Aug, [facility] [place] [address] [id number] [place] [address] [id number] Aug, COPD mixed type J44.9 ; Hypoxia R09.02 ; Edema of lower extremity R60.0 ; Hyponatremia E87.1 and Tobacco abuse counseling Z71.6 [facility] [place] [id number] [place] [address] [id number] Aug, COPD exacerbation J44.1 [facility] [place] [address] [id number] [place] [address] [id number] Aug, [facility] [address] [id number] [place] [phone] Aug, [facility] [place] [address] [address] [id number] [place] [phone] Aug, [facility] [address] [id number] [place] [address] [id number] Aug, COPD mixed type J44.9 and Hypoxia R09.02 [facility] [place] [address] [place] [address] [id number] [place] [address] Jul [facility] [place] [address]00565100[place] [id number] Jul, COPD exacerbation J44.1 and Hypoxia R09.02 [facility] [address] [facility] [address] [id number][place] [id number] Jul, COPD exacerbation J44.1 and Homeless Z59.0 [facility] [address]00565100[place] [id number] Jul, COPD exacerbation J44.1 ; Hypoxia R09.02 ; Community acquired pneumonia, unspecified laterality J18.9 ; Tobacco abuse Z72.0 and Tobacco abuse counseling Z71.6 [facility] [place] [address] [id number] [phone] Jun, [facility] [place] [address] [id number] [place] [phone] Jun, Simple chronic bronchitis J41.0 [facility] [place] [address] [id number] [place] [phone] May, [facility] [place] [address] [id number] [place] [phone] May, [facility] [place] [address] [id number] [place] [phone] May, Simple chronic bronchitis J41.0 [facility] [place] [address] [id number] [place] [phone] Apr, Grief reaction F43.20 and Simple chronic bronchitis J41.0 [facility] [place] [address] [id number] [place] [address] [id number] Apr, [facility] [place] [address] [id number] [place] [id number] Mar, COPD exacerbation J44.1 and Simple chronic bronchitis J41.0 [facility] [place] [address] [id number] [place] [phone] Mar, Well woman exam with routine gynecological exam Z01.419 ; Screening breast examination Z12.31 ; Simple chronic bronchitis J41.0 ; Encounter for vaccination Z23 and Encounter for immunization Z23 [facility] [place] [address] [id number] [place] [id number] Mar, Simple chronic bronchitis J41.0 ; Grief reaction F43.20 and COPD exacerbation J44.1 [facility] [place] [address] [id number] [place] [phone] Feb, COPD exacerbation J44.1 [facility] [place] [address] [id number] [place] [phone] Feb, [facility] [place] [address] [id number] [place] [id number] Feb, Simple chronic bronchitis J41.0 [facility] [place] [address] [id number] CITY[place] [id number] January, Simple chronic bronchitis J41.0 ; Grief reaction F43.20 and COPD exacerbation J44.1 [facility] [address] [facility] [id number] [place] [id number] January, IMMUNIZATIONS No Known Immunizations SOCIAL HISTORY Never Assessed REASON FOR VISIT [facility] PLAN OF CARE VITAL SIGNS MEDICATIONS Unknown [...]
--- OUTSIDE RECORDS SUMMARY | 2018-08-21 06:30 | XMS REPORT ---
Author Author BOB ALTMAN [facility] Address [address] [place] [address] Care Team Providers Care Child Care Cook Name Role Phone BOB ALTMAN Unavailable PROBLEMS Type Condition ICD9-CM Code JUX11-YV Code Onset Dates Condition Status SNOMED Code Problem AVEL (obstructive sleep apnea) G47.33 Active 65997365 Problem COPD mixed type J44.9 Active 14444346 Problem Simple chronic bronchitis J41.0 Active 83196879 Problem COPD exacerbation J44.1 Active 677173384 Problem Hypoxia R09.02 Active 210639689 Problem Grief reaction F43.20 Active [id number] ALLERGIES No Information ENCOUNTERS Encounter Location Date Diagnosis [facility] [address]00565100[place] [id number] Apr, [facility] [id number] [place] [address] [phone] Mar, [facility] [address]00565100[place], [place] [address] Mar, [facility] [address] [id number], [place] [id number] Mar, Dental examination Z01.20 [facility] [address]00565100[place] [address] Feb, [facility] [id number], [place] [id number] January, COPD mixed type J44.9 [facility] [id number], [place] [id number] January, [facility] [id number], [place] [phone] January, [facility] [address] [id number], [place] [address] January, [facility] [id number], [place] [id number] Dec, [facility] [id number] [place] [address] [id number] Dec, [facility] [id number], [place] [phone] Dec, Abdominal mass, LLQ (left lower quadrant) R19.04 [facility] [address] [id number] [id number] Nov, Left lower quadrant pain R10.32 ; Abdominal mass, LLQ (left lower quadrant ) R19.04 ; Weight loss R63.4 ; COPD mixed type J44.9 and Hypoxia R09.02 [facility] [id number], [place] [phone] Nov, [facility] [id number] [place] [address] [id number] Nov, COPD exacerbation J44.1 and Hypoxia R09.02 [facility] [place] [id number] [place] [address] [id number] Nov, Hyponatremia E87.1 and COPD mixed type J44.9 [facility] [place] [id number] [place] [address] [id number] Nov, COPD mixed type J44.9 [facility] [address]00565100[place] [id number] Nov, AVEL (obstructive sleep apnea) G47.33 and Hypoxia R09.02 [facility] [place] [id number], [place] [id number] Nov, [facility] [place] [address]00565100[place], [place] [id number] Oct, [facility] [address] [place] [address] [id number] Oct, COPD mixed type J44.9 ; Hypoxia R09.02 and AVEL (obstructive sleep apnea) G47.33 [facility] [address]00565100[place] [id number] Oct, [facility] [place] [id number], [place] [id number] Aug, [facility] [id number] [place] [address] [id number] Aug, [facility] [place] [address] [id number] [place] [address] [id number] Aug, COPD mixed type J44.9 ; Hypoxia R09.02 ; Edema of lower extremity R60.0 ; Hyponatremia E87.1 and Tobacco abuse counseling Z71.6 [facility] [place] [address] [id number][place] [phone] Aug, COPD exacerbation J44.1 [facility] [place] [id number] [place] [address] [id number] Aug, [facility] [place] [address] [id number] [place] [address] [id number] Aug, [facility] [place] [address] [id number] [place] [address] [id number] Aug, [facility] [place] [id number] [place] [address] [id number] Aug, COPD mixed type J44.9 and Hypoxia R09.02 [facility] [place] [id number] [place] [address] Jul [facility] [place] [id number], [place] [id number] Jul, COPD exacerbation J44.1 and Hypoxia R09.02 [facility] [place] [address] [id number][place] [id number] Jul, COPD exacerbation J44.1 and Homeless Z59.0 [facility] [place] [id number], [place] [id number] Jul, COPD exacerbation J44.1 ; Hypoxia R09.02 ; Community acquired pneumonia, unspecified laterality J18.9 ; Tobacco abuse Z72.0 and Tobacco abuse counseling Z71.6 [facility] [place] [id number], [place] [id number] Jun, [facility] [id number] [place] [address] [id number] Jun, Simple chronic bronchitis J41.0 [facility] [id number] [place] [address] [id number] May, [facility] [id number] [place] [address] [id number] May, [facility] [id number] [place] [address] [id number] May, Simple chronic bronchitis J41.0 [facility] [address] [id number] [place] [address] [id number] Apr, Grief reaction F43.20 and Simple chronic bronchitis J41.0 [facility] [id number] [place] [address] [id number] Apr, [facility] [id number] [place] [address] [id number] Mar, COPD exacerbation J44.1 and Simple chronic bronchitis J41.0 [facility] [id number] [place] [address] [id number] Mar, Well woman exam with routine gynecological exam Z01.419 ; Screening breast examination Z12.31 ; Simple chronic bronchitis J41.0 ; Encounter for vaccination Z23 and Encounter for immunization Z23 [facility] [id number] [place] [address] [id number] Mar, Simple chronic bronchitis J41.0 ; Grief reaction F43.20 and COPD exacerbation J44.1 [facility] [id number] [place] [address] [id number] Feb, COPD exacerbation J44.1 [facility] [id number] [place] [address] [id number] Feb, [facility] [id number] [place] [address] [id number] Feb, Simple chronic bronchitis J41.0 [facility] [id number] [place] [address] [id number] January, Simple chronic bronchitis J41.0 ; Grief reaction F43.20 and COPD exacerbation J44.1 [facility] [id number] [place] [address] [id number] January, IMMUNIZATIONS No Known Immunizations SOCIAL HISTORY Never Assessed REASON FOR VISIT abnormal imaging PLAN OF CARE VITAL SIGNS MEDICATIONS Unknown Medications RESULTS Name Result Date Reference Range CT Scan : Abdomen & Pelvis w/ Contrast PROCEDURES No Known procedures INSTRUCTIONS MEDICATIONS ADMINISTERED No Known Medications MEDICAL (GENERAL) HISTORY Type Description Date Medical History chronic obstructive pulmonary disease (COPD) Medical History chronic bronchitis Medical History 09/05/17 in home sleep study:Obstructive sleep apnea-moderate and nocturnal hypoxemia. Surgical History Blood vessel removal from head 1982 Surgical History tubal ligation Hospitalization History bronchitis
--- OUTSIDE RECORDS SUMMARY | 2018-08-21 06:31 | XMS REPORT ---
Author Author BOB ALTMAN [facility] Address [address] [place] [address] Care Team Providers Care Cost Accountant Name Role Phone BOB ALTMAN Unavailable PROBLEMS Type Condition ICD9-CM Code RFW20-PO Code Onset Dates Condition Status SNOMED Code Problem AVEL (obstructive sleep apnea) G47.33 Active 70523154 Problem COPD mixed type J44.9 Active 97819863 Problem Simple chronic bronchitis J41.0 Active 36480435 Problem COPD exacerbation J44.1 Active 316923452 Problem Hypoxia R09.02 Active 065036606 Problem Grief reaction F43.20 Active 18301470 ALLERGIES No Known Allergies ENCOUNTERS Encounter Location Date Diagnosis [facility] [address], [place] [address] Apr, [id number] [place] [address] [id number] Mar, [facility] [address] [address] Mar, [facility] [address] [id number] [id number] Mar, Dental examination Z01.20 [facility] [address] [address] Feb, [facility] [id number] [id number] January, COPD mixed type J44.9 [facility] [address] [id number] [id number] January, [facility] [id number], [place] [id number] January, [facility] [id number] [address] January, [facility] [id number], [place] [id number] Dec, [facility] [id number] [place] [address] [id number] Dec, [facility] [id number] [place] [address] [id number] Dec, Abdominal mass, LLQ (left lower quadrant) R19.04 [facility] [address] [id number] [id number] Nov, Left lower quadrant pain R10.32 ; Abdominal mass, LLQ (left lower quadrant ) R19.04 ; Weight loss R63.4 ; COPD mixed type J44.9 and Hypoxia R09.02 [facility] [id number] [place] [address] [id number] Nov, [facility] [id number] [place] [address] [id number] Nov, COPD exacerbation J44.1 and Hypoxia R09.02 [facility] [id number] [place] [address] [id number] Nov, Hyponatremia E87.1 and COPD mixed type J44.9 [facility] [id number] [place] [address] [id number] Nov, COPD mixed type J44.9 [facility] [address] [place] [address] [id number] Nov, AVEL (obstructive sleep apnea) G47.33 and Hypoxia R09.02 [facility] [id number], [place] [id number] Nov, [facility] [address] [place] [address] [id number] Oct, [facility] [id number] [place] [address] [id number] Oct, COPD mixed type J44.9 ; Hypoxia R09.02 and AVEL (obstructive sleep apnea) G47.33 [facility] [address] [phone] Oct, [facility] [id number], [place] [phone] Aug, [facility] [id number] [place] [address] [id number] Aug, [facility] [id number] [place] [address] [id number] Aug, COPD mixed type J44.9 ; Hypoxia R09.02 ; Edema of lower extremity R60.0 ; Hyponatremia E87.1 and Tobacco abuse counseling Z71.6 [facility] [address] [id number], [place] [id number] Aug, COPD exacerbation J44.1 [facility] [id number] [place] [address] [id number] Aug, [facility] [id number] [place] [address] [id number] Aug, [facility] [id number] [place] [address] [id number] Aug, [facility] [id number] [place] [address] [id number] Aug, COPD mixed type J44.9 and Hypoxia R09.02 [facility] ARMIDA [facility] [place] [id number] [place] [address] Jul [facility] [id number], [place] [phone] Jul, COPD exacerbation J44.1 and Hypoxia R09.02 [facility] Mendoza[address] [facility] [address] [id number][place] [id number] Jul, COPD exacerbation J44.1 and Homeless Z59.0 [facility] [id number], [place] [phone] Jul, COPD exacerbation J44.1 ; Hypoxia R09.02 ; Community acquired pneumonia, unspecified laterality J18.9 ; Tobacco abuse Z72.0 and Tobacco abuse counseling Z71.6 [facility] [id number], [place] [id number] Jun, [facility] [id number] [place] [address] [id number] Jun, Simple chronic bronchitis J41.0 [facility] [id number] [place] [address] [id number] May, [facility] [id number] [place] [address] [id number] May, [facility] [id number] [place] [address] [id number] May, Simple chronic bronchitis J41.0 [facility] [id number] [place] [address] [id number] Apr, Grief reaction F43.20 and Simple chronic bronchitis J41.0 [facility] [id number] [place] [address] [id number] Apr, [facility] [id number] [place] [address] [id number] Mar, COPD exacerbation J44.1 and Simple chronic bronchitis J41.0 [facility] [id number] [place] [address] [id number] Mar, Well woman exam with routine gynecological exam Z01.419 ; Screening breast examination Z12.31 ; Simple chronic bronchitis J41.0 ; Encounter for vaccination Z23 and Encounter for immunization Z23 [facility] [id number] [place] [address] [id number] Mar, Simple chronic bronchitis J41.0 ; Grief reaction F43.20 and COPD exacerbation J44.1 [facility] [id number] [place] [address] [id number] Feb, COPD exacerbation J44.1 [facility] [id number] [place] [address] [id number] Feb, [facility] [id number] [place] [address] [id number] Feb, Simple chronic bronchitis J41.0 [facility] [id number] [place] [address] [id number] January, Simple chronic bronchitis J41.0 ; Grief reaction F43.20 and COPD exacerbation J44.1 [facility] [id number] [place] [address] [id number] January, IMMUNIZATIONS No Known Immunizations SOCIAL HISTORY Never Assessed REASON FOR VISIT Hospital f/u---ER in [place] last week Sunday, was put on O2 as oxygen was 59 at ER, did not wear O2 today as her tank is empty---LISET wang PLAN OF CARE Activity Details Follow Up 4 Weeks, prn Reason:CHM COPD VITAL SIGNS Height 65 in 2017-11-12 Weight 133.2 lbs 2017-11-12 Temperature 97.4 degrees Fahrenheit 2017-11-12 Heart Rate 96 bpm 2017-11-12 Respiratory Rate 20 2017-11-12 BMI 22.16 kg/m2 2017-11-12 Blood pressure systolic 118 mmHg 2017-11-12 Blood pressure diastolic 70 mmHg 2017-11-12 MEDICATIONS Medication Instructions Dosage Frequency Start Date End Date Duration Status Furosemide 20 mg Orally Once a day 1/2 tablet 24h 0 days Active Albuterol Sulfate (2.5 MG/3ML) 0.083% Inhalation Three times a day 3 ml 8h Active Symbicort 160-4.5 MCG/ACT Inhalation Twice a day 2 puffs 12h 12 Feb, 2017 Active Singulair 10 mg Orally Once a day 1 tablet in the evening 24h Mar, Active Spiriva HandiHaler 18 MCG Inhalation Once a day 1 capsule 24h Active ProAir HFA 108 (90 Base) MCG/ACT Inhalation every 4 hrs 2 puffs as needed 4h Active RESULTS No Results PROCEDURES No Known [...]
--- OUTSIDE RECORDS SUMMARY | 2018-08-21 06:31 | XMS REPORT ---
Author Author BOB ALTMAN [facility] Address [address] [place] [address] Care Team Providers Care Refractory Furnace Designer Name Role Phone BOB ALTMAN Unavailable PROBLEMS Type Condition ICD9-CM Code LDU23-OW Code Onset Dates Condition Status SNOMED Code Problem AVEL (obstructive sleep apnea) G47.33 Active 68192022 Problem COPD mixed type J44.9 Active 24307894 Problem Simple chronic bronchitis J41.0 Active 69619126 Problem COPD exacerbation J44.1 Active 008944845 Problem Hypoxia R09.02 Active 000241881 Problem Grief reaction F43.20 Active 73466352 ALLERGIES No Information ENCOUNTERS Encounter Location Date Diagnosis [facility] [address] [address] Apr, [facility] [id number] [place] [address] [id number] Mar, [facility] [address] [address] Mar, [facility] [address] [id number] [id number] Mar, Dental examination Z01.20 [facility] [address] [address] Feb, [facility] [id number] [id number] January, COPD mixed type J44.9 [facility] [id number], [place] [id number] January, [facility] [id number], [place] [id number] January, [facility] [address] [id number], [place] [address] January, [facility] [id number], [place] [id number] Dec, [facility] [id number] [place] [address] [id number] Dec, [facility] [id number], [place] [id number] Dec, Abdominal mass, LLQ (left lower quadrant) R19.04 [facility] [address] [id number] [id number] Nov, Left lower quadrant pain R10.32 ; Abdominal mass, LLQ (left lower quadrant ) R19.04 ; Weight loss R63.4 ; COPD mixed type J44.9 and Hypoxia R09.02 [facility] [id number], [place] [id number] Nov, [facility] [id number] [place] [address] [id number] Nov, COPD exacerbation J44.1 and Hypoxia R09.02 [facility] [id number] [place] [address] [id number] Nov, Hyponatremia E87.1 and COPD mixed type J44.9 [facility] [id number] [place] [address] [id number] Nov, COPD mixed type J44.9 [facility] [address] [id number] Nov, AVEL (obstructive sleep apnea) G47.33 and Hypoxia R09.02 [facility] [id number], [place] [id number] Nov, [facility] [address]00565100[place], [place] [id number] Oct, [facility] [address] [place] [address] [id number] Oct, COPD mixed type J44.9 ; Hypoxia R09.02 and AVEL (obstructive sleep apnea) G47.33 [facility] [address] [id number] Oct, [facility] [id number], [place] [id number] Aug, [facility] [id number] [place] [address] [id number] Aug, [facility] [id number] [place] [address] [id number] Aug, COPD mixed type J44.9 ; Hypoxia R09.02 ; Edema of lower extremity R60.0 ; Hyponatremia E87.1 and Tobacco abuse counseling Z71.6 [facility] [address] [id number], [place] [id number] Aug, COPD exacerbation J44.1 [facility] [id number] [place] [address] [id number] Aug, [facility] [id number] [place] [address] [id number] Aug, [facility] [address] [id number] [place] [address] [id number] Aug, [facility] [id number] [place] [address] [id number] Aug, COPD mixed type J44.9 and Hypoxia R09.02 [facility] ARMIDA [facility] [place] [id number] [place] [address] Jul [facility] [id number], [place] [id number] Jul, COPD exacerbation J44.1 and Hypoxia R09.02 [facility] [address] [facility] [facility] [address] [id number], [place] [id number] Jul, COPD exacerbation J44.1 and Homeless Z59.0 [facility] [id number], [place] [id number] Jul, COPD exacerbation J44.1 ; Hypoxia R09.02 ; Community acquired pneumonia, unspecified laterality J18.9 ; Tobacco abuse Z72.0 and Tobacco abuse counseling Z71.6 [facility] [id number], [place] [id number] Jun, [facility] [id number] [place] [address] [id number] Jun, Simple chronic bronchitis J41.0 [facility] [id number] [place] [address] [id number] May, [facility] [id number] [place] [address] [id number] May, [facility] [id number] [place] [address] [id number] May, Simple chronic bronchitis J41.0 [facility] [id number] [place] [address] [id number] Apr, Grief reaction F43.20 and Simple chronic bronchitis J41.0 [facility] [id number] [place] [address] [id number] Apr, [facility] [id number] [place] [address] [id number] Mar, COPD exacerbation J44.1 and Simple chronic bronchitis J41.0 [facility] [id number] [place] [address] [id number] Mar, Well woman exam with routine gynecological exam Z01.419 ; Screening breast examination Z12.31 ; Simple chronic bronchitis J41.0 ; Encounter for vaccination Z23 and Encounter for immunization Z23 [facility] [id number] [place] [address] [id number] Mar, Simple chronic bronchitis J41.0 ; Grief reaction F43.20 and COPD exacerbation J44.1 [facility] [id number] [place] [address] [id number] Feb, COPD exacerbation J44.1 [facility] [id number] [place] [address] [id number] Feb, [facility] [id number] [place] [address] [id number] Feb, Simple chronic bronchitis J41.0 [facility] [id number] [place] [address] [id number] January, Simple chronic bronchitis J41.0 ; Grief reaction F43.20 and COPD exacerbation J44.1 [facility] [id number] [place] [address] [id number] January, IMMUNIZATIONS No Known Immunizations SOCIAL HISTORY Never Assessed REASON FOR VISIT Work Note PLAN OF CARE VITAL SIGNS MEDICATIONS Unknown [...]
--- OUTSIDE RECORDS SUMMARY | 2018-08-21 06:31 | XMS REPORT ---
Author Author BOB ALTMAN [facility] Address [address] [place] [address] Care Team Providers Care Restaurant Culinary Manager Name Role Phone BOB ALTMAN Unavailable PROBLEMS Type Condition ICD9-CM Code TZT62-EZ Code Onset Dates Condition Status SNOMED Code Problem AVEL (obstructive sleep apnea) G47.33 Active 33170665 Problem COPD mixed type J44.9 Active 78838944 Problem Simple chronic bronchitis J41.0 Active 75265102 Problem COPD exacerbation J44.1 Active 195172906 Problem Hypoxia R09.02 Active 281433592 Problem Grief reaction F43.20 Active 03760493 ALLERGIES No Information ENCOUNTERS Encounter Location Date Diagnosis [facility] [address] [id number] Apr, [facility] [id number] [place] [id number] Mar, [facility] [address] [address] Mar, [facility] [address] [id number] [place] [phone] Mar, Dental examination Z01.20 [facility] [address] [address] Feb, [facility] [id number], [place] [id number] January, COPD mixed type J44.9 [facility] [id number], [place] [phone] January, [facility] [id number], [place] [phone] January, [facility] [address] [id number] [address] January, [facility] [id number], [place] [phone] Dec, [facility] [id number] [place] [address] [phone] Dec, [facility] [id number], [place] [phone] Dec, Abdominal mass, LLQ (left lower quadrant) R19.04 [facility] [address] [id number] [phone] Nov, Left lower quadrant pain R10.32 ; Abdominal mass, LLQ (left lower quadrant ) R19.04 ; Weight loss R63.4 ; COPD mixed type J44.9 and Hypoxia R09.02 [facility] [id number], [place] [id number] Nov, [facility] [id number] [place] [address] [id number] Nov, COPD exacerbation J44.1 and Hypoxia R09.02 [facility] [place] [id number] [place] [address] [id number] Nov, Hyponatremia E87.1 and COPD mixed type J44.9 [facility] [id number] [place] [address] [phone] Nov, COPD mixed type J44.9 [facility] [address]00565100[place] [id number] Nov, AVEL (obstructive sleep apnea) G47.33 and Hypoxia R09.02 [facility] [place] [id number], [place] [phone] Nov, [facility] [address]00565100[place], [place] [phone] Oct, [facility] [address] [place] [address] [phone] Oct, COPD mixed type J44.9 ; Hypoxia R09.02 and AVEL (obstructive sleep apnea) G47.33 [facility] [address]005[address] [phone] Oct, [facility] [place] [id number], [place] [id number] Aug, [facility] [id number] [place] [address] [id number] Aug, [facility] [id number], [place] [phone] Aug, COPD mixed type J44.9 ; Hypoxia R09.02 ; Edema of lower extremity R60.0 ; Hyponatremia E87.1 and Tobacco abuse counseling Z71.6 [facility] [place] [place] [address] [id number], [place] [phone] Aug, COPD exacerbation J44.1 [facility] [id number] [place] [address] [phone] Aug, [facility] [id number], [place] [id number] Aug, [facility] [id number] [place] [address] [id number] Aug, [facility] [id number] [place] [address] [id number] Aug, COPD mixed type J44.9 and Hypoxia R09.02 [facility] ARMIDA [facility] [employer] [id number] [place] [address] Jul [facility] [place] [id number], [place] [id number] Jul, COPD exacerbation J44.1 and Hypoxia R09.02 [facility] [address] [id number] [place] [phone] Jul, COPD exacerbation J44.1 and Homeless Z59.0 [facility] [id number], [place] [phone] Jul, COPD exacerbation J44.1 ; Hypoxia R09.02 ; Community acquired pneumonia, unspecified laterality J18.9 ; Tobacco abuse Z72.0 and Tobacco abuse counseling Z71.6 [facility] [place] [place] [id number], [place] [phone] Jun, Simple chronic bronchitis J41.0 [facility] [id number], [place] [phone] Jun, [facility] [address] [id number], [place] [phone] May, [facility] [id number] [place] [address] [phone] May, [facility] [id number] [place] [address] [phone] May, Simple chronic bronchitis J41.0 [facility] [id number] [place] [address] [phone] Apr, Grief reaction F43.20 and Simple chronic bronchitis J41.0 [facility] [id number] [place] [address] [id number] Apr, [facility] [id number] [place] [address] [phone] Mar, COPD exacerbation J44.1 and Simple chronic bronchitis J41.0 [facility] [id number] [place] [address] [phone] Mar, Well woman exam with routine gynecological exam Z01.419 ; Screening breast examination Z12.31 ; Simple chronic bronchitis J41.0 ; Encounter for vaccination Z23 and Encounter for immunization Z23 [facility] [id number] [place] [address] [id number] Mar, Simple chronic bronchitis J41.0 ; Grief reaction F43.20 and COPD exacerbation J44.1 [facility] [id number], [place] [phone] Feb, COPD exacerbation J44.1 [facility] [id number] [place] [address] [phone] Feb, [facility] [id number], [place] [phone] Feb, Simple chronic bronchitis J41.0 [facility] [id number] [place] [address] [phone] January, Simple chronic bronchitis J41.0 ; Grief reaction F43.20 and COPD exacerbation J44.1 [facility] [id number] [place] [address] [id number] January, IMMUNIZATIONS No Known Immunizations SOCIAL HISTORY Never Assessed REASON FOR VISIT Lab (walk-in) [facility] PLAN OF CARE VITAL SIGNS MEDICATIONS Unknown Medications RESULTS No Results PROCEDURES Procedure Date Ordered Result Body Site ROUTINE VENIPUNCTURE 2017-12-12 N/A COMPLETE CBC W/AUTO DIFF WBC December 12, 2017 COMPREHEN METABOLIC PANEL December 12, 2017 INSTRUCTIONS MEDICATIONS ADMINISTERED No Known Medications MEDICAL (GENERAL) HISTORY Type Description Date Medical History chronic obstructive pulmonary disease (COPD) Medical History chronic bronchitis Medical History 09/05/17 in home sleep study:Obstructive sleep apnea-moderate and nocturnal hypoxemia. Surgical History Blood vessel removal from head 1982 Surgical History tubal ligation Hospitalization History bronchitis
--- OUTSIDE RECORDS SUMMARY | 2018-08-21 06:31 | XMS REPORT ---
Author Author BOB ALTMAN [facility] Address [address] [place] [address] Care Team Providers Care Belly Dump Driver Name Role Phone BOB ALTMAN Unavailable PROBLEMS Type Condition ICD9-CM Code ZCT24-AF Code Onset Dates Condition Status SNOMED Code Problem AVEL (obstructive sleep apnea) G47.33 Active 19468359 Problem COPD mixed type J44.9 Active 68791951 Problem Simple chronic bronchitis J41.0 Active 57189297 Problem COPD exacerbation J44.1 Active 487798108 Problem Hypoxia R09.02 Active 168147669 Problem Grief reaction F43.20 Active 33525010 ALLERGIES No Information ENCOUNTERS Encounter Location Date Diagnosis [facility] [address] [address] [id number] [phone] Mar, [facility] [id number] [place] [address] [phone] Mar, [facility] [id number] [place] [address] [id number]- [address] Mar, [facility] [address] [id number][place] [phone] Mar, Dental examination Z01.20 [facility] [address]00565100[place], [place] [address] Feb, [facility] [id number] [place] [address] [phone] January, COPD mixed type J44.9 [facility] [id number] [place] [address] [phone] January, [facility] [id number], [place] [phone] January, [facility] [address] [id number], [place] [address] January, [facility] [id number] [place] [address] [id number] Dec, [facility] [id number] [place] [address] [id number] Dec, [facility] [id number] [place] [address] [id number] Dec, Abdominal mass, LLQ (left lower quadrant) R19.04 [facility] [id number] [place] [address] [id number] Nov, Left lower quadrant pain R10.32 ; Abdominal mass, LLQ (left lower quadrant ) R19.04 ; Weight loss R63.4 ; COPD mixed type J44.9 and Hypoxia R09.02 [facility] [id number] [place] [address] [id number] Nov, [facility] [id number] [place] [address] [id number] Nov, COPD exacerbation J44.1 and Hypoxia R09.02 [facility] [id number] [place] [address] [id number] Nov, Hyponatremia E87.1 and COPD mixed type J44.9 [facility] [id number] [place] [address] [phone] Nov, COPD mixed type J44.9 [facility] [id number] [place] [address] [phone] Nov, AVEL (obstructive sleep apnea) G47.33 and Hypoxia R09.02 [facility] [id number] [place] [address] [phone] Nov, [facility] [id number] [place] [address] [phone] Oct, [facility] [id number] [place] [address] [id number] Oct, COPD mixed type J44.9 ; Hypoxia R09.02 and AVEL (obstructive sleep apnea) G47.33 [facility] [address]00565100[place] [phone] Oct, [facility] [id number], [place] [phone] Aug, [facility] [id number] [place] [address] [id number] Aug, [facility] [id number] [place] [address] [id number] Aug, COPD mixed type J44.9 ; Hypoxia R09.02 ; Edema of lower extremity R60.0 ; Hyponatremia E87.1 and Tobacco abuse counseling Z71.6 [facility] [id number], [place] [id number] Aug, COPD exacerbation J44.1 [facility] [id number] [place] [address] [id number] Aug, [facility] [id number] [place] [address] [id number] Aug, [facility] [id number] [place] [address] [id number] Aug, [facility] [id number] [place] [address] [id number] Aug, COPD mixed type J44.9 and Hypoxia R09.02 [facility] ARMIDA [address] [place] [address] [id number] [place] [address] Jul [facility] [id number], [place] [phone] Jul, COPD exacerbation J44.1 and Hypoxia R09.02 [facility] [address] [place], [place] [address] [id number], [place] [phone] Jul, COPD exacerbation J44.1 and Homeless Z59.0 [facility] [id number], [place] [id number] Jul, COPD exacerbation J44.1 ; Hypoxia R09.02 ; Community acquired pneumonia, unspecified laterality J18.9 ; Tobacco abuse Z72.0 and Tobacco abuse counseling Z71.6 [facility] [id number], [place] [phone] Jun, [facility] [id number] [place] [address] [phone] Jun, Simple chronic bronchitis J41.0 [facility] [id number], [place] [phone] May, [facility] [id number] [place] [address] [phone] May, [facility] [id number] [place] [address] [id number] May, Simple chronic bronchitis J41.0 [facility] [id number] [place] [address] [id number] Apr, Grief reaction F43.20 and Simple chronic bronchitis J41.0 [facility] [address] [id number] [place] [address] [id number] Apr, [facility] [id number] [place] [address] [id number] Mar, COPD exacerbation J44.1 and Simple chronic bronchitis J41.0 [facility] [id number] [place] [address] [phone] Mar, Well woman exam with routine gynecological exam Z01.419 ; Screening breast examination Z12.31 ; Simple chronic bronchitis J41.0 ; Encounter for vaccination Z23 and Encounter for immunization Z23 [facility] [id number] [place] [address] [id number] Mar, Simple chronic bronchitis J41.0 ; Grief reaction F43.20 and COPD exacerbation J44.1 [facility] [id number] [place] [address] [id number] Feb, COPD exacerbation J44.1 [facility] [id number] [place] [address] [id number] Feb, [facility] [id number] [place] [address] [id number] Feb, Simple chronic bronchitis J41.0 [facility] [id number] [place] [address] [id number] January, Simple chronic bronchitis J41.0 ; Grief reaction F43.20 and COPD exacerbation J44.1 [facility] [id number] [place] [address] [phone] January, IMMUNIZATIONS No Known Immunizations SOCIAL HISTORY [...]
--- OUTSIDE RECORDS SUMMARY | 2018-08-21 06:31 | XMS REPORT ---
Author Author BOB ALTMAN [facility] Address [address] [place] [address] Care Team Providers Care Equipment Sales Specialist Name Role Phone BOB ALTMAN Unavailable PROBLEMS Type Condition ICD9-CM Code EXS04-RB Code Onset Dates Condition Status SNOMED Code Problem AVEL (obstructive sleep apnea) G47.33 Active 84104154 Problem COPD mixed type J44.9 Active 59352905 Problem Simple chronic bronchitis J41.0 Active 41994100 Problem COPD exacerbation J44.1 Active 684274043 Problem Hypoxia R09.02 Active 666103827 Problem Grief reaction F43.20 Active 67790831 ALLERGIES No Information ENCOUNTERS Encounter Location Date Diagnosis [facility] [address]00565100[place], [place] [address] Apr, [facility] [id number] [place] [address] [phone] Mar, [facility] [address]00565100[place], [place] 6228[address]22- [address] Mar, [facility] [address] [id number], [place] [id number] Mar, Dental examination Z01.20 [facility] [address]005[address]100[place], [place] 440[address]90- [address] Feb, [facility] [id number], [place] [id number] January, COPD mixed type J44.9 [facility] [id number], [place] [phone] January, [facility] [id number], [place] [phone] January, [facility] [address] [id number], [place] [address]- [address] January, [facility] [id number], [place] [phone] Dec, [facility] [id number] [place] [address] [phone] Dec, [facility] [id number], [place] [phone] Dec, Abdominal mass, LLQ (left lower quadrant) R19.04 [facility] [address] [id number], [place] [phone] Nov, Left lower quadrant pain R10.32 ; Abdominal mass, LLQ (left lower quadrant ) R19.04 ; Weight loss R63.4 ; COPD mixed type J44.9 and Hypoxia R09.02 [facility] [id number], [place] [id number] Nov, [facility] [id number] [place] [address] [id number] Nov, COPD exacerbation J44.1 and Hypoxia R09.02 [facility] [place] [id number] [place] [address] [id number] Nov, Hyponatremia E87.1 and COPD mixed type J44.9 [facility] [place] [id number] [place] [address] [id number] Nov, COPD mixed type J44.9 [facility] [address]00565100[place], [place] [id number] Nov, AVEL (obstructive sleep apnea) G47.33 and Hypoxia R09.02 [facility] [place] [id number], [place] [id number] Nov, [facility] [place] [address]00565100[place], [place] [id number] Oct, [facility] [id number] [place] [address] [phone] Oct, COPD mixed type J44.9 ; Hypoxia R09.02 and AVEL (obstructive sleep apnea) G47.33 [facility] [address]00565100[place], [place] [phone] Oct, [facility] [place] [id number], [place] [phone] Aug, [facility] [place] [id number] [place] [address] [id number] Aug, [facility] [place] [id number], [place] [phone] Aug, COPD mixed type J44.9 ; Hypoxia R09.02 ; Edema of lower extremity R60.0 ; Hyponatremia E87.1 and Tobacco abuse counseling Z71.6 [facility] [place] [address] [id number], [place] [id number] Aug, COPD exacerbation J44.1 [facility] [place] [id number] [place] [address] [id number] Aug, [facility] [place] [id number], [place] [id number] Aug, [facility] [place] [id number] [place] [address] [id number] Aug, [facility] [place] [id number] [place] [address] [id number] Aug, COPD mixed type J44.9 and Hypoxia R09.02 [facility] ARMIDA [facility] [employer] [id number] [place] [address] Jul [facility] [place] [id number], [place] [id number] Jul, COPD exacerbation J44.1 and Hypoxia R09.02 [facility] [address] [id number], [place] [phone] Jul, COPD exacerbation J44.1 and Homeless Z59.0 [facility] [place] [id number], [place] [id number] Jul, COPD exacerbation J44.1 ; Hypoxia R09.02 ; Community acquired pneumonia, unspecified laterality J18.9 ; Tobacco abuse Z72.0 and Tobacco abuse counseling Z71.6 [facility] [place] [id number], [place] [id number] Jun, Simple chronic bronchitis J41.0 [facility] [id number], [place] [phone] Jun, [facility] [address] [id number], [place] [phone] May, [facility] [id number] [place] [address] [id number] May, [facility] [id number] [place] [address] [id number] May, Simple chronic bronchitis J41.0 [facility] [address] [id number] [place] [address] [phone] Apr, Grief reaction F43.20 and Simple chronic bronchitis J41.0 [facility] [id number] [place] [address] [id number] Apr, [facility] [id number] [place] [address] [id number] Mar, COPD exacerbation J44.1 and Simple chronic bronchitis J41.0 [facility] [id number] [place] [address] [id number] Mar, Well woman exam with routine gynecological exam Z01.419 ; Screening breast examination Z12.31 ; Simple chronic bronchitis J41.0 ; Encounter for vaccination Z23 and Encounter for immunization Z23 [facility] [id number] [place] [address] [id number] Mar, Simple chronic bronchitis J41.0 ; Grief reaction F43.20 and COPD exacerbation J44.1 [facility] [id number] [id number] Feb, COPD exacerbation J44.1 [facility] [id number] [place] [address] [id number] Feb, [facility] [id number] [phone] Feb, Simple chronic bronchitis J41.0 [facility] [id number] [place] [address] [id number] January, Simple chronic bronchitis J41.0 ; Grief reaction F43.20 and COPD exacerbation J44.1 [facility] [id number] [place] [address] [id number] January, IMMUNIZATIONS No Known Immunizations SOCIAL HISTORY Never Assessed REASON FOR VISIT PALS PLAN OF CARE VITAL SIGNS MEDICATIONS Medication Instructions Dosage Frequency Start Date End Date Duration Status Spiriva HandiHaler 18 MCG Inhalation Once a day 1 capsule 24h Active RESULTS No Results PROCEDURES No Known [...]
--- OUTSIDE RECORDS SUMMARY | 2018-08-21 06:31 | XMS REPORT ---
Author Author BOB ALTMAN [facility] Address [address] [place] [address] Care Team Providers Care Drug Enforcement Administration Agent Name Role Phone BOB ALTMAN Unavailable PROBLEMS Type Condition ICD9-CM Code WSU04-JM Code Onset Dates Condition Status SNOMED Code Problem AVEL (obstructive sleep apnea) G47.33 Active 76361842 Problem COPD mixed type J44.9 Active 54160060 Problem Simple chronic bronchitis J41.0 Active 09110279 Problem COPD exacerbation J44.1 Active 650050249 Problem Hypoxia R09.02 Active 830111800 Problem Grief reaction F43.20 Active [id number] ALLERGIES No Information ENCOUNTERS Encounter Location Date Diagnosis [facility] [place] [address] [address] Apr, [facility] [id number] [place] [address] [id number] Mar, [facility] [place] [address], [place] [address] Mar, [facility] [address] [id number] [phone] Mar, Dental examination Z01.20 [facility] [place] [address], [place] [address] Feb, [facility] [id number], [place] [id number] January, COPD mixed type J44.9 [facility] [id number], [place] [id number] January, [facility] [id number], [place] [id number] January, [facility] [place] [address] [id number], [place] [address] January, [facility] [id number], [place] [id number] Dec, [facility] [id number] [place] [address] [phone] Dec, [facility] [id number], [place] [id number] Dec, Abdominal mass, LLQ (left lower quadrant) R19.04 [facility] [address] [id number] [phone] Nov, Left lower quadrant pain R10.32 ; Abdominal mass, LLQ (left lower quadrant ) R19.04 ; Weight loss R63.4 ; COPD mixed type J44.9 and Hypoxia R09.02 [facility] [id number], [place] [id number] Nov, [facility] [id number] [place] [address] [phone] Nov, COPD exacerbation J44.1 and Hypoxia R09.02 [facility] [id number] [place] [address] [id number] Nov, Hyponatremia E87.1 and COPD mixed type J44.9 [facility] [id number] [place] [address] [id number] Nov, COPD mixed type J44.9 [facility] [address]00565100[place], [place] [phone] Nov, AVEL (obstructive sleep apnea) G47.33 and Hypoxia R09.02 [facility] [id number], [place] [phone] Nov, [facility] [address]00565100[place], [place] [phone] Oct, [facility] [address] [place] [address] [phone] Oct, COPD mixed type J44.9 ; Hypoxia R09.02 and AVEL (obstructive sleep apnea) G47.33 [facility] [address]00565100[place] [phone] Oct, [facility] [id number], [place] [phone] Aug, [facility] [id number] [place] [address] [id number] Aug, [facility] [address] [id number] [place] [address] [id number] Aug, COPD mixed type J44.9 ; Hypoxia R09.02 ; Edema of lower extremity R60.0 ; Hyponatremia E87.1 and Tobacco abuse counseling Z71.6 [facility] [address] [id number], [place] [id number] Aug, COPD exacerbation J44.1 [facility] [id number] [place] [address] [id number] Aug, [facility] [address] [id number] [place] [address] [phone] Aug, [facility] [id number] [place] [address] [phone] Aug, [facility] [id number] [place] [address] [phone] Aug, COPD mixed type J44.9 and Hypoxia R09.02 [facility] [place]ERCE [id number] [place] [address] Jul [facility] [id number], [place] [id number] Jul, COPD exacerbation J44.1 and Hypoxia R09.02 [facility] [address] [facility] [address] [id number], [place] [id number] Jul, COPD exacerbation J44.1 and Homeless Z59.0 [facility] [place] [id number], [place] [id number] Jul, COPD exacerbation J44.1 ; Hypoxia R09.02 ; Community acquired pneumonia, unspecified laterality J18.9 ; Tobacco abuse Z72.0 and Tobacco abuse counseling Z71.6 [facility] [id number], [place] [phone] Jun, [facility] [id number] [place] [address] [id number] Jun, Simple chronic bronchitis J41.0 [facility] [id number] [place] [address] [id number] May, [facility] [address] [id number] [place] [address] [id number] May, [facility] [id number] [place] [address] [id number] May, Simple chronic bronchitis J41.0 [facility] [address] [id number] [place] [address] [id number] Apr, Grief reaction F43.20 and Simple chronic bronchitis J41.0 [facility] [id number] [place] [address] [phone] Apr, [facility] [id number] [place] [address] [id number] Mar, COPD exacerbation J44.1 and Simple chronic bronchitis J41.0 [facility] [id number] [place] [address] [phone] Mar, Well woman exam with routine gynecological exam Z01.419 ; Screening breast examination Z12.31 ; Simple chronic bronchitis J41.0 ; Encounter for vaccination Z23 and Encounter for immunization Z23 [facility] [id number] [place] [address] [id number] Mar, Simple chronic bronchitis J41.0 ; Grief reaction F43.20 and COPD exacerbation J44.1 [facility] [id number] [place] [address] [id number] Feb, COPD exacerbation J44.1 [facility] [id number] [place] [address] [id number] Feb, [facility] [id number] [place] [address] [id number] Feb, Simple chronic bronchitis J41.0 [facility] [id number] [place] [address] [phone] January, Simple chronic bronchitis J41.0 ; Grief reaction F43.20 and COPD exacerbation J44.1 [facility] [id number] [place] [address] [phone] January, IMMUNIZATIONS No Known Immunizations SOCIAL HISTORY Never Assessed REASON FOR VISIT Medication refill request PLAN OF CARE VITAL SIGNS MEDICATIONS Medication Instructions Dosage Frequency Start Date End Date Duration Status PredniSONE 10 mg Orally Once a day 4 tablets for 3 days, 3 tabs for 3 days, 2 tabs for 3 days, and 1 tab for 3 days 24h Nov, Dec, 12 days Active Doxycycline Hyclate 100 mg Orally every 12 hrs 1 capsule 12h Nov, Dec, 14 days Active RESULTS No Results PROCEDURES No [...]
--- OUTSIDE RECORDS SUMMARY | 2018-08-21 06:32 | XMS REPORT ---
Author Author BOB ALTMAN Organization [facility] Address [address] [place] [address] Care Team Providers Care Electrolysis Engineer Name Role Phone BOB ALTMAN Unavailable PROBLEMS Type Condition ICD9-CM Code UZO59-IN Code Onset Dates Condition Status SNOMED Code Problem AVEL (obstructive sleep apnea) G47.33 Active 97245991 Problem COPD mixed type J44.9 Active 58202044 Problem Simple chronic bronchitis J41.0 Active 43846999 Problem COPD exacerbation J44.1 Active 992775845 Problem Hypoxia R09.02 Active 423685439 Problem Grief reaction F43.20 Active 55100994 ALLERGIES No Information ENCOUNTERS Encounter Location Date [facility] [address] [id number] [phone] Feb, [facility] [id number] [place] [address] [phone] Feb, [facility] [id number] [place] [address] [phone] January, COPD mixed type J44.9 [facility] [id number], [place] [id number] January, [facility] [id number] [place] [address] [phone] January, [facility] [address]00565100[place], [place] [address]44[address] January, [facility] [id number] [place] [address] [phone] Dec, [facility] [id number], [place] [phone] Dec, [facility] [id number] [place] [address] [id number] Dec, Abdominal mass, LLQ (left lower quadrant) R19.04 [facility] [place] [id number] [place] [address] [phone] Nov, Left lower quadrant pain R10.32 ; Abdominal mass, LLQ (left lower quadrant ) R19.04 and Weight loss R63.4 [facility] [id number] [place] [address] [phone] Nov, [facility] [address] [place] [address] [id number] Nov, COPD exacerbation J44.1 and Hypoxia R09.02 [facility] [id number] [place] [address] [id number] Nov, Hyponatremia E87.1 and COPD mixed type J44.9 [facility] [id number] [place] [address] [id number] Nov, COPD mixed type J44.9 [facility] [place] [id number] [place] [address] [id number] Nov, AVEL (obstructive sleep apnea) G47.33 and Hypoxia R09.02 [facility] [place] [id number] [place] [address] [id number] Nov, [facility] [id number] [place] [address] [id number] Oct, [facility] [id number] [place] [address] [id number] Oct, COPD mixed type J44.9 ; Hypoxia R09.02 and AVEL (obstructive sleep apnea) G47.33 [facility] [address] [id number], [place] [phone] Oct, [facility] [address] [place] [address] [phone] Aug, [facility] [id number] [place] [address] [id number] Aug, [facility] [id number] [place] [address] [id number] Aug, COPD mixed type J44.9 ; Hypoxia R09.02 ; Edema of lower extremity R60.0 ; Hyponatremia E87.1 and Tobacco abuse counseling Z71.6 [facility] [address] [id number], [place] [phone] Aug, COPD exacerbation J44.1 [facility] [address] [id number], [place] [phone] Aug, [facility] [address] [id number], [place] [id number] Aug, [facility] [id number] [place] [address] [phone] Aug, [facility] [id number] [place] [address] [id number] Aug, COPD mixed type J44.9 and Hypoxia R09.02 [facility] [address] [id number] [place] [address] Jul [facility] [id number] [place] [address] [id number] Jul, COPD exacerbation J44.[address] [facility] [id number], [place] [id number] Jul, COPD exacerbation J44.1 and Homeless Z59.0 [place] [id number] [place] [address] [id number] Jul, COPD exacerbation J44.1 ; Hypoxia R09.02 ; Community acquired pneumonia, unspecified laterality J18.9 ; Tobacco abuse Z72.0 and Tobacco abuse counseling Z71.6 [facility] [address] [id number], [place] [phone] Jun, [facility] [address] [id number], [place] [phone] Jun, Simple chronic bronchitis J41.0 [facility] [id number] [place] [address] [id number] May, [facility] [id number] [place] [address] [id number] May, [facility] [address] [id number], [place] [phone] May, Simple chronic bronchitis J41.0 [facility] [id number] [place] [address] [id number] Apr, Grief reaction F43.20 and Simple chronic bronchitis J41.0 [facility] [id number] [place] [address] [id number] Apr, [facility] [id number] [place] [address] [id number] Mar, COPD exacerbation J44.1 and Simple chronic bronchitis J41.0 [facility] [id number] [place] [address] [id number] Mar, Well woman exam with routine gynecological exam Z01.419 ; Screening breast examination Z12.31 ; Simple chronic bronchitis J41.0 ; Encounter for vaccination Z23 and Encounter for immunization Z23 [facility] [id number] [place] [address] [id number] Mar, Simple chronic bronchitis J41.0 ; Grief reaction F43.20 and COPD exacerbation J44.1 [facility] [id number] [place] [address] [id number] Feb, COPD exacerbation J44.1 [facility] [id number] [place] [address] [id number] Feb, [facility] [id number] [place] [address] [id number] Feb, Simple chronic bronchitis J41.0 [facility] [id number] [place] [address] [id number] January, Simple chronic bronchitis J41.0 ; Grief reaction F43.20 and COPD exacerbation J44.1 [facility] [id number] [place] [address] [id number] January, IMMUNIZATIONS No Known Immunizations SOCIAL HISTORY Never Assessed REASON FOR VISIT PALS PLAN OF CARE VITAL SIGNS MEDICATIONS Medication Instructions Dosage Frequency Start Date End Date Duration Status Singulair 10 mg Orally Once a day 1 tablet in the evening 24h Mar, Active RESULTS No Results PROCEDURES No Known [...]
--- OUTSIDE RECORDS SUMMARY | 2018-08-21 06:32 | XMS REPORT ---
Author Author BOB ALTMAN [facility] Address [address] [place] [address] Care Team Providers Care Perforator Typist Name Role Phone BOB ALTMAN Unavailable PROBLEMS Type Condition ICD9-CM Code TDZ53-LW Code Onset Dates Condition Status SNOMED Code Problem AVEL (obstructive sleep apnea) G47.33 Active 68290577 Problem COPD mixed type J44.9 Active 21016552 Problem Simple chronic bronchitis J41.0 Active 81521755 Problem COPD exacerbation J44.1 Active 773265834 Problem Hypoxia R09.02 Active 454625086 Problem Grief reaction F43.20 Active 78957125 ALLERGIES No Information ENCOUNTERS Encounter Location Date Diagnosis [facility] [address]00565100[place] [address]248[address] Apr, [facility] [id number] [place] [address] [id number] Mar, [facility] [address]00565100[place], [place] [address] Mar, [facility] [address] [id number] [phone] Mar, Dental examination Z01.20 [facility] [address]00565100[place], [place] 23711625- [address] Feb, [facility] [id number], [place] [id number] January, COPD mixed type J44.9 [facility] [id number], [place] [id number] January, [facility] [id number], [place] [id number] January, [facility] [address] 3298165100[place] [address]- [address] January, [facility] [id number], [place] [id number] Dec, [facility] [id number] [place] [address] [phone] Dec, [facility] [id number], [place] [id number] Dec, Abdominal mass, LLQ (left lower quadrant) R19.04 [facility] [address] [id number], [place] [phone] Nov, Left lower quadrant pain R10.32 ; Abdominal mass, LLQ (left lower quadrant ) R19.04 ; Weight loss R63.4 ; COPD mixed type J44.9 and Hypoxia R09.02 [facility] [id number], [place] [id number] Nov, [facility] [id number] [place] [address] [id number] Nov, COPD exacerbation J44.1 and Hypoxia R09.02 [facility] [id number] [place] [address] [id number] Nov, Hyponatremia E87.1 and COPD mixed type J44.9 [facility] [id number] [place] [address] [id number] Nov, COPD mixed type J44.9 [facility] [address]00565100[place], [place] [phone] Nov, AVEL (obstructive sleep apnea) G47.33 and Hypoxia R09.02 [facility] [id number], [place] [id number] Nov, [facility] [place] [address]00565100[place], [place] [phone] Oct, [facility] [address] [place] [address] [id number] Oct, COPD mixed type J44.9 ; Hypoxia R09.02 and AVEL (obstructive sleep apnea) G47.33 [facility] [address]00565100[place] [phone] Oct, [facility] [id number], [place] [id number] Aug, [facility] [id number] [place] [address] [id number] Aug, [facility] [id number] [place] [address] [id number] Aug, COPD mixed type J44.9 ; Hypoxia R09.02 ; Edema of lower extremity R60.0 ; Hyponatremia E87.1 and Tobacco abuse counseling Z71.6 [facility] [address] [id number], [place] [id number] Aug, COPD exacerbation J44.1 [facility] [address] [id number] [place] [address] [id number] Aug, [facility] [address] [id number] [place] [address] [id number] Aug, [facility] [address] [id number] [place] [address] [id number] Aug, [facility] [id number] [place] [address] [phone] Aug, COPD mixed type J44.9 and Hypoxia R09.02 [facility] ARMIDA [facility] [address] [id number] [place] [address] Jul [facility] [id number], [place] [id number] Jul, COPD exacerbation J44.1 and Hypoxia R09.02 [facility] [address] [facility] [id number], [place] [phone] Jul, COPD exacerbation J44.1 and Homeless Z59.0 [facility] [id number], [place] [id number] Jul, COPD exacerbation J44.1 ; Hypoxia R09.02 ; Community acquired pneumonia, unspecified laterality J18.9 ; Tobacco abuse Z72.0 and Tobacco abuse counseling Z71.6 [facility] [id number], [place] [phone] Jun, [facility] [id number] [place] [address] [id number] Jun, Simple chronic bronchitis J41.0 [facility] [id number] [place] [address] [id number] May, [facility] [address] [place] [id number] [place] [address] [id number] May, [facility] [id number] [place] [address] [id number] May, Simple chronic bronchitis J41.0 [facility] [address] [place] [id number] [place] [address] [phone] Apr, Grief reaction F43.20 and Simple chronic bronchitis J41.0 [facility] [id number] [place] [address] [id number] Apr, [facility] [id number] [place] [address] [id number] Mar, COPD exacerbation J44.1 and Simple chronic bronchitis J41.0 [facility] [id number] [place] [address] [id number] Mar, Well woman exam with routine gynecological exam Z01.419 ; Screening breast examination Z12.31 ; Simple chronic bronchitis J41.0 ; Encounter for vaccination Z23 and Encounter for immunization Z23 [facility] [id number] [place] [address] [id number] Mar, Simple chronic bronchitis J41.0 ; Grief reaction F43.20 and COPD exacerbation J44.1 [facility] [id number] [place] [address] [id number] Feb, COPD exacerbation J44.1 [facility] [id number] [place] [address] [id number] Feb, [facility] [id number] [place] [address] [id number] Feb, Simple chronic bronchitis J41.0 [facility] [id number] [place] [address] [id number] January, Simple chronic bronchitis J41.0 ; Grief reaction F43.20 and COPD exacerbation J44.1 [facility] [id number] [place] [address] [id number] January, IMMUNIZATIONS No Known Immunizations SOCIAL HISTORY [...]
--- OUTSIDE RECORDS SUMMARY | 2018-08-21 06:32 | XMS REPORT ---
Author Author Twila Escalera Organization [employer] Address Unknown Phone Unavailable Care Team Providers [employer] Name Role Phone Twila Escalera Unavailable Allergies No Known Allergies Problems Problem Type Condition ICD-9 Code Onset Dates Condition Status Assessment URI, acute (common cold) 460 Active Medications Medication Code System Code Instructions Start Date End Date Status Dosage Flonase [facility] 1841 50 mcg/inh intranasally once a day May 29, 2014 2 spray(s) Results No Known Results Summary Purpose [employer] Submission
--- OUTSIDE RECORDS SUMMARY | 2018-08-21 06:32 | XMS REPORT ---
Author Author BOB ALTMAN Organization [facility] Address [address] [place] [address] Care Team Providers Care Admittance Attendant Name Role Phone BOB ALTMAN Unavailable PROBLEMS Type Condition ICD9-CM Code CVQ20-AS Code Onset Dates Condition Status SNOMED Code Problem AVEL (obstructive sleep apnea) G47.33 Active 60498213 Problem COPD mixed type J44.9 Active 93704666 Problem Simple chronic bronchitis J41.0 Active 98460929 Problem COPD exacerbation J44.1 Active 405772335 Problem Hypoxia R09.02 Active 014750192 Problem Grief reaction F43.20 Active 27962087 ALLERGIES No Information ENCOUNTERS Encounter Location Date Diagnosis [facility] [address] [id number] [id number] [id number] Feb, [facility] [id number] [place] [address] [id number] Feb, [facility] [id number] [place] [address] [id number] January, COPD mixed type J44.9 [facility] [id number] [phone] January, [facility] [id number] [place] [address] [id number] January, [facility] [address]005[address] [id number] January, [facility] [id number] [place] [address] [id number] Dec, [facility] [id number], [place] [id number] Dec, [facility] [id number] [place] [address] [id number] Dec, Abdominal mass, LLQ (left lower quadrant) R19.04 [facility] [place] [id number] [place] [address] [id number] Nov, Left lower quadrant pain R10.32 ; Abdominal mass, LLQ (left lower quadrant ) R19.04 and Weight loss R63.4 [facility] [id number] [place] [address] [id number] Nov, [facility] [place] [facility] [address] [place] [address] [id number] Nov, COPD exacerbation J44.1 and Hypoxia R09.02 [facility] [place] [facility] [id number] [place] [address] [id number] Nov, Hyponatremia E87.1 and COPD mixed type J44.9 [facility] [place] [id number] [place] [address] [id number] Nov, COPD mixed type J44.9 [facility] [place] [id number] [place] [address] [id number] Nov, AVEL (obstructive sleep apnea) G47.33 and Hypoxia R09.02 [facility] [place] [id number] [place] [address] [id number] Nov, [facility] [place] [id number] [place] [address] [id number] Oct, [facility] [place] [facility] [id number] [place] [address] [id number] Oct, COPD mixed type J44.9 ; Hypoxia R09.02 and AVEL (obstructive sleep apnea) G47.33 [facility] [address] [id number] [phone] Oct, [facility] [place] [facility] [address] [place] [address] [id number] Aug, [facility] [id number] [place] [address] [id number] Aug, [facility] [place] [id number] [place] [address] [id number] Aug, COPD mixed type J44.9 ; Hypoxia R09.02 ; Edema of lower extremity R60.0 ; Hyponatremia E87.1 and Tobacco abuse counseling Z71.6 [facility] [place] [address] [id number][place] [phone] Aug, COPD exacerbation J44.1 [facility] [place] [address] [id number], [place] [id number] Aug, [facility] [place] [address] [id number], [place] [phone] Aug, [facility] [place] [address] [id number] [place] [address] [id number] Aug, [facility] [place] [address] [id number] [place] [address] [id number] Aug, COPD mixed type J44.9 and Hypoxia R09.02 [facility] [place] [facility] [address] [id number] [place] [address] Jul [facility] [place] [id number] [place] [address] [id number] Jul, COPD exacerbation J44.1 and Hypoxia R09.02 [facility] [address] [id number][place] [id number] Jul, COPD exacerbation J44.1 and Homeless Z59.0 [place] [id number] [place] [address] [id number] Jul, COPD exacerbation J44.1 ; Hypoxia R09.02 ; Community acquired pneumonia, unspecified laterality J18.9 ; Tobacco abuse Z72.0 and Tobacco abuse counseling Z71.6 [facility] [place] [address] [id number], [place] [id number] Jun, [facility] [place] [address] [id number], [place] [phone] Jun, Simple chronic bronchitis J41.0 [facility] [place] [address] [id number] [place] [address] [id number] May, [facility] [place] [address] [id number] [place] [address] [id number] May, [facility] [place] [address] [id number], [place] [phone] May, Simple chronic bronchitis J41.0 [facility] [place] [address] [id number] [place] [address] [id number] Apr, Grief reaction F43.20 and Simple chronic bronchitis J41.0 [facility] [id number] [place] [address] [id number] Apr, [facility] [id number] [place] [address] [id number] Mar, COPD exacerbation J44.1 and Simple chronic bronchitis J41.0 [facility] [id number] [place] [address] [id number] Mar, Well woman exam with routine gynecological exam Z01.419 ; Screening breast examination Z12.31 ; Simple chronic bronchitis J41.0 ; Encounter for vaccination Z23 and Encounter for immunization Z23 [facility] [id number] [place] [address] [id number] Mar, Simple chronic bronchitis J41.0 ; Grief reaction F43.20 and COPD exacerbation J44.1 [facility] [id number] [place] [address] [id number] Feb, COPD exacerbation J44.1 [facility] [id number] [place] [address] [id number] Feb, [facility] [id number] [place] [address] [id number] Feb, Simple chronic bronchitis J41.0 [facility] [id number] [place] [address] [id number] January, Simple chronic bronchitis J41.0 ; Grief reaction F43.20 and COPD exacerbation J44.1 [facility] [id number] [place] [address] [id number] January, IMMUNIZATIONS No Known Immunizations SOCIAL HISTORY [...]
--- OUTSIDE RECORDS SUMMARY | 2018-08-21 06:32 | XMS REPORT ---
Author Author BOB ALTMAN Organization [facility] Address [address] [place] [address] Care Team Providers Care Inseminator Name Role Phone BOB ALTMAN Unavailable PROBLEMS Type Condition ICD9-CM Code LHK09-PB Code Onset Dates Condition Status SNOMED Code Problem AVEL (obstructive sleep apnea) G47.33 Active 13687368 Problem COPD mixed type J44.9 Active 05134930 Problem Simple chronic bronchitis J41.0 Active 81884058 Problem COPD exacerbation J44.1 Active 310371797 Problem Hypoxia R09.02 Active 944578187 Problem Grief reaction F43.20 Active 70975656 ALLERGIES No Information ENCOUNTERS Encounter Location Date Diagnosis [facility] [id number] [place] [address] [id number] Nov, [place] [address] [id number] Nov, Hyponatremia E87.1 and COPD mixed type J44.9 [facility] [address] [id number] Nov, COPD mixed type J44.9 [place] [id number] [place] [address] [id number] Nov, AVEL (obstructive sleep apnea) G47.33 and Hypoxia R09.02 [facility] [id number] [place] [address] [id number] Nov, [place] [id number] [place] [address] [id number] Oct, [address] [id number] Oct, COPD mixed type J44.9 ; Hypoxia R09.02 and AVEL (obstructive sleep apnea) G47.33 [facility] [address] [id number][place] [phone] Oct, [facility] [address] [id number], [place] [id number] Aug, [facility] [address] [id number], [place] [id number] Aug, [facility] [address] [id number], [place] [phone] Aug, COPD mixed type J44.9 ; Hypoxia R09.02 ; Edema of lower extremity R60.0 ; Hyponatremia E87.1 and Tobacco abuse counseling Z71.6 [facility] [place] [id number], [place] [id number] Aug, COPD exacerbation J44.1 [facility] [address] [id number], [place] [phone] Aug, [facility] [id number], [place] [phone] Aug, [facility] [id number] [place] [address] [id number] Aug, [facility] [id number], [place] [phone] Aug, COPD mixed type J44.9 and Hypoxia R09.02 [facility] [address] [place] [address] [id number] [place] [address] Jul [facility] [id number], [place] [phone] Jul, COPD exacerbation J44.1 and Hypoxia R09.02 [facility] [address] [facility] [id number], [place] [phone] Jul, COPD exacerbation J44.1 and Homeless Z59.0 [facility] [id number], [place] [id number] Jul, COPD exacerbation J44.1 ; Hypoxia R09.02 ; Community acquired pneumonia, unspecified laterality J18.9 ; Tobacco abuse Z72.0 and Tobacco abuse counseling Z71.6 [facility] [id number], [place] [phone] Jun, [facility] [address] [id number], [place] [phone] Jun, Simple chronic bronchitis J41.0 [facility] [id number] [place] [address] [id number] May, [facility] [id number] [place] [address] [id number] May, [facility] [id number] [place] [address] [id number] May, Simple chronic bronchitis J41.0 [facility] [id number] [place] [address] [id number] Apr, Grief reaction F43.20 and Simple chronic bronchitis J41.0 [facility] [id number] [place] [address] [id number] Apr, [facility] [id number] [place] [address] [id number] Mar, COPD exacerbation J44.1 and Simple chronic bronchitis J41.0 [facility] [id number], [place] [id number] Mar, Well woman exam with routine gynecological exam Z01.419 ; Screening breast examination Z12.31 ; Simple chronic bronchitis J41.0 ; Encounter for vaccination Z23 and Encounter for immunization Z23 [facility] [id number], [place] [id number] Mar, Simple chronic bronchitis J41.0 ; Grief reaction F43.20 and COPD exacerbation J44.1 [facility] [address] [id number], [place] [id number] Feb, COPD exacerbation J44.1 [facility] [address] [id number], [place] [id number] Feb, [facility] [address] [id number], [place] [id number] Feb, Simple chronic bronchitis J41.0 [facility] [id number] [place] [address] [id number] January, Simple chronic bronchitis J41.0 ; Grief reaction F43.20 and COPD exacerbation J44.1 [facility] [address] [address] [id number] [place] [address] [place] [phone] January, IMMUNIZATIONS No Known Immunizations SOCIAL HISTORY Never Assessed REASON FOR VISIT RX refill request PLAN OF CARE VITAL SIGNS MEDICATIONS Medication Instructions Dosage Frequency Start Date End Date Duration Status Symbicort 160-4.5 MCG/ACT Inhalation Twice a day 2 puffs 12h 12 Feb, 2017 Active ProAir HFA 108 (90 Base) MCG/ACT Inhalation every 4 hrs 2 puffs as needed 4h January, 0 days Active RESULTS No Results PROCEDURES [...]
--- OUTSIDE RECORDS SUMMARY | 2018-08-21 06:33 | XMS REPORT ---
Author Author BOB ALTMAN Organization [facility] Address [address] [place] [address] Care Team Providers Care Statistical Developer Name Role Phone BOB ALTMAN Unavailable PROBLEMS Type Condition ICD9-CM Code OHY21-BQ Code Onset Dates Condition Status SNOMED Code Problem AVEL (obstructive sleep apnea) G47.33 Active 38872341 Problem COPD mixed type J44.9 Active 96493160 Problem Simple chronic bronchitis J41.0 Active 41322911 Problem COPD exacerbation J44.1 Active 545688626 Problem Hypoxia R09.02 Active 318824780 Problem Grief reaction F43.20 Active 33883038 ALLERGIES No Information ENCOUNTERS Encounter Location Date Diagnosis [facility] [id number] [place] [address] [id number] Nov, COPD mixed type J44.9 [place] [id number] [place] [address] [id number] Nov, AVEL (obstructive sleep apnea) G47.33 and Hypoxia R09.02 [place] [id number] [place] [address] [id number] Nov, [place] [id number] [place] [address] [id number] Oct, [facility] [id number] [place] [address] [id number] Oct, COPD mixed type J44.9 ; Hypoxia R09.02 and AVEL (obstructive sleep apnea) G47.33 [place] [address] [facility] [address] [id number], [place] [id number] Oct, [address] [place] [address] [id number] Aug, [place] [id number] [place] [address] [id number] Aug, [facility] [place] [address] [id number] CITY[place] [id number] Aug, COPD mixed type J44.9 ; Hypoxia R09.02 ; Edema of lower extremity R60.0 ; Hyponatremia E87.1 and Tobacco abuse counseling Z71.6 [facility] [place] [address] [id number] [place] [id number] Aug, COPD exacerbation J44.1 [facility] [place] [id number] [place] [address] [id number] Aug, [facility] [address] [id number] CITY, [place] [id number] Aug, [facility] [id number] [place] [address] [id number] Aug, [facility] [place] [id number] [place], [place] [id number] Aug, COPD mixed type J44.9 and Hypoxia R09.02 [facility] [address] [id number] [place] [address] Jul [facility] [place] [id number] CITY, [place] [id number] Jul, COPD exacerbation J44.1 and Hypoxia R09.02 [facility] [id number][place] [id number] Jul, COPD exacerbation J44.1 and Homeless Z59.0 [facility] [place] [id number] [place], [place] [id number] Jul, COPD exacerbation J44.1 ; Hypoxia R09.02 ; Community acquired pneumonia, unspecified laterality J18.9 ; Tobacco abuse Z72.0 and Tobacco abuse counseling Z71.6 [facility] [place] [address] [id number] CITY, [place] [id number] Jun, [facility] [place] [id number] [place], [place] [id number] Jun, Simple chronic bronchitis J41.0 [facility] [place] [address] [id number] CITY[place] [id number] May, [facility] [place] [address] [id number] [place] [address] [id number] May, [facility] [id number] [place] [address] [id number] May, Simple chronic bronchitis J41.0 [facility] [id number] [place] [address] [id number] Apr, Grief reaction F43.20 and Simple chronic bronchitis J41.0 [facility] [id number] [place] [address] [id number] Apr, [facility] [id number] [place] [address] [id number] Mar, COPD exacerbation J44.1 and Simple chronic bronchitis J41.0 [place] [id number] [place] [address] [id number] Mar, Well woman exam with routine gynecological exam Z01.419 ; Screening breast examination Z12.31 ; Simple chronic bronchitis J41.0 ; Encounter for vaccination Z23 and Encounter for immunization Z23 [facility] [id number] [place] [address] [id number] Mar, Simple chronic bronchitis J41.0 ; Grief reaction F43.20 and COPD exacerbation J44.1 [facility] [id number] [place] [address] [id number] Feb, COPD exacerbation J44.1 [facility] [id number] [place] [address] [id number] Feb, [facility] [id number] [place] [address] [id number] Feb, Simple chronic bronchitis J41.0 [facility] [id number] [place] [address] [id number] January, Simple chronic bronchitis J41.0 ; Grief reaction F43.20 and COPD exacerbation J44.1 [place] [id number] [place] [address] [phone] January, IMMUNIZATIONS No Known Immunizations SOCIAL HISTORY Never Assessed REASON FOR VISIT Lab Fany HUTCHINS PLAN OF CARE VITAL SIGNS MEDICATIONS Unknown Medications RESULTS Name Result Date Reference Range THYROID ANALYZER 2017-03-01 TSH 0.711 0.450-4.500 CBC 2017-03-01 WBC 10.5 3.4-10.8 RBC 4.92 3.77-5.28 Hemoglobin 16.6 11.1-15.9 Hematocrit 49.5 34.0-46.6 MCV 101 79-97 MCH 33.7 26.6-33.0 MCHC 33.5 31.5-35.7 RDW 13.3 12.3-15.4 Platelets 444 150-379 Neutrophils 72 Lymphs 19 Monocytes 7 Eos 1 Basos 1 Neutrophils (Absolute) 7.6 1.4-7.0 Lymphs (Absolute) 2.0 0.7-3.1 Monocytes(Absolute) 0.7 0.1-0.9 Eos (Absolute) 0.1 0.0-0.4 Baso (Absolute) 0.1 0.0-0.2 Immature Granulocytes 0 Immature Grans (Abs) 0.0 0.0-0.1 LIPID PANEL 2017-03-01 Cholesterol, Total 247 100-199 Triglycerides 89 0-149 HDL Cholesterol 93 >39 VLDL Cholesterol Blade 18 5-40 LDL Cholesterol Calc 136 0-99 CMP 2017-03-01 Glucose, Serum 92 65-99 BUN 5 6-24 Creatinine, Serum 0.60 0.57-1.00 eGFR If NonAfricn Am 105 >59 eGFR If Africn Am 121 >59 BUN/Creatinine Ratio 8 9-23 Sodium, Serum 140 134-144 Potassium, Serum 4.8 3.5-5.2 Chloride, Serum 96 96-106 Carbon Dioxide, Total 25 18-29 Calcium, Serum 9.9 8.7-10.2 Protein, Total, Serum 7.4 6.0-8.5 Albumin, Serum 4.6 3.5-5.5 Globulin, Total 2.8 1.5-4.5 A/G Ratio 1.6 1.2-2.2 Bilirubin, Total 0.4 0.0-1.2 Alkaline Phosphatase, S 76 39-117 AST (SGOT) 21 0-40 ALT (SGPT) 13 0-32 PROCEDURES Procedure Date Ordered Result Body Site ASSAY THYROID STIM HORMONE March 01, 2017 COMPLETE CBC W/AUTO DIFF WBC March 01, 2017 COMPREHEN METABOLIC PANEL March 01, 2017 LIPID PANEL March 01, 2017 VENIPUNCT, ROUTINE* March 01, 2017 INSTRUCTIONS MEDICATIONS ADMINISTERED No Known Medications MEDICAL (GENERAL) HISTORY Type Description Date Medical History chronic obstructive pulmonary disease (COPD) Medical History chronic bronchitis Medical History 09/05/17 in home sleep study:Obstructive sleep apnea-moderate and nocturnal hypoxemia. Surgical History Blood vessel removal from head 1982 Surgical History tubal ligation Hospitalization History bronchitis
--- OUTSIDE RECORDS SUMMARY | 2018-08-21 06:33 | XMS REPORT ---
Author Author BOB ALTMAN Organization [facility] Address [address] [place] [address] Care Team Providers Care Department Store Salesperson Name Role Phone BOB ALTMAN Unavailable PROBLEMS Type Condition ICD9-CM Code ACX46-ER Code Onset Dates Condition Status SNOMED Code Problem AVEL (obstructive sleep apnea) G47.33 Active 98644910 Problem COPD mixed type J44.9 Active 82313175 Problem Simple chronic bronchitis J41.0 Active 68772662 Problem COPD exacerbation J44.1 Active 759213820 Problem Hypoxia R09.02 Active 817152658 Problem Grief reaction F43.20 Active 93807518 ALLERGIES No Information ENCOUNTERS Encounter Location Date Diagnosis [facility] [address] [id number], [place] [phone] Feb, [facility] [id number] [place] [address] [id number] Feb, [facility] [id number] [place] [address] [id number] January, COPD mixed type J44.9 [facility] [id number], [place] [id number] January, [facility] [id number] [place] [address] [phone] January, [facility] [address] [id number] January, [facility] [id number] [place] [address] [id number] Dec, [facility] [id number], [place] [id number] Dec, [facility] [id number] [place] [address] [id number] Dec, Abdominal mass, LLQ (left lower quadrant) R19.04 [facility] [id number] [place] [address] [id number] Nov, Left lower quadrant pain R10.32 ; Abdominal mass, LLQ (left lower quadrant ) R19.04 and Weight loss R63.4 [facility] [id number] [place] [address] [id number] Nov, [facility] [address] [place] [address] [phone] Nov, COPD exacerbation J44.1 and Hypoxia R09.02 [facility] [id number] [place] [address] [id number] Nov, Hyponatremia E87.1 and COPD mixed type J44.9 [facility] [place] [id number] [place] [address] [id number] Nov, COPD mixed type J44.9 [facility] [place] [id number] [place] [address] [phone] Nov, AVEL (obstructive sleep apnea) G47.33 and Hypoxia R09.02 [facility] [place] [id number] [place] [address] [id number] Nov, [facility] [place] [id number] [place] [address] [id number] Oct, [facility] [id number] [place] [address] [id number] Oct, COPD mixed type J44.9 ; Hypoxia R09.02 and AVEL (obstructive sleep apnea) G47.33 [facility] [address] [id number], [place] [phone] Oct, [facility] [address] [place] [address] [id number] Aug, [facility] [id number] [place] [address] [id number] Aug, [facility] [id number] [place] [address] [id number] Aug, COPD mixed type J44.9 ; Hypoxia R09.02 ; Edema of lower extremity R60.0 ; Hyponatremia E87.1 and Tobacco abuse counseling Z71.6 [facility] [place] [address] [id number], [place] [phone] Aug, COPD exacerbation J44.1 [facility] [place] [address] [id number], [place] [phone] Aug, [facility] [place] [place] [address] [id number], [place] [phone] Aug, [facility] [place] [id number] [place] [address] [id number] Aug, [facility] [place] [id number] [place] [address] [id number] Aug, COPD mixed type J44.9 and Hypoxia R09.02 [facility] [place] [facility] [address] [id number] [place] [address] Jul [facility] [place] [id number] [place] [address] [id number] Jul, COPD exacerbation J44.1 and Hypoxia R09.02 [facility] [id number], [place] [phone] Jul, COPD exacerbation J44.1 and Homeless Z59.0 [facility] [id number] [place] [address] [id number] Jul, COPD exacerbation J44.1 ; Hypoxia R09.02 ; Community acquired pneumonia, unspecified laterality J18.9 ; Tobacco abuse Z72.0 and Tobacco abuse counseling Z71.6 [facility] [place] [address] [id number], [place] [phone] Jun, [facility] [place] [address] [id number], [place] [phone] Jun, Simple chronic bronchitis J41.0 [facility] [place] [id number] [place] [address] [id number] May, [facility] [place] [id number] [place] [address] [id number] May, [facility] [place] [address] [id number], [place] [phone] May, Simple chronic bronchitis J41.0 [facility] [place] [id number] [place] [address] [id number] Apr, Grief reaction F43.20 and Simple chronic bronchitis J41.0 [facility] [id number] [place] [address] [id number] Apr, [facility] [id number] [place] [address] [id number] Mar, COPD exacerbation J44.1 and Simple chronic bronchitis J41.0 [facility] [id number] [place] [address] [id number] Mar, Well woman exam with routine gynecological exam Z01.419 ; Screening breast examination Z12.31 ; Simple chronic bronchitis J41.0 ; Encounter for vaccination Z23 and Encounter for immunization Z23 [facility] [id number] [place] [address] [id number] Mar, Simple chronic bronchitis J41.0 ; Grief reaction F43.20 and COPD exacerbation J44.1 [facility] [id number] [place] [address] [id number] Feb, COPD exacerbation J44.1 [facility] [id number] [place] [address] [id number] Feb, [facility] [id number] [place] [address] [id number] Feb, Simple chronic bronchitis J41.0 [facility] [id number] [place] [address] [id number] January, Simple chronic bronchitis J41.0 ; Grief reaction F43.20 and COPD exacerbation J44.1 [facility] [id number] [place] [address] [id number] January, IMMUNIZATIONS No Known Immunizations SOCIAL HISTORY [...]
--- OUTSIDE RECORDS SUMMARY | 2018-08-21 06:33 | XMS REPORT ---
Author Author BOB ALTMAN Organization [facility] Address [address] [place] [address] Care Team Providers Care Geodetic Computator Name Role Phone BOB ALTMAN Unavailable PROBLEMS Type Condition ICD9-CM Code OFB11-CT Code Onset Dates Condition Status SNOMED Code Problem AVEL (obstructive sleep apnea) G47.33 Active 34456725 Problem COPD mixed type J44.9 Active 19868295 Problem Simple chronic bronchitis J41.0 Active 80867597 Problem COPD exacerbation J44.1 Active 326244082 Problem Hypoxia R09.02 Active 182063399 Problem Grief reaction F43.20 Active 21991403 ALLERGIES No Information ENCOUNTERS Encounter Location Date Diagnosis [address] [id number] Nov, Left lower quadrant pain R10.32 ; Abdominal mass, LLQ (left lower quadrant ) R19.04 and Weight loss R63.[id number] [place] [address] [id number] Nov, [address] [id number] Nov, COPD exacerbation J44.1 and Hypoxia R09.02 [address] [id number] [place] [address] [id number] Nov, Hyponatremia E87.1 and COPD mixed type J44.[address] [id number] Nov, COPD mixed type J44.[address] [id number] Nov, AVEL (obstructive sleep apnea) G47.33 and Hypoxia R09.02 [place] [id number] [place] [address] [id number] Nov, [facility] [address] [id number] [place] [id number] Oct, [facility] [id number] [place] [id number] Oct, COPD mixed type J44.9 ; Hypoxia R09.02 and AVEL (obstructive sleep apnea) G47.[address] [facility] [address] [id number] [phone] Oct, [facility] [address] [id number] [place] [id number] Aug, [facility] [id number] [place] [address] [id number] Aug, [facility] [id number] [place] [id number] Aug, COPD mixed type J44.9 ; Hypoxia R09.02 ; Edema of lower extremity R60.0 ; Hyponatremia E87.1 and Tobacco abuse counseling Z71.6 [facility] [address] [id number] [place] [phone] Aug, COPD exacerbation J44.1 [facility] [address] [id number] [place] [id number] Aug, [facility] [id number] [place] [phone] Aug, [facility] [id number] [place] [address] [id number] Aug, [facility] [id number] [place] [phone] Aug, COPD mixed type J44.9 and Hypoxia R09.02 [facility] [address] [id number] [place] [address] Jul [facility] [id number] [place] [id number] Jul, COPD exacerbation J44.1 and Hypoxia R09.[address] [facility] [address] [id number], [place] [id number] Jul, COPD exacerbation J44.1 and Homeless Z59.0 [facility] [id number] [place] [address] [id number] Jul, COPD exacerbation J44.1 ; Hypoxia R09.02 ; Community acquired pneumonia, unspecified laterality J18.9 ; Tobacco abuse Z72.0 and Tobacco abuse counseling Z71.6 [facility] [id number] [place] [address] [id number] Jun, [facility] [address] [id number] Jun, Simple chronic bronchitis J41.0 [facility] [id number] [place] [address] [id number] May, [facility] [address] [id number] May, [facility] [id number] [place] [address] [id number] May, Simple chronic bronchitis J41.0 [facility] [id number] [place] [address] [id number] Apr, Grief reaction F43.20 and Simple chronic bronchitis J41.0 [facility] [id number] [place] [address] [id number] Apr, [facility] [id number] [place] [address] [id number] Mar, COPD exacerbation J44.1 and Simple chronic bronchitis J41.0 [facility] [id number] [place] [address] [id number] Mar, Well woman exam with routine gynecological exam Z01.419 ; Screening breast examination Z12.31 ; Simple chronic bronchitis J41.0 ; Encounter for vaccination Z23 and Encounter for immunization Z23 [facility] [id number] [place] [address] [id number] Mar, Simple chronic bronchitis J41.0 ; Grief reaction F43.20 and COPD exacerbation J44.1 [facility] [id number] [place] [address] [id number] Feb, COPD exacerbation J44.1 [facility] [id number] [place] [address] [id number] Feb, [facility] [address] [facility] [id number] [place] [phone] Feb, Simple chronic bronchitis J41.0 [facility] 120 [facility] [id number] [place] [phone] January, Simple chronic bronchitis J41.0 ; Grief reaction F43.20 and COPD exacerbation J44.1 [facility] 120 [facility] [id number] [place] [phone] January, IMMUNIZATIONS No Known Immunizations SOCIAL HISTORY Never Assessed REASON FOR VISIT PALS PLAN OF CARE VITAL SIGNS MEDICATIONS Medication Instructions Dosage Frequency Start Date End Date Duration Status Symbicort 160-4.5 MCG/ACT Inhalation Twice a day 2 puffs 12h Feb, Active Singulair 10 mg Orally Once a day 1 tablet in the evening 24h Mar, 0 days Active ProAir HFA 108 (90 [...]
--- OUTSIDE RECORDS SUMMARY | 2018-08-21 06:33 | XMS REPORT ---
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 Worker Name Role Phone BOB ALTMAN Unavailable PROBLEMS Type Condition ICD9-CM Code SVN20-FK Code Onset Dates Condition Status SNOMED Code Problem AEVL (obstructive sleep apnea) G47.33 Active 37673604 Problem COPD mixed type J44.9 Active 91048322 Problem Simple chronic bronchitis J41.0 Active 33864606 Problem COPD exacerbation J44.1 Active 137206445 Problem Hypoxia R09.02 Active 899396267 Problem Grief reaction F43.20 Active 32009946 ALLERGIES No Known Allergies ENCOUNTERS Encounter Location Date [facility] [address] [id number] [phone] Feb, [facility] [id number] [place] [address] [id number] January, COPD mixed type J44.9 [facility] [id number], [place] [id number] January, [facility] [id number], [place] [id number] January, [facility] [address]00565100[place] [address] January, [facility] [id number], [place] [id number] Dec, [facility] [id number] [place] [address] [id number] Dec, [facility] [address] [id number], [place] [phone] Dec, Abdominal mass, LLQ (left lower quadrant) R19.04 [facility] [id number] [place] [address] [id number] Nov, Left lower quadrant pain R10.32 ; Abdominal mass, LLQ (left lower quadrant ) R19.04 ; Weight loss R63.4 ; COPD mixed type J44.9 and Hypoxia R09.02 [facility] [id number] [place] [address] [id number] Nov, [facility] [place] [id number] [place] [address] [id number] Nov, COPD exacerbation J44.1 and Hypoxia R09.02 [facility] [id number] [place] [address] [id number] Nov, Hyponatremia E87.1 and COPD mixed type J44.9 [facility] [place] [id number] [place] [address] [id number] Nov, COPD mixed type J44.9 [facility] [place] [id number] [place] [address] [id number] Nov, AVEL (obstructive sleep apnea) G47.33 and Hypoxia R09.02 [facility] [place] [id number] [place] [address] [id number] Nov, [facility] [address] [place] [address] [id number] Oct, [facility] [place] [id number] [place] [address] [id number] Oct, COPD mixed type J44.9 ; Hypoxia R09.02 and AVEL (obstructive sleep apnea) G47.33 [facility] [address] [id number], [place] [phone] Oct, [facility] [place] [address]00565100[place], [place] [id number] Aug, [facility] [address] [place] [address] [id number] Aug, [facility] [place] [id number] [place] [address] [id number] Aug, COPD mixed type J44.9 ; Hypoxia R09.02 ; Edema of lower extremity R60.0 ; Hyponatremia E87.1 and Tobacco abuse counseling Z71.6 [facility] [address] [id number], [place] [phone] Aug, COPD exacerbation J44.1 [facility] [place] [address] [id number], [place] [phone] Aug, [facility] [address] [id number], [place] [phone] Aug, [facility] [address] [id number], [place] [id number] Aug, [facility] [id number] [place] [address] [id number] Aug, COPD mixed type J44.9 and Hypoxia R09.02 [facility] [address] [id number] [place] [address] Jul [facility] [id number], [place] [id number] Jul, COPD exacerbation J44.1 and Hypoxia R09.[address] [id number], [place] [id number] Jul, COPD exacerbation J44.1 and Homeless Z59.0 [facility] [id number], [place] [id number] Jul, COPD exacerbation J44.1 ; Hypoxia R09.02 ; Community acquired pneumonia, unspecified laterality J18.9 ; Tobacco abuse Z72.0 and Tobacco abuse counseling Z71.6 [facility] [id number], [place] [id number] Jun, Simple chronic bronchitis J41.0 [facility] [address] [id number], [place] [phone] Jun, [facility] [id number], [place] [id number] May, [facility] [id number] [place] [address] [id number] May, [facility] [address] [id number], [place] [id number] May, Simple chronic bronchitis J41.0 [facility] [id number], [place] [id number] Apr, Grief reaction F43.20 and Simple chronic bronchitis J41.0 [facility] [id number] [place] [address] [id number] Apr, [facility] [place] [id number] [place] [address] [id number] Mar, COPD exacerbation J44.1 and Simple chronic bronchitis J41.0 [facility] [id number] [place] [address] [id number] Mar, Well woman exam with routine gynecological exam Z01.419 ; Screening breast examination Z12.31 ; Simple chronic bronchitis J41.0 ; Encounter for vaccination Z23 and Encounter for immunization Z23 [facility] [id number] [place] [address] [id number] Mar, Simple chronic bronchitis J41.0 ; Grief reaction F43.20 and COPD exacerbation J44.1 [facility] [id number] [place] [address] [id number] Feb, COPD exacerbation J44.1 [facility] [id number] [place] [address] [id number] Feb, [facility] [id number] [place] [address] [id number] Feb, Simple chronic bronchitis J41.0 [facility] [id number] [place] [address] [id number] January, Simple chronic bronchitis J41.0 ; Grief reaction F43.20 and COPD exacerbation J44.1 [facility] [id number] [place] [address] [id number] January, IMMUNIZATIONS No Known Immunizations SOCIAL HISTORY Never Assessed REASON FOR VISIT Swollen Feet not improving, O2 check/ wants to know if she is to continue the joss Soares RN PLAN OF CARE Activity Details Follow Up 4 Weeks Reason:CHM COPD VITAL SIGNS Height 65 in 2017-09-05 Weight 142.6 lbs 2017-09-05 Temperature 97.5 degrees Fahrenheit 2017-09-05 Heart Rate 96 bpm 2017-09-05 Respiratory Rate 18 2017-09-05 BMI 23.73 kg/m2 2017-09-05 Blood pressure systolic 120 mmHg 2017-09-05 Blood pressure diastolic 60 mmHg 2017-09-05 MEDICATIONS Medication Instructions Dosage Frequency Start Date End Date Duration Status Furosemide 20 mg Orally Once a day 1/2 tablet 24h 0 days Active Spiriva HandiHaler 18 MCG Inhalation Once a day 1 capsule 24h Active Singulair 10 mg Orally Once a day 1 tablet in the evening 24h Mar, Active Potassium Chloride CR 20 meq Orally Once a day 1/2 tablet with food 24h Aug, 0 days Active Symbicort 160-4.5 MCG/ACT Inhalation Twice a day 2 puffs 12h Feb, Active Albuterol Sulfate (2.5 MG/3ML) 0.083% Inhalation Three times a day 3 ml 8h Active ProAir HFA 108 (90 Base) MCG/ACT Inhalation every 4 hrs 2 puffs as needed 4h Active Oxygen per NC continuous 2L Aug, Aug, 0 days Active RESULTS No Results PROCEDURES Procedure Date Ordered Result Body Site COMPLETE CBC W/AUTO DIFF WBC Sep 05, 2017 COMPREHEN METABOLIC PANEL Sep 05, 2017 INSTRUCTIONS MEDICATIONS ADMINISTERED No Known Medications MEDICAL (GENERAL) HISTORY Type Description Date Medical History chronic obstructive pulmonary disease (COPD) Medical History chronic bronchitis Medical History 09/05/17 in home sleep study:Obstructive sleep apnea-moderate and nocturnal hypoxemia. Surgical History Blood vessel removal from head 1982 Surgical History tubal ligation Hospitalization History bronchitis
--- OUTSIDE RECORDS SUMMARY | 2018-08-21 06:34 | XMS REPORT ---
Author Author BOB ALTMAN Organization [facility] Address [address] [place] [address] Care Team Providers Care Legal Intern Name Role Phone BOB ALTMAN Unavailable PROBLEMS Type Condition ICD9-CM Code KPU11-XD Code Onset Dates Condition Status SNOMED Code Problem AVEL (obstructive sleep apnea) G47.33 Active 50952320 Problem COPD mixed type J44.9 Active 96830073 Problem Simple chronic bronchitis J41.0 Active 49975595 Problem COPD exacerbation J44.1 Active 676163187 Problem Hypoxia R09.02 Active 170762918 Problem Grief reaction F43.20 Active 18594176 ALLERGIES No Information ENCOUNTERS Encounter Location Date Diagnosis [id number] [id number] [id number] Dec, [address] [place] [address] [id number] Dec, [place] [id number] [place] [address] [id number] Dec, [facility] [id number] [place] [address] [id number] Dec, Abdominal mass, LLQ (left lower quadrant) R19.04 [facility] [id number] [place] [address] [id number] Nov, Left lower quadrant pain R10.32 ; Abdominal mass, LLQ (left lower quadrant ) R19.04 and Weight loss R63.4 [facility] [id number] [place] [address] [id number] Nov, [facility] [id number] [place] [address] [id number] Nov, COPD exacerbation J44.1 and Hypoxia R09.02 [place] [id number] [place] [address] [id number] Nov, Hyponatremia E87.1 and COPD mixed type J44.9 [facility] [place] [id number] [place] [address] [id number] Nov, COPD mixed type J44.9 [facility] [place] [address] [id number] [place] [address] [id number] Nov, AVEL (obstructive sleep apnea) G47.33 and Hypoxia R09.02 [facility] [place] [id number] [place] [address] [id number] Nov, [facility] [address] [id number] [place] [address] [id number] Oct, [facility] [address] [id number] [place] [address] [id number] Oct, COPD mixed type J44.9 ; Hypoxia R09.02 and AVEL (obstructive sleep apnea) G47.33 [facility] [address] [id number][place] [phone] Oct, [facility] [place] [id number] [place] [address] [id number] Aug, [facility] [id number] [place] [address] [id number] Aug, [facility] [place] [id number] [place] [address] [id number] Aug, COPD mixed type J44.9 ; Hypoxia R09.02 ; Edema of lower extremity R60.0 ; Hyponatremia E87.1 and Tobacco abuse counseling Z71.6 [facility] [address] [id number] [place] [address] [id number] Aug, COPD exacerbation J44.1 [facility] [address] [id number] [place] [address] [id number] Aug, [facility] [address] [id number] [place] [address] [id number] Aug, [facility] [place] [address] [id number] [place] [address] [id number] Aug, [facility] [id number] [place] [address] [id number] Aug, COPD mixed type J44.9 and Hypoxia R09.02 [facility]IDA Armstrong [address] [id number] [place] [address] Jul [facility] [place] [id number] [place] [address] [id number] Jul, COPD exacerbation J44.1 and Hypoxia R09.02 [facility] [id number][place] [phone] Jul, COPD exacerbation J44.1 and Homeless Z59.0 [facility] [place] [id number] [place] [address] [id number] Jul, COPD exacerbation J44.1 ; Hypoxia R09.02 ; Community acquired pneumonia, unspecified laterality J18.9 ; Tobacco abuse Z72.0 and Tobacco abuse counseling Z71.6 [facility] [place] [id number] [place] [address] [id number] Jun, [facility] [place] [id number] [place] [address] [id number] Jun, Simple chronic bronchitis J41.0 [facility] [address] [id number] [place] [address] [id number] May, [facility] [place] [id number] [place] [address] [id number] May, [facility] [id number] [place] [address] [id number] May, Simple chronic bronchitis J41.0 [facility] [id number] [place] [address] [id number] Apr, Grief reaction F43.20 and Simple chronic bronchitis J41.0 [facility] [id number] [place] [address] [id number] Apr, [facility] [id number] [place] [address] [id number] Mar, COPD exacerbation J44.1 and Simple chronic bronchitis J41.0 [facility] [id number] [place] [address] [id number] Mar, Well woman exam with routine gynecological exam Z01.419 ; Screening breast examination Z12.31 ; Simple chronic bronchitis J41.0 ; Encounter for vaccination Z23 and Encounter for immunization Z23 [facility] [id number] [place] [address] [id number] Mar, Simple chronic bronchitis J41.0 ; Grief reaction F43.20 and COPD exacerbation J44.1 [facility] [id number] [place] [address] [id number] Feb, COPD exacerbation J44.1 [place] [id number] [place] [address] [id number] Feb, [facility] [address] [place] [address] [id number] Feb, Simple chronic bronchitis J41.0 [place] [id number] [place] [address] [id number] January, Simple chronic bronchitis J41.0 ; Grief reaction F43.20 and COPD exacerbation J44.1 [address] [phone] January, IMMUNIZATIONS No Known Immunizations SOCIAL HISTORY [...]
--- OUTSIDE RECORDS SUMMARY | 2018-08-21 06:34 | XMS REPORT ---
Author Author BOB ALTMAN Organization [facility] Address [address] [place] [address] Care Team Providers Care Internet Marketing Analyst Name Role Phone BOB ALTMAN Unavailable PROBLEMS Type Condition ICD9-CM Code HRB44-WC Code Onset Dates Condition Status SNOMED Code Problem AVEL (obstructive sleep apnea) G47.33 Active 61798415 Problem COPD mixed type J44.9 Active 67755950 Problem Simple chronic bronchitis J41.0 Active 55488744 Problem COPD exacerbation J44.1 Active 734964360 Problem Hypoxia R09.02 Active 222026913 Problem Grief reaction F43.20 Active 92163790 ALLERGIES No Information ENCOUNTERS Encounter Location Date Diagnosis [id number] [place] [id number] Dec, [address] [id number] Dec, Abdominal mass, LLQ (left lower quadrant) R19.04 [id number] [place] [address] [id number] Nov, Left lower quadrant pain R10.32 ; Abdominal mass, LLQ (left lower quadrant ) R19.04 and Weight loss R63.4 [id number] [place] [address] [id number] Nov, [address] [id number] [place] [address] [id number] Nov, COPD exacerbation J44.1 and Hypoxia R09.[address] [id number] Nov, Hyponatremia E87.1 and COPD mixed type J44.9 [id number] [place] [address] [id number] Nov, COPD mixed type J44.9 [facility] [place] [id number] [place] [id number] Nov, AVEL (obstructive sleep apnea) G47.33 and Hypoxia R09.02 [facility] [id number] [place] [phone] Nov, [facility] [id number] [place]ACH[place] [phone] Oct, [facility] [id number] [place] [address] [id number] Oct, COPD mixed type J44.9 ; Hypoxia R09.02 and AVEL (obstructive sleep apnea) G47.33 [facility] [address] [id number] Oct, [facility] [id number] [place] [address] [id number] Aug, [facility] [place] [id number] [place] [address] [id number] Aug, [facility] [id number] [place] [address] [id number] Aug, COPD mixed type J44.9 ; Hypoxia R09.02 ; Edema of lower extremity R60.0 ; Hyponatremia E87.1 and Tobacco abuse counseling Z71.6 [facility] [place] [id number] [place] [address] [id number] Aug, COPD exacerbation J44.1 [facility] [id number] [place]ACH[place] [id number] Aug, [facility] [id number] [place] [address] [id number] Aug, [facility] [id number] [place] [address] [id number] Aug, [facility] [id number] [place] [address] [id number] Aug, COPD mixed type J44.9 and Hypoxia R09.02 [facility] [address] [place], [place] [address]E [facility] [place][id number] [place] [address] Jul [facility] [place] [id number] [place] [address] [id number] Jul, COPD exacerbation J44.1 and Hypoxia R09.02 [facility] [id number][place] [phone] Jul, COPD exacerbation J44.1 and Homeless Z59.0 [facility] [id number] [place] [address] [id number] Jul, COPD exacerbation J44.1 ; Hypoxia R09.02 ; Community acquired pneumonia, unspecified laterality J18.9 ; Tobacco abuse Z72.0 and Tobacco abuse counseling Z71.6 [facility] [id number] [place] [address] [id number] Jun, [facility] [id number] [place] [address] [id number] Jun, Simple chronic bronchitis J41.0 [facility] [id number] [place] [address] [id number] May, [facility] [id number] [place] [address] [id number] May, [facility] [id number] [place] [address] [id number] May, Simple chronic bronchitis J41.0 [facility] [id number] [place] [address] [id number] Apr, Grief reaction F43.20 and Simple chronic bronchitis J41.0 [facility] [id number] [place] [address] [id number] Apr, [facility] [id number] [place] [address] [id number] Mar, COPD exacerbation J44.1 and Simple chronic bronchitis J41.0 [facility] [id number] [place] [address] [id number] Mar, Well woman exam with routine gynecological exam Z01.419 ; Screening breast examination Z12.31 ; Simple chronic bronchitis J41.0 ; Encounter for vaccination Z23 and Encounter for immunization Z23 [facility] [id number] [place] [address] [id number] Mar, Simple chronic bronchitis J41.0 ; Grief reaction F43.20 and COPD exacerbation J44.1 [facility] [address] [facility] [id number] [place] [id number] Feb, COPD exacerbation J44.1 [facility] [address] [id number] [place] [id number] Feb, [facility] [id number] [place] [phone] Feb, Simple chronic bronchitis J41.0 [facility] [id number] [place] [address] [id number] January, Simple chronic bronchitis J41.0 ; Grief reaction F43.20 and COPD exacerbation J44.1 [place] [id number] [id number] January, IMMUNIZATIONS No Known Immunizations SOCIAL HISTORY Never Assessed REASON FOR VISIT lab letter PLAN OF CARE VITAL SIGNS MEDICATIONS Unknown [...]
--- OUTSIDE RECORDS SUMMARY | 2018-08-21 06:34 | XMS REPORT ---
Author Author BOB ALTMAN Organization [facility] Address [address] [place] [address] Care Team Providers Care Metal Worker Name Role Phone BOB ALTMAN Unavailable PROBLEMS Type Condition ICD9-CM Code EBB36-PC Code Onset Dates Condition Status SNOMED Code Problem AVEL (obstructive sleep apnea) G47.33 Active 90020780 Problem COPD mixed type J44.9 Active 04446141 Problem Simple chronic bronchitis J41.0 Active 50603362 Problem COPD exacerbation J44.1 Active 174687568 Problem Hypoxia R09.02 Active 105862399 Problem Grief reaction F43.20 Active 56804711 ALLERGIES No Information ENCOUNTERS Encounter Location Date Diagnosis [facility] [address] [id number] [id number] Mar, [facility] [id number] [place] [address] [id number] Mar, [facility] [address] [facility] [id number] [place] [address] [id number] Mar, Dental examination Z01.20 [facility] [address]00565100[place], [place] [address] Feb, [facility] [id number] [place] [address] [id number] January, COPD mixed type J44.9 [facility] [address] [facility] [id number][place] [id number] January, [facility] [id number] [place] [address] [id number] January, [facility] [address]00565100[place], [place] [address] January, [facility] [id number] [place] [address] [id number] Dec, [facility] [id number], [place] [id number] Dec, [facility] [id number] [place] [address] [phone] Dec, Abdominal mass, LLQ (left lower quadrant) R19.04 [facility] [id number] [place] [address] [id number] Nov, Left lower quadrant pain R10.32 ; Abdominal mass, LLQ (left lower quadrant ) R19.04 ; Weight loss R63.4 ; COPD mixed type J44.9 and Hypoxia R09.02 [facility] [id number] [place] [address] [id number] Nov, [facility] [id number] [place] [address] [id number] Nov, COPD exacerbation J44.1 and Hypoxia R09.02 [facility] [place] [id number] [place] [address] [id number] Nov, Hyponatremia E87.1 and COPD mixed type J44.9 [facility] [id number] [place] [address] [id number] Nov, COPD mixed type J44.9 [facility] [id number] [place] [address] [id number] Nov, AVEL (obstructive sleep apnea) G47.33 and Hypoxia R09.02 [facility] [address]00565[address] [id number] Nov, [facility] [id number] [place] [address] [id number] Oct, [facility] [id number], [place] [id number] Oct, COPD mixed type J44.9 ; Hypoxia R09.02 and AVEL (obstructive sleep apnea) G47.33 [facility] [place] [address] [facility] [id number], [place] [phone] Oct, [facility] [id number], [place] [id number] Aug, [facility] [address] [id number], [place] [id number] Aug, [facility] [place] [id number] [place] [address] [id number] Aug, COPD mixed type J44.9 ; Hypoxia R09.02 ; Edema of lower extremity R60.0 ; Hyponatremia E87.1 and Tobacco abuse counseling Z71.6 [facility] [place] [id number] [place] [address] [id number] Aug, COPD exacerbation J44.1 [facility] [place] [address] [id number], [place] [phone] Aug, [facility] [place] [id number] [place] [address] [id number] Aug, [facility] [id number] [place] [address] [id number] Aug, [facility] [place] [id number] [place] [address] [id number] Aug, COPD mixed type J44.9 and Hypoxia R09.02 [facility] [place] [facility] [address] [id number] [place] [address] Jul [facility] [place] [id number] [place] [address] [id number] Jul, COPD exacerbation J44.1 and Hypoxia R09.02 [facility] [id number], [place] [phone] Jul, COPD exacerbation J44.1 and Homeless Z59.0 [facility] [place] [id number] [place] [address] [id number] Jul, COPD exacerbation J44.1 ; Hypoxia R09.02 ; Community acquired pneumonia, unspecified laterality J18.9 ; Tobacco abuse Z72.0 and Tobacco abuse counseling Z71.6 [facility] [place] [id number] [place] [address] [id number] Jun, [facility] [place] [id number] [place] [address] [id number] Jun, Simple chronic bronchitis J41.0 [facility] [place] [id number] [place] [address] [id number] May, [facility] [id number], [place] [id number] May, [facility] [id number] [place] [address] [id number] May, Simple chronic bronchitis J41.0 [facility] [id number], [place] [id number] Apr, Grief reaction F43.20 and Simple chronic bronchitis J41.0 [facility] [id number] [place] [address] [id number] Apr, [facility] [id number] [place] [address] [id number] Mar, COPD exacerbation J44.1 and Simple chronic bronchitis J41.0 [facility] [id number] [place] [address] [id number] Mar, Well woman exam with routine gynecological exam Z01.419 ; Screening breast examination Z12.31 ; Simple chronic bronchitis J41.0 ; Encounter for vaccination Z23 and Encounter for immunization Z23 [facility] [id number] [place] [address] [id number] Mar, Simple chronic bronchitis J41.0 ; Grief reaction F43.20 and COPD exacerbation J44.1 [facility] [id number], [place] [id number] Feb, COPD exacerbation J44.1 [facility] [id number] [place] [address] [id number] Feb, [facility] [id number], [place] [phone] Feb, Simple chronic bronchitis J41.0 [facility] [id number], [place] [id number] January, Simple chronic bronchitis J41.0 ; Grief reaction F43.20 and COPD exacerbation J44.1 [facility] [id number] [place] [address] [id number] January, IMMUNIZATIONS No Known Immunizations SOCIAL HISTORY Never Assessed REASON FOR VISIT Work note PLAN OF CARE VITAL SIGNS MEDICATIONS Unknown [...]
--- OUTSIDE RECORDS SUMMARY | 2018-08-21 06:34 | XMS REPORT ---
Author Author BOB ALTMAN Organization [facility] Address [address] [place] [address] Care Team Providers Care Chief Investigator Name Role Phone BOB ALTMAN Unavailable PROBLEMS Type Condition ICD9-CM Code [id number] Code Onset Dates Condition Status SNOMED Code Problem AVEL (obstructive sleep apnea) G47.33 Active 45173985 Problem COPD mixed type J44.9 Active 66231624 Problem Simple chronic bronchitis J41.0 Active 15789030 Problem COPD exacerbation J44.1 Active 714949357 Problem Hypoxia R09.02 Active 449158025 Problem Grief reaction F43.20 Active 22380178 ALLERGIES No Information ENCOUNTERS Encounter Location Date [facility] [address] [id number] [id number] Feb, [facility] [id number] [place] [address] [phone] January, COPD mixed type J44.9 [facility] [id number] [place] [phone] January, [facility] [id number] [place] [id number] January, [facility] [address]00565[address] [address] January, [facility] [id number] [place] [phone] Dec, [facility] [id number] [place] [address] [id number] Dec, [facility] [id number] [place] [address] [phone] Dec, Abdominal mass, LLQ (left lower quadrant) R19.04 [facility] [id number] [place] [address] [phone] Nov, Left lower quadrant pain R10.32 ; Abdominal mass, LLQ (left lower quadrant ) R19.04 ; Weight loss R63.4 ; COPD mixed type J44.9 and Hypoxia R09.02 [facility] [place] [id number] [place] [address] [phone] Nov, [facility] [place] [id number] [place] [address] [id number] Nov, COPD exacerbation J44.1 and Hypoxia R09.02 [facility] [place] [id number] [place] [address] [phone] Nov, Hyponatremia E87.1 and COPD mixed type J44.9 [facility] [place] [id number] [place] [address] [phone] Nov, COPD mixed type J44.9 [facility] [place] [id number] [place] [address] [phone] Nov, AVEL (obstructive sleep apnea) G47.33 and Hypoxia R09.02 [facility] [place] [id number] [place] [address] [id number] Nov, [facility] [place] [id number] [place] [address] [phone] Oct, [facility] [place] [id number] [place] [address] [id number] Oct, COPD mixed type J44.9 ; Hypoxia R09.02 and AVEL (obstructive sleep apnea) G47.33 [facility] [address] [id number], [place] [phone] Oct, [facility] [place] [address]00565100[place] [phone] Aug, [facility] [address] [place] [address] [phone] Aug, [facility] [place] [id number] [place] [address] [id number] Aug, COPD mixed type J44.9 ; Hypoxia R09.02 ; Edema of lower extremity R60.0 ; Hyponatremia E87.1 and Tobacco abuse counseling Z71.6 [facility] [address] [id number] [place] [phone] Aug, COPD exacerbation J44.1 [facility] [place] [address] [id number] [place] [phone] Aug, [facility] [place] [address] [id number] [place] [phone] Aug, [facility] [address] [id number] [place] [phone] Aug, [facility] [id number] [place] [address] [id number] Aug, COPD mixed type J44.9 and Hypoxia R09.02 [facility] [place] [facility] [address] [id number] [place] [address] Jul [facility] [id number] [place] [id number] Jul, COPD exacerbation J44.1 and Hypoxia R09.[address] [id number], [place] [id number] Jul, COPD exacerbation J44.1 and Homeless Z59.0 [facility] [id number] [place] [phone] Jul, COPD exacerbation J44.1 ; Hypoxia R09.02 ; Community acquired pneumonia, unspecified laterality J18.9 ; Tobacco abuse Z72.0 and Tobacco abuse counseling Z71.6 [facility] [id number] [place] [phone] Jun, Simple chronic bronchitis J41.0 [facility] [address] [id number] [place] [phone] Jun, [facility] [id number] [place] [phone] May, [facility] [id number] [place] [address] [phone] May, [facility] [id number] [place] [phone] May, Simple chronic bronchitis J41.0 [facility] [id number] [place] [phone] Apr, Grief reaction F43.20 and Simple chronic bronchitis J41.0 [facility] [id number] [place] [address] [id number] Apr, [facility] [id number] [place] [address] [id number] Mar, COPD exacerbation J44.1 and Simple chronic bronchitis J41.0 [facility] [id number] [place] [address] [id number] Mar, Well woman exam with routine gynecological exam Z01.419 ; Screening breast examination Z12.31 ; Simple chronic bronchitis J41.0 ; Encounter for vaccination Z23 and Encounter for immunization Z23 [facility] [id number] [place] [address] [id number] Mar, Simple chronic bronchitis J41.0 ; Grief reaction F43.20 and COPD exacerbation J44.1 [facility] [id number] [place] [address] [phone] Feb, COPD exacerbation J44.1 [facility] [id number] [place] [address] [id number] Feb, [facility] [id number] [place] [address] [id number] Feb, Simple chronic bronchitis J41.0 [facility] [id number] [place] [address] [id number] January, Simple chronic bronchitis J41.0 ; Grief reaction F43.20 and COPD exacerbation J44.1 [facility] [id number] [place] [address] [phone] January, IMMUNIZATIONS No Known Immunizations SOCIAL HISTORY Never Assessed REASON FOR VISIT Waiting for call back PLAN OF CARE VITAL SIGNS MEDICATIONS Unknown [...]
--- OUTSIDE RECORDS SUMMARY | 2018-08-21 06:34 | XMS REPORT ---
Author Author BOB ALTMAN Organization [facility] Address [address] [place] [address] Care Team Providers Care Installation Engineer Name Role Phone BOB ALTMAN Unavailable PROBLEMS Type Condition ICD9-CM Code [id number] Code Onset Dates Condition Status SNOMED Code Problem AVEL (obstructive sleep apnea) G47.33 Active 87761686 Problem COPD mixed type J44.9 Active 08987913 Problem Simple chronic bronchitis J41.0 Active 39119003 Problem COPD exacerbation J44.1 Active 513150520 Problem Hypoxia R09.02 Active 026713834 Problem Grief reaction F43.20 Active 82664725 ALLERGIES No Information ENCOUNTERS Encounter Location Date Diagnosis [facility] [address] [id number] January, [facility] [id number] [place] [address] [phone] Dec, [place] [address] [phone] Dec, [facility] [id number] [place] [address] [id number] Dec, Abdominal mass, LLQ (left lower quadrant) R19.04 [facility] [address] [id number] Nov, Left lower quadrant pain R10.32 ; Abdominal mass, LLQ (left lower quadrant ) R19.04 and Weight loss R63.4 [facility] [address] [id number] Nov, [place] [address] [id number] Nov, COPD exacerbation J44.1 and Hypoxia R09.[address] [place] [id number] Nov, Hyponatremia E87.1 and COPD mixed type J44.9 [facility] [id number] [place] [address] [id number] Nov, COPD mixed type J44.9 [facility] [id number] [place] [address] [id number] Nov, AVEL (obstructive sleep apnea) G47.33 and Hypoxia R09.02 [facility] [address] [id number] [place] [address] [id number] Nov, [facility] [address] [id number] [place] [address] [id number] Oct, [facility] [id number] [place] [address] [id number] Oct, COPD mixed type J44.9 ; Hypoxia R09.02 and AVEL (obstructive sleep apnea) G47.33 [facility] [address] [id number][place] [phone] Oct, [facility] [id number] [place] [address] [id number] Aug, [facility] [id number] [place] [address] [id number] Aug, [facility] [address] [id number] Aug, COPD mixed type J44.9 ; Hypoxia R09.02 ; Edema of lower extremity R60.0 ; Hyponatremia E87.1 and Tobacco abuse counseling Z71.6 [facility] [id number] [place] [address] [id number] Aug, COPD exacerbation J44.1 [facility] [id number] [place] [address] [phone] Aug, [facility] [address] [id number] [place] [address] [id number] Aug, [facility] [address] [id number] [place] [address] [id number] Aug, [facility] [id number] [place] [address] [id number] Aug, COPD mixed type J44.9 and Hypoxia R09.02 [facility] [address] [id number] [place] [address] Jul [facility] [id number] [place] [id number] Jul, COPD exacerbation J44.1 and Hypoxia R09.02 [facility] [id number][place] [phone] Jul, COPD exacerbation J44.1 and Homeless Z59.0 [facility] [place] [id number] [place] [address] [id number] Jul, COPD exacerbation J44.1 ; Hypoxia R09.02 ; Community acquired pneumonia, unspecified laterality J18.9 ; Tobacco abuse Z72.0 and Tobacco abuse counseling Z71.6 [facility] [place] [id number] [place] [address] [id number] Jun, [facility] [place] [id number] [place] [address] [id number] Jun, Simple chronic bronchitis J41.0 [facility] [place] [id number] [place] [address] [id number] May, [facility] [place] [id number] [place] [address] [id number] May, [facility] [place] [id number] [place] [address] [id number] May, Simple chronic bronchitis J41.0 [facility] [id number] [place] [address] [id number] Apr, Grief reaction F43.20 and Simple chronic bronchitis J41.0 [facility] [place] [id number] [place] [address] [id number] Apr, [facility] [place] [id number] [place] [address] [id number] Mar, COPD exacerbation J44.1 and Simple chronic bronchitis J41.0 [facility] [place] [id number] [place] [address] [id number] Mar, Well woman exam with routine gynecological exam Z01.419 ; Screening breast examination Z12.31 ; Simple chronic bronchitis J41.0 ; Encounter for vaccination Z23 and Encounter for immunization Z23 [address] [place] [address] [id number] Mar, Simple chronic bronchitis J41.0 ; Grief reaction F43.20 and COPD exacerbation J44.1 [facility] [id number] [place] [address] [id number] Feb, COPD exacerbation J44.1 [place] [id number] [place] [address] [id number] Feb, [address] [place] [address] [id number] Feb, Simple chronic bronchitis J41.0 [place] [id number] [place] [address] [id number] January, Simple chronic bronchitis J41.0 ; Grief reaction F43.20 and COPD exacerbation J44.1 [address] [place] [address] [id number] January, IMMUNIZATIONS No Known Immunizations SOCIAL HISTORY [...]
--- OUTSIDE RECORDS SUMMARY | 2018-08-21 06:34 | XMS REPORT ---
Author Author BOB ALTMAN Organization [facility] Address [address] [place] [address] Care Team Providers Care Youth Agent Name Role Phone BOB ALTMAN Unavailable PROBLEMS Type Condition ICD9-CM Code EUG10-HI Code Onset Dates Condition Status SNOMED Code Problem AVEL (obstructive sleep apnea) G47.33 Active 67462618 Problem COPD mixed type J44.9 Active 10940798 Problem Simple chronic bronchitis J41.0 Active 35792571 Problem COPD exacerbation J44.1 Active 813859035 Problem Hypoxia R09.02 Active 827410995 Problem Grief reaction F43.20 Active 64150359 ALLERGIES No Information ENCOUNTERS Encounter Location Date [facility] [address] [id number] [phone] Feb, [facility] [id number] [place] [address] [id number] January, COPD mixed type J44.9 [facility] [id number], [place] [id number] January, [facility] [id number], [place] [id number] January, [facility] [address]00565100[place], [place] [address] January, [facility] [id number], [place] [id number] Dec, [facility] [id number] [place] [address] [id number] Dec, [facility] [id number] [place] [address] [id number] Dec, Abdominal mass, LLQ (left lower quadrant) R19.04 [facility] [id number] [place] [address] [id number] Nov, Left lower quadrant pain R10.32 ; Abdominal mass, LLQ (left lower quadrant ) R19.04 ; Weight loss R63.4 ; COPD mixed type J44.9 and Hypoxia R09.02 [facility] [place] [id number] [place] [address] [id number] Nov, [facility] [place] [id number] [place] [address] [id number] Nov, COPD exacerbation J44.1 and Hypoxia R09.02 [facility] [place] [id number] [place] [address] [id number] Nov, Hyponatremia E87.1 and COPD mixed type J44.9 [facility] [place] [id number] [place] [address] [id number] Nov, COPD mixed type J44.9 [facility] [place] [id number] [place] [address] [id number] Nov, AVEL (obstructive sleep apnea) G47.33 and Hypoxia R09.02 [facility] [place] [id number] [place] [address] [id number] Nov, [facility] [place] [id number] [place] [address] [id number] Oct, [facility] [place] [id number] [place] [address] [id number] Oct, COPD mixed type J44.9 ; Hypoxia R09.02 and AVEL (obstructive sleep apnea) G47.33 [facility] [address] [id number], [place] [phone] Oct, [facility] [place] [address]00565100[place] [id number] Aug, [facility] [address] [place] [address] [id number] Aug, [facility] [place] [id number] [place] [address] [phone] Aug, COPD mixed type J44.9 ; Hypoxia R09.02 ; Edema of lower extremity R60.0 ; Hyponatremia E87.1 and Tobacco abuse counseling Z71.6 [facility] [address] [id number], [place] [id number] Aug, COPD exacerbation J44.1 [facility] [place] [address] [id number], [place] [id number] Aug, [facility] [address] [id number], [place] [id number] Aug, [facility] [address] [id number], [place] [id number] Aug, [facility] [id number] [place] [address] [id number] Aug, COPD mixed type J44.9 and Hypoxia R09.02 [facility] [address] [id number] [place] [address] Jul [facility] [id number], [place] [id number] Jul, COPD exacerbation J44.1 and Hypoxia R09.[address] [id number], [place] [phone] Jul, COPD exacerbation J44.1 and Homeless Z59.0 [facility] [id number], [place] [id number] Jul, COPD exacerbation J44.1 ; Hypoxia R09.02 ; Community acquired pneumonia, unspecified laterality J18.9 ; Tobacco abuse Z72.0 and Tobacco abuse counseling Z71.6 [facility] [id number], [place] [id number] Jun, [facility] [id number], [place] [id number] Jun, Simple chronic bronchitis J41.0 [facility] [id number], [place] [phone] May, [facility] [id number] [place] [address] [id number] May, [facility] [id number], [place] [phone] May, Simple chronic bronchitis J41.0 [facility] [id number], [place] [phone] Apr, Grief reaction F43.20 and Simple chronic bronchitis J41.0 [facility] [id number] [place] [address] [id number] Apr, [facility] [id number] [place] [address] [id number] Mar, COPD exacerbation J44.1 and Simple chronic bronchitis J41.0 [facility] [id number] [place] [address] [id number] Mar, Well woman exam with routine gynecological exam Z01.419 ; Screening breast examination Z12.31 ; Simple chronic bronchitis J41.0 ; Encounter for vaccination Z23 and Encounter for immunization Z23 [facility] [id number] [place] [address] [id number] Mar, Simple chronic bronchitis J41.0 ; Grief reaction F43.20 and COPD exacerbation J44.1 [facility] [id number] [place] [address] [id number] Feb, COPD exacerbation J44.1 [facility] [id number] [place] [address] [id number] Feb, [facility] [id number] [place] [address] [id number] Feb, Simple chronic bronchitis J41.0 [facility] [id number] [place] [address] [id number] January, Simple chronic bronchitis J41.0 ; Grief reaction F43.20 and COPD exacerbation J44.1 [facility] [id number] [place] [address] [id number] January, IMMUNIZATIONS No Known Immunizations SOCIAL HISTORY [...]
--- OUTSIDE RECORDS SUMMARY | 2018-08-21 06:34 | XMS REPORT ---
Author Author BOB ALTMAN Organization [facility] Address [address] [place] [address] Care Team Providers Care Electro Winning Operator Name Role Phone BOB ALTMAN Unavailable PROBLEMS Type Condition ICD9-CM Code DWB19-IP Code Onset Dates Condition Status SNOMED Code Problem AVEL (obstructive sleep apnea) G47.33 Active 87901551 Problem COPD mixed type J44.9 Active 44433839 Problem Simple chronic bronchitis J41.0 Active 92677665 Problem COPD exacerbation J44.1 Active 484238746 Problem Hypoxia R09.02 Active 131413279 Problem Grief reaction F43.20 Active 24939738 ALLERGIES No Known Allergies ENCOUNTERS Encounter Location Date [facility] [id number] [id number] [phone] Feb, [facility] [id number] [place] [address] [phone] January, [facility] [id number] [place] [address] [phone] January, [facility] [place] [address] [facility] [id number], [place] [address] January, [facility] [id number] [place] [address] [id number] Dec, [facility] [id number] [place] [address] [phone] Dec, [facility] [id number] [place] [address] [id number] Dec, Abdominal mass, LLQ (left lower quadrant) R19.04 [facility] [id number] [place] [address] [id number] Nov, Left lower quadrant pain R10.32 ; Abdominal mass, LLQ (left lower quadrant ) R19.04 and Weight loss R63.4 [facility] [id number] [place] [address] [id number] Nov, [facility] [address] [id number] Nov, COPD exacerbation J44.1 and Hypoxia R09.02 [facility] [id number] [place] [address] [phone] Nov, Hyponatremia E87.1 and COPD mixed type J44.9 [facility] [id number] [place] [address] [phone] Nov, COPD mixed type J44.9 [facility] [id number] [place] [address] [phone] Nov, AVEL (obstructive sleep apnea) G47.33 and Hypoxia R09.02 [facility] [id number] [place] [address] [phone] Nov, [facility] [id number] [place] [address] [phone] Oct, [facility] [id number] [place] [address] [phone] Oct, COPD mixed type J44.9 ; Hypoxia R09.02 and AVEL (obstructive sleep apnea) G47.33 [facility] [address] [id number][place] [phone] Oct, [facility] [address] [place] [address] [phone] Aug, [facility] [id number] [place] [address] [phone] Aug, [facility] [id number] [place] [address] [id number] Aug, COPD mixed type J44.9 ; Hypoxia R09.02 ; Edema of lower extremity R60.0 ; Hyponatremia E87.1 and Tobacco abuse counseling Z71.6 [facility] [id number] [place] [address] [phone] Aug, COPD exacerbation J44.1 [facility] [id number] [place] [address] [phone] Aug, [facility] [address] [id number][place] [phone] Aug, [facility] [address] [id number][place] [phone] Aug, [facility] [address] [id number], [place] [phone] Aug, COPD mixed type J44.9 and Hypoxia R09.02 [facility] [address] [id number] [place] [address] Jul [facility] [address] [facility] [id number][place] [phone] Jul, COPD exacerbation J44.1 and Hypoxia R09.02 [facility] [id number][place] [phone] Jul, COPD exacerbation J44.1 and Homeless Z59.0 [place] [id number], [place] [phone] Jul, COPD exacerbation J44.1 ; Hypoxia R09.02 ; Community acquired pneumonia, unspecified laterality J18.9 ; Tobacco abuse Z72.0 and Tobacco abuse counseling Z71.6 [facility] [id number] [place] [address] [id number] Jun, Simple chronic bronchitis J41.0 [facility] [id number] [place] [address] [phone] Jun, [facility] [address] [id number], [place] [phone] May, [facility] [id number] [place] [address] [phone] May, [facility] [address] [id number], [place] [phone] May, Simple chronic bronchitis J41.0 [facility] [id number] [place] [address] [phone] Apr, Grief reaction F43.20 and Simple chronic bronchitis J41.0 [facility] [address] [id number], [place] [phone] Apr, [facility] [id number], [place] [id number] Mar, COPD exacerbation J44.1 and Simple chronic bronchitis J41.0 [facility] [id number] [place] [address] [id number] Mar, Well woman exam with routine gynecological exam Z01.419 ; Screening breast examination Z12.31 ; Simple chronic bronchitis J41.0 ; Encounter for vaccination Z23 and Encounter for immunization Z23 [facility] [id number] [place] [address] [id number] Mar, Simple chronic bronchitis J41.0 ; Grief reaction F43.20 and COPD exacerbation J44.1 [facility] [id number] [place] [address] [id number] Feb, COPD exacerbation J44.1 [facility] [id number] [place] [address] [id number] Feb, [facility] [id number] [place] [address] [id number] Feb, Simple chronic bronchitis J41.0 [facility] [id number] [place] [address] [id number] January, Simple chronic bronchitis J41.0 ; Grief reaction F43.20 and COPD exacerbation J44.1 [facility] [id number] [place] [address] [phone] January, IMMUNIZATIONS No Known Immunizations SOCIAL HISTORY Never Assessed REASON FOR VISIT 1 month follow up on COPD, states she is breathing better. michelle Cool PLAN OF CARE Activity Details Follow Up 1 Months Reason:CHm COPD VITAL SIGNS Height 65 in 2017-05-18 Weight 145.2 lbs 2017-05-18 Temperature 98.6 degrees Fahrenheit 2017-05-18 Heart Rate 64 bpm 2017-05-18 Respiratory Rate 16 2017-05-18 Oximetry 89 % 2017-05-18 BMI 24.16 kg/m2 2017-05-18 Blood pressure systolic 116 mmHg 2017-05-18 Blood pressure diastolic 74 mmHg 2017-05-18 MEDICATIONS Medication Instructions Dosage Frequency Start Date End Date Duration Status Singulair 10 mg Orally Once a day 1 tablet in the evening 24h Mar, Active ProAir HFA 108 (90 Base) MCG/ACT Inhalation every 4 hrs 2 puffs as needed 4h January, Active Albuterol Sulfate (2.5 MG/3ML) 0.083% Inhalation Three times a day 3 ml 8h Active Spiriva Respimat 2.5 MCG/ACT Inhalation Once a day 2 puffs 24h Apr, Apr, 0 days Active ProAir HFA 108 (90 Base) MCG/ACT Inhalation every 4 hrs 2 puffs as needed 4h 0 Active Symbicort 160-4.5 MCG/ACT Inhalation Twice a day 2 puffs 12h Feb, Active RESULTS No Results PROCEDURES Procedure Date Ordered Result Body Site MEASURE BLOOD OXYGEN LEVEL May 18, 2017 NEB/MDI RX INITIAL May 18, 2017 INSTRUCTIONS MEDICATIONS ADMINISTERED No Known Medications MEDICAL (GENERAL) HISTORY Type Description Date Medical History chronic obstructive pulmonary disease (COPD) Medical History chronic bronchitis Medical History 09/05/17 in home sleep study:Obstructive sleep apnea-moderate and nocturnal hypoxemia. Surgical History Blood vessel removal from head 1982 Surgical History tubal ligation Hospitalization History bronchitis
--- OUTSIDE RECORDS SUMMARY | 2018-08-21 06:35 | XMS REPORT ---
Author Author BOB ALTMAN Organization [facility] Address [address] [place] [address] Care Team Providers Care Breastfeeding Educator Name Role Phone BOB ALTMAN Unavailable PROBLEMS Type Condition ICD9-CM Code VZZ56-NQ Code Onset Dates Condition Status SNOMED Code Problem AVEL (obstructive sleep apnea) G47.33 Active 36113298 Problem COPD mixed type J44.9 Active 47194493 Problem Simple chronic bronchitis J41.0 Active 42022728 Problem COPD exacerbation J44.1 Active 431807172 Problem Hypoxia R09.02 Active 267072759 Problem Grief reaction F43.20 Active 73809492 ALLERGIES No Information ENCOUNTERS Encounter Location Date [facility] [address] [id number] [place] [phone] Feb, [facility] [id number] [place] [address] [id number] January, COPD mixed type J44.9 [facility] [id number], [place] [phone] January, [facility] [id number], [place] [phone] January, [facility] [address]00565100[place], [place] [address] January, [facility] [id number], [place] [phone] Dec, [facility] [id number] [place] [address] [id number] Dec, [facility] [id number] [place] [address] [id number] Dec, Abdominal mass, LLQ (left lower quadrant) R19.04 [facility] [id number] [place] [address] [phone] Nov, Left lower quadrant pain R10.32 ; Abdominal mass, LLQ (left lower quadrant ) R19.04 ; Weight loss R63.4 ; COPD mixed type J44.9 and Hypoxia R09.02 [facility] [id number] [place] [address] [id number] Nov, [facility] [id number] [place] [address] [phone] Nov, COPD exacerbation J44.1 and Hypoxia R09.02 [facility] [id number] [place] [address] [id number] Nov, Hyponatremia E87.1 and COPD mixed type J44.9 [facility] [id number] [place] [address] [id number] Nov, COPD mixed type J44.9 [facility] [id number] [place] [address] [phone] Nov, AVEL (obstructive sleep apnea) G47.33 and Hypoxia R09.02 [facility] [id number] [place] [address] [phone] Nov, [facility] [id number] [place] [address] [id number] Oct, [facility] [id number] [place] [address] [id number] Oct, COPD mixed type J44.9 ; Hypoxia R09.02 and AVEL (obstructive sleep apnea) G47.33 [facility] [address] [id number] [place] [phone] Oct, [facility] [address]00565100[place] [phone] Aug, [facility] [address] [place] [address] [phone] Aug, [facility] [id number] [place] [address] [id number] Aug, COPD mixed type J44.9 ; Hypoxia R09.02 ; Edema of lower extremity R60.0 ; Hyponatremia E87.1 and Tobacco abuse counseling Z71.6 [facility] [address] [id number], [place] [id number] Aug, COPD exacerbation J44.1 [facility] [address] [id number], [place] [phone] Aug, [facility] [address] [id number], [place] [id number] Aug, [facility] [address] [id number], [place] [id number] Aug, [facility] [id number] [place] [address] [id number] Aug, COPD mixed type J44.9 and Hypoxia R09.02 [facility] [address] [id number] [place] [address] Jul [facility] [id number], [place] [id number] Jul, COPD exacerbation J44.1 and Hypoxia R09.[address] [id number] [place] [id number] Jul, COPD exacerbation J44.1 and Homeless Z59.0 [facility] [id number], [place] [id number] Jul, COPD exacerbation J44.1 ; Hypoxia R09.02 ; Community acquired pneumonia, unspecified laterality J18.9 ; Tobacco abuse Z72.0 and Tobacco abuse counseling Z71.6 [facility] [id number], [place] [phone] Jun, Simple chronic bronchitis J41.0 [facility] [address] [id number], [place] [phone] Jun, [facility] [id number], [place] [phone] May, [facility] [id number] [place] [address] [id number] May, [facility] [id number], [place] [phone] May, Simple chronic bronchitis J41.0 [facility] [id number], [place] [phone] Apr, Grief reaction F43.20 and Simple chronic bronchitis J41.0 [facility] [id number] [place] [address] [id number] Apr, [facility] [id number] [place] [address] [id number] Mar, COPD exacerbation J44.1 and Simple chronic bronchitis J41.0 [facility] [id number] [place] [address] [id number] Mar, Well woman exam with routine gynecological exam Z01.419 ; Screening breast examination Z12.31 ; Simple chronic bronchitis J41.0 ; Encounter for vaccination Z23 and Encounter for immunization Z23 [facility] [id number] [place] [address] [id number] Mar, Simple chronic bronchitis J41.0 ; Grief reaction F43.20 and COPD exacerbation J44.1 [facility] [id number] [place] [address] [id number] Feb, COPD exacerbation J44.1 [facility] [id number] [place] [address] [phone] Feb, [facility] [id number] [place] [address] [id number] Feb, Simple chronic bronchitis J41.0 [facility] [id number] [place] [address] [id number] January, Simple chronic bronchitis J41.0 ; Grief reaction F43.20 and COPD exacerbation J44.1 [facility] [id number] [place] [address] [phone] January, IMMUNIZATIONS No Known Immunizations SOCIAL HISTORY [...]
--- OUTSIDE RECORDS SUMMARY | 2018-08-21 06:35 | XMS REPORT ---
Author Author BOB ALTMAN Organization [facility] Address [address] [place] [address] Care Team Providers Care Oral And Maxillofacial Surgery Resident Name Role Phone BOB ALTMAN Unavailable PROBLEMS Type Condition ICD9-CM Code [id number] Code Onset Dates Condition Status SNOMED Code Problem Simple chronic bronchitis J41.0 Active 33995116 Problem COPD exacerbation J44.1 Active 590873618 Problem Grief reaction F43.20 Active 68745410 ALLERGIES No Known Allergies SOCIAL HISTORY Never Assessed PLAN OF CARE VITAL SIGNS MEDICATIONS Medication Instructions Dosage Frequency Start Date End Date Duration Status ProAir HFA 108 (90 Base) MCG/ACT Inhalation every 4 hrs 2 puffs as needed 4h Active Albuterol Sulfate (2.5 MG/3ML) 0.083% Inhalation Three times a day 3 ml 8h Active RESULTS No Results PROCEDURES No Known procedures IMMUNIZATIONS No Known Immunizations MEDICAL (GENERAL) HISTORY Type Description Date Medical History chronic obstructive pulmonary disease (COPD) Medical History chronic bronchitis Surgical History Blood vessel removal from head 1982 Surgical History tubal ligation Hospitalization History bronchitis
--- OUTSIDE RECORDS SUMMARY | 2018-08-21 06:35 | XMS REPORT ---
Author Author BOB ALTMAN Organization [facility] Address [address] [place] [address] Care Team Providers Care Freezer Tunnel Operator Name Role Phone BOB ALTMAN Unavailable PROBLEMS Type Condition ICD9-CM Code [id number] Code Onset Dates Condition Status SNOMED Code Problem Simple chronic bronchitis J41.0 Active 58778815 Problem COPD exacerbation J44.1 Active 856460509 Problem Grief reaction F43.20 Active 07114607 ALLERGIES No Known Allergies SOCIAL HISTORY Never Assessed PLAN OF CARE Activity Details Follow Up 1 Months or as indicated by lab Reason:CHM COPD and need WWE genoveva VITAL SIGNS Height 65 in 2017-02-16 Weight 147.6 lbs 2017-02-16 Temperature 97.7 degrees Fahrenheit 2017-02-16 Heart Rate 84 bpm 2017-02-16 Respiratory Rate 20 2017-02-16 Oximetry 91 % 2017-02-16 BMI 24.56 kg/m2 2017-02-16 Blood pressure systolic 118 mmHg 2017-02-16 Blood pressure diastolic 68 mmHg 2017-02-16 MEDICATIONS Medication Instructions Dosage Frequency Start Date End Date Duration Status Albuterol Sulfate (2.5 MG/3ML) 0.083% Inhalation Three times a day 3 ml 8h Active ProAir HFA 108 (90 Base) MCG/ACT Inhalation every 4 hrs 2 puffs as needed 4h January, 0 days Active Symbicort 160-4.5 MCG/ACT Inhalation Twice a day 2 puffs 12h January, January, 0 days Active ProAir HFA 108 (90 Base) MCG/ACT Inhalation every 4 hrs 2 puffs as needed 4h Active RESULTS No Results PROCEDURES Procedure Date Ordered Result Body Site MEASURE BLOOD OXYGEN LEVEL February 16, 2017 THER/PROPH/DIAG INJ, SC/IM February 16, 2017 SOLUMEDROL (UP TO 125 MG) February 16, 2017 IMMUNIZATIONS Vaccine Route Administration Date Status SOLUMEDROL (UP TO 125 MG) IM Intramuscular February 16, 2017 Administered MEDICAL (GENERAL) HISTORY Type Description Date Medical History chronic obstructive pulmonary disease (COPD) Medical History chronic bronchitis Surgical History Blood vessel removal from head 1982 Surgical History tubal ligation Hospitalization History bronchitis
--- OUTSIDE RECORDS SUMMARY | 2018-08-21 06:35 | XMS REPORT ---
Author Author BOB ALTMAN Organization [facility] Address [address] [place] [address] Care Team Providers Care Electronics Assembler And Tester Name Role Phone BOB ALTMAN Unavailable PROBLEMS Type Condition ICD9-CM Code EYW58-DO Code Onset Dates Condition Status SNOMED Code Problem AVEL (obstructive sleep apnea) G47.33 Active 64726906 Problem COPD mixed type J44.9 Active 12626741 Problem Simple chronic bronchitis J41.0 Active 72747052 Problem COPD exacerbation J44.1 Active 025186732 Problem Hypoxia R09.02 Active 269727834 Problem Grief reaction F43.20 Active 46855329 ALLERGIES No Information ENCOUNTERS Encounter Location Date Diagnosis [facility] [address] [id number] [phone] Feb, [facility] [id number] [address] [phone] January, COPD mixed type J44.9 [facility] [id number] [place] [phone] January, [facility] [id number] [place]END[place] [phone] January, [facility] [address]00565100[place] [address] January, [facility] [id number] [place] [phone] Dec, [facility] [id number] [address] [phone] Dec, [facility] [id number] [address] [id number] Dec, Abdominal mass, LLQ (left lower quadrant) R19.04 [facility] [id number] [address] [id number] Nov, Left lower quadrant pain R10.32 ; Abdominal mass, LLQ (left lower quadrant ) R19.04 ; Weight loss R63.4 ; COPD mixed type J44.9 and Hypoxia R09.02 [facility] [place] [id number] [address] [id number] Nov, [facility] [place] [id number] [address] [id number] Nov, COPD exacerbation J44.1 and Hypoxia R09.02 [facility] [place] [id number] [address] [id number] Nov, Hyponatremia E87.1 and COPD mixed type J44.9 [facility] [place] [id number] [address] [id number] Nov, COPD mixed type J44.9 [facility] [place] [id number] [address] [phone] Nov, AVEL (obstructive sleep apnea) G47.33 and Hypoxia R09.02 [facility] [place] [id number] [address] [id number] Nov, [facility] [place] [id number] [address] [id number] Oct, [facility] [place] [id number] [address] [id number] Oct, COPD mixed type J44.9 ; Hypoxia R09.02 and AVEL (obstructive sleep apnea) G47.33 [facility] [address] [id number], [place] [phone] Oct, [facility] [place] [address]00565100[place] [phone] Aug, [facility] [id number] [address] [phone] Aug, [facility] [place] [id number] [address] [id number] Aug, COPD mixed type J44.9 ; Hypoxia R09.02 ; Edema of lower extremity R60.0 ; Hyponatremia E87.1 and Tobacco abuse counseling Z71.6 [facility] [address] [id number] [place] [phone] Aug, COPD exacerbation J44.1 [facility] [place] [address] [id number] [place] [phone] Aug, [facility] [address] [id number] [place] [phone] Aug, [facility] [address] [id number] B[place] [phone] Aug, [facility] [id number] [address] [id number] Aug, COPD mixed type J44.9 and Hypoxia R09.02 [facility] [place] [facility] [employer]CE [id number] [place] [address] Jul [facility] [id number] [place] [phone] Jul, COPD exacerbation J44.1 and Hypoxia R09.[address] [id number], [place] [phone] Jul, COPD exacerbation J44.1 and Homeless Z59.0 [facility] [id number] [place] [phone] Jul, COPD exacerbation J44.1 ; Hypoxia R09.02 ; Community acquired pneumonia, unspecified laterality J18.9 ; Tobacco abuse Z72.0 and Tobacco abuse counseling Z71.6 [facility] [id number] [place] [phone] Jun, [facility] [id number] [place] [phone] Jun, Simple chronic bronchitis J41.0 [facility] [id number] [place] [phone] May, [facility] [id number] [place] [address] [phone] May, [facility] [id number] [place] [phone] May, Simple chronic bronchitis J41.0 [facility] [id number] BEND, [place] [phone] Apr, Grief reaction F43.20 and Simple chronic bronchitis J41.0 [facility] [id number] [address] [id number] Apr, [facility] [id number] [address] [id number] Mar, COPD exacerbation J44.1 and Simple chronic bronchitis J41.0 [facility] [id number] [place] [address] [id number] Mar, Well woman exam with routine gynecological exam Z01.419 ; Screening breast examination Z12.31 ; Simple chronic bronchitis J41.0 ; Encounter for vaccination Z23 and Encounter for immunization Z23 [facility] [id number] [place] [address] [id number] Mar, Simple chronic bronchitis J41.0 ; Grief reaction F43.20 and COPD exacerbation J44.1 [facility] [id number] [address] [id number] Feb, COPD exacerbation J44.1 [facility] [id number] [address] [id number] Feb, [facility] [id number] [address] [phone] Feb, Simple chronic bronchitis J41.0 [facility] [id number] [place] [address] [phone] January, Simple chronic bronchitis J41.0 ; Grief reaction F43.20 and COPD exacerbation J44.1 [facility] [id number] [address] [id number] January, IMMUNIZATIONS No Known Immunizations SOCIAL HISTORY Never Assessed REASON FOR VISIT PALS received PLAN OF CARE VITAL SIGNS MEDICATIONS Unknown [...]
--- OUTSIDE RECORDS SUMMARY | 2018-08-21 06:35 | XMS REPORT ---
Author Author BOB ALTMAN Organization [facility] Address [address] [place] [address] Care Team Providers Care Bank Reconciliator Name Role Phone BOB ALTMAN Unavailable PROBLEMS Type Condition ICD9-CM Code XXC46-LF Code Onset Dates Condition Status SNOMED Code Problem AVEL (obstructive sleep apnea) G47.33 Active 73803081 Problem COPD mixed type J44.9 Active 85199457 Problem Simple chronic bronchitis J41.0 Active 22326632 Problem COPD exacerbation J44.1 Active 926932870 Problem Hypoxia R09.02 Active 653764422 Problem Grief reaction F43.20 Active 48667630 ALLERGIES No Information ENCOUNTERS Encounter Location Date Diagnosis [id number] [id number], [place] [phone] Dec, [id number] [place] [address] [phone] Dec, [place] [id number] [place] [address] [phone] Dec, [facility] [id number] [place] [address] [phone] Dec, Abdominal mass, LLQ (left lower quadrant) R19.04 [facility] [id number] [place] [address] [id number] Nov, Left lower quadrant pain R10.32 ; Abdominal mass, LLQ (left lower quadrant ) R19.04 and Weight loss R63.4 [facility] [id number] [place] [address] [id number] Nov, [facility] [id number] [place] [address] [id number] Nov, COPD exacerbation J44.1 and Hypoxia R09.02 [place] [id number] [place] [address] [id number] Nov, Hyponatremia E87.1 and COPD mixed type J44.9 [facility] [place] [id number] [place] [address] [id number] Nov, COPD mixed type J44.9 [facility] [place] [id number] [place] [address] [id number] Nov, AVEL (obstructive sleep apnea) G47.33 and Hypoxia R09.02 [facility] [place] [address] [id number] [place] [address] [id number] Nov, [facility] [address] [id number] [place] [address] [id number] Oct, [facility] [address] [id number] [place] [address] [id number] Oct, COPD mixed type J44.9 ; Hypoxia R09.02 and AVEL (obstructive sleep apnea) G47.33 [facility] [address] AVPrattville Baptist [id number][place] [phone] Oct, [facility] [place] [id number] [place] [address] [id number] Aug, [facility] [place] [id number] [place] [address] [id number] Aug, [facility] [id number] [place] [address] [phone] Aug, COPD mixed type J44.9 ; Hypoxia R09.02 ; Edema of lower extremity R60.0 ; Hyponatremia E87.1 and Tobacco abuse counseling Z71.6 [facility] [place] [id number] [place] [address] [id number] Aug, COPD exacerbation J44.1 [facility] [place] [id number] [place] [address] [id number] Aug, [facility] [address] [id number] [place] [address] [id number] Aug, [facility] [address] [id number] [place] [address] [id number] Aug, [facility] [place] [id number] [place] [address] [id number] Aug, COPD mixed type J44.9 and Hypoxia R09.02 [facility] ARMIDA [facility] [id number] [place] [address] Jul [facility] [place] [id number] [place] [address] [id number] Jul, COPD exacerbation J44.1 and Hypoxia R09.02 [facility] [address] [id number], [place] [phone] Jul, COPD exacerbation J44.1 and Homeless Z59.0 [facility] [id number] [place] [address] [id number] Jul, COPD exacerbation J44.1 ; Hypoxia R09.02 ; Community acquired pneumonia, unspecified laterality J18.9 ; Tobacco abuse Z72.0 and Tobacco abuse counseling Z71.6 [facility] [id number] [place] [address] [phone] Jun, [facility] [place] [id number] [place] [address] [phone] Jun, Simple chronic bronchitis J41.0 [facility] [address] [id number] [place] [address] [id number] May, [facility] [id number] [place] [address] [id number] May, [facility] [id number] [place] [address] [phone] May, Simple chronic bronchitis J41.0 [facility] [id number] [place] [address] [id number] Apr, Grief reaction F43.20 and Simple chronic bronchitis J41.0 [facility] [id number] [place] [address] [id number] Apr, [facility] [id number] [place] [address] [id number] Mar, COPD exacerbation J44.1 and Simple chronic bronchitis J41.0 [facility] [id number] [place] [address] [id number] Mar, Well woman exam with routine gynecological exam Z01.419 ; Screening breast examination Z12.31 ; Simple chronic bronchitis J41.0 ; Encounter for vaccination Z23 and Encounter for immunization Z23 [facility] [id number] [place] [id number] Mar, Simple chronic bronchitis J41.0 ; Grief reaction F43.20 and COPD exacerbation J44.1 [facility] [id number] [place] [phone] Feb, COPD exacerbation J44.1 [facility] [address] [place] [address] [id number] Feb, [facility] [address] [place] [address] [id number] Feb, Simple chronic bronchitis J41.0 [address] [id number] [place] [address] [id number] January, Simple chronic bronchitis J41.0 ; Grief reaction F43.20 and COPD exacerbation J44.1 [address]00565100[place] [phone] January, IMMUNIZATIONS No Known Immunizations SOCIAL HISTORY Never Assessed REASON FOR VISIT med refill PLAN OF CARE VITAL SIGNS MEDICATIONS Medication Instructions Dosage Frequency Start Date End Date Duration Status ProAir HFA 108 (90 Base) MCG/ACT Inhalation every 4 hrs 2 puffs as needed 4h January, 0 days Active Symbicort 160-4.5 MCG/ACT Inhalation Twice a day 2 puffs 12h Feb, 0 days Active RESULTS No Results PROCEDURES [...]
--- OUTSIDE RECORDS SUMMARY | 2018-08-21 06:35 | XMS REPORT ---
Author Author BOB ALTMAN Organization [facility] Address [address] [place] [address] Care Team Providers Care Hairspring Truing Inspector Name Role Phone BOB ALTMAN Unavailable PROBLEMS Type Condition ICD9-CM Code ADZ46-UH Code Onset Dates Condition Status SNOMED Code Problem AVEL (obstructive sleep apnea) G47.33 Active 99968051 Problem COPD mixed type J44.9 Active 74831350 Problem Simple chronic bronchitis J41.0 Active 40217495 Problem COPD exacerbation J44.1 Active 239732193 Problem Hypoxia R09.02 Active 415916992 Problem Grief reaction F43.20 Active 10604983 ALLERGIES No Information ENCOUNTERS Encounter Location Date Diagnosis [facility] [address] [phone] January, [facility] [id number] [place] [address] [id number] Dec, [place] [address] [id number] Dec, [facility] [id number] [place] [address] [id number] Dec, Abdominal mass, LLQ (left lower quadrant) R19.04 [facility] [address] [id number] Nov, Left lower quadrant pain R10.32 ; Abdominal mass, LLQ (left lower quadrant ) R19.04 and Weight loss R63.4 [facility] [address] [id number] Nov, [place] [address] [id number] Nov, COPD exacerbation J44.1 and Hypoxia R09.[address] [place] [id number] Nov, Hyponatremia E87.1 and COPD mixed type J44.9 [facility] [place] [id number] [place] [address] [id number] Nov, COPD mixed type J44.9 [facility] [address] [id number] [place] [address] [id number] Nov, AVEL (obstructive sleep apnea) G47.33 and Hypoxia R09.02 [facility] [address] [id number] [place] [address] [id number] Nov, [facility] [address] [id number] [place] [address] [id number] Oct, [facility] [id number] [place] [address] [id number] Oct, COPD mixed type J44.9 ; Hypoxia R09.02 and AVEL (obstructive sleep apnea) G47.33 [facility] [address] AVBibb Medical [id number], [place] [phone] Oct, [facility] [id number] [place] [address] [id number] Aug, [facility] [id number] [place] [address] [id number] Aug, [facility] [place] [address] [id number] Aug, COPD mixed type J44.9 ; Hypoxia R09.02 ; Edema of lower extremity R60.0 ; Hyponatremia E87.1 and Tobacco abuse counseling Z71.6 [facility] [place] [id number] [place] [address] [id number] Aug, COPD exacerbation J44.1 [facility] [address] [id number] [place] [address] [id number] Aug, [facility] [id number] [place] [address] [id number] Aug, [facility] [address] [id number] [place] [address] [id number] Aug, [facility] [id number] [place] [address] [id number] Aug, COPD mixed type J44.9 and Hypoxia R09.02 [facility] ARMIDA [facility] COMMERCE [id number] [place] [address] Jul [facility] [place] [id number] [place] [phone] Jul, COPD exacerbation J44.1 and Hypoxia R09.02 [facility] [id number][place] [id number] Jul, COPD exacerbation J44.1 and Homeless Z59.0 [facility] [id number] [place] [address] [id number] Jul, COPD exacerbation J44.1 ; Hypoxia R09.02 ; Community acquired pneumonia, unspecified laterality J18.9 ; Tobacco abuse Z72.0 and Tobacco abuse counseling Z71.6 [facility] [id number] [place] [address] [id number] Jun, [facility] [id number] [place] [address] [id number] Jun, Simple chronic bronchitis J41.0 [facility] [id number] [place] [address] [id number] May, [facility] [id number] [place] [address] [id number] May, [facility] [id number] [place] [address] [id number] May, Simple chronic bronchitis J41.0 [facility] [id number] [place] [address] [id number] Apr, Grief reaction F43.20 and Simple chronic bronchitis J41.0 [facility] [id number] [place] [address] [id number] Apr, [facility] [id number] [place] [address] [id number] Mar, COPD exacerbation J44.1 and Simple chronic bronchitis J41.0 [facility] [id number] [place] [address] [id number] Mar, Well woman exam with routine gynecological exam Z01.419 ; Screening breast examination Z12.31 ; Simple chronic bronchitis J41.0 ; Encounter for vaccination Z23 and Encounter for immunization Z23 [address] [place] [address] [id number] Mar, Simple chronic bronchitis J41.0 ; Grief reaction F43.20 and COPD exacerbation J44.1 [facility] [address] [place] [address] [id number] Feb, COPD exacerbation J44.1 [place] [id number] [place] [address] [id number] Feb, [address] [place] [address] [id number] Feb, Simple chronic bronchitis J41.0 [place] [id number] [place] [address] [id number] January, Simple chronic bronchitis J41.0 ; Grief reaction F43.20 and COPD exacerbation J44.1 [address] [place] [address] [id number] January, IMMUNIZATIONS No Known Immunizations SOCIAL HISTORY [...]
[2018-08-21 06:43] VITALS: BP 106/61
[2018-08-21] MEDS ORDERED: LIDOCAINE PF 1% 2 ML AMP IR PRN (06:45)
[2018-08-21] MEDS ORDERED: POVIDONE (BETADINE) OPHTH SOLN 5% 30 ML OP ONE (06:45)
[2018-08-21] MEDS ORDERED: MOXIFLOXACIN OPHTH SOLN 5 MG/ML 0.3 ML SYRINGE OP ONE (06:45)
[2018-08-21] MEDS ORDERED: TIMOLOL MALEATE 0.5% 5 ML (TIMOPTIC) BTL OU PRN (06:45)
[2018-08-21] MEDS: TETRACAINE 0.5% OPHTH SOLN 4 ML BTL (SINGLE DOSE ONLY) OU PRN ×4 (06:46→07:03)
[2018-08-21] MEDS: CYCLOPENTOLATE 1% (CYCLOGYL) 2 ML DROPS OP SCH ×3 (06:53→07:03)
[2018-08-21] MEDS: PHENYLEPHRINE 10% OPHTH (NEO-SYN) 5 ML BTL OU SCH ×3 (06:53→07:03)
[2018-08-21] MEDS ORDERED: MIDAZOLAM 2 MG/2 ML (VERSED) VIAL ONE (07:56)
--- NOTE | 2018-08-21 08:02 | Ophthalmologist Pre-Op Note ---
Pre-Operative Progress Note H&P Reviewed The H&P was reviewed, patient examined and no changes noted. Date H&P Reviewed: Aug 21, 2018 Time H&P Reviewed: 08:02 Pre-Op Dx Cataract, Left Eye STEPH TRUONG MD Aug 21, 2018 08:02
--- NOTE | 2018-08-21 08:26 | Ophthalmology Operative Report ---
Cataract removal/placement IOL PREOPERATIVE DIAGNOSIS: Cataract Left Eye POSTOPERATIVE DIAGNOSIS: Cataract Left Eye PROCEDURE: Cataract removal and placement of posterior chamber implant, left eye SURGEON: Farhat Truong ANESTHESIA: Topical with sedation COMPLICATIONS: None ESTIMATED BLOOD LOSS: Minimal DESCRIPTION OF PROCEDURE: After proper informed consent was obtained, the patient, a 53 female, was taken to the Operating Room and the left eye was anesthetized with tetracaine. The left eye was then prepped and draped in the usual manner. A wire lid speculum was placed. A paracentesis was made at the left hand position. Preservative free lidocaine was injected into the anterior chamber followed by viscoelastic. A clear corneal incision was made in the temporal position. A capsulorrhexis was preformed and the central nuclear and cortical material were removed. The posterior capsule was polished and an Jamal 23.0 AU00T0 was placed into the capsular bag. The residual viscoelastic was aspirated and balanced saline solution was injected into the anterior chamber. Moxifloxacin was injected into the anterior chamber. The wound was checked and found to be water tight. The patient tolerated the procedure well without complications. FARHAT TRUONG MD Aug 21, 2018 08:26
[2018-08-21] MEDS ORDERED: acetaZOLAMIDE ER 500 MG CAP (DIAMOX SEQUELS) PO ONE (08:30)
[2018-08-21 08:45] VITALS: BP 127/91
--- NOTE | 2018-08-21 10:46 | Anesthesia-General Post-Op ---
MAC Patient Condition Mental Status/LOC: Same as Preop Cardiovascular: Satisfactory Nausea/Vomiting: Absent Respiratory: Satisfactory Pain: Controlled Complications: Absent Post Op Complications Complications None Follow Up Care/Instructions Patient Instructions None needed. Anesthesiology Discharge Order Discharge Order Patient is doing well, no complaints, stable vital signs, no apparent adverse anesthesia problems. No complications reported per nursing. DAYANA CHUA CRNA Aug 21, 2018 10:46
== END 2018-08-21 08:45 | disposition home or self-care (01) ==
LOC: SDC 06:24
PROVIDERS: ATTEND Specialist
DX: H25.12 Age-related nuclear cataract, left eye (principal); F17.200 Nicotine dependence, unspecified, uncomplicated; Z85.3 Personal history of malignant neoplasm of breast; Z80.8 Family history of malignant neoplasm of other organs or systems

== ENCOUNTER 2018-09-09 06:16 | Outpatient (CLI) | payer MEDICAID ==
[~2018-09-09] VITALS: Ht 165.1 cm; Wt 62.1 kg
== END 2018-09-10 13:11 ==
LOC: PREOP 06:16
PROVIDERS: ATTEND Specialist
DX: Z01.818 Encounter for other preprocedural examination (principal)

== ENCOUNTER 2018-09-11 07:29 | Day surgery (SDC) | payer MEDICAID ==
[~2018-09-11] VITALS: Ht 165.1 cm; Wt 62.1 kg
[2018-09-11 07:33] VITALS: BP 116/75
[2018-09-11] MEDS ORDERED: TIMOLOL MALEATE 0.5% 5 ML (TIMOPTIC) BTL OU PRN (07:45)
[2018-09-11] MEDS ORDERED: MOXIFLOXACIN OPHTH SOLN 5 MG/ML 0.3 ML SYRINGE OP ONE (07:45)
[2018-09-11] MEDS ORDERED: LIDOCAINE PF 1% 2 ML AMP IR PRN (07:45)
[2018-09-11] MEDS ORDERED: POVIDONE (BETADINE) OPHTH SOLN 5% 30 ML OP ONE (07:45)
[2018-09-11] MEDS: TETRACAINE 0.5% OPHTH SOLN 4 ML BTL (SINGLE DOSE ONLY) OU PRN ×4 (07:48→08:15)
[2018-09-11] MEDS: CYCLOPENTOLATE 1% (CYCLOGYL) 2 ML DROPS OP SCH ×3 (07:57→08:15)
[2018-09-11] MEDS: PHENYLEPHRINE 10% OPHTH (NEO-SYN) 5 ML BTL OU SCH ×3 (07:57→08:15)
[2018-09-11] MEDS ORDERED: acetaZOLAMIDE ER 500 MG CAP (DIAMOX SEQUELS) PO ONE (09:00)
--- OUTSIDE RECORDS SUMMARY | 2018-09-11 09:08 | XMS REPORT ---
Author Author LUIS ENRIQUE HOOD [facility] Address [address] [place] [address] Care Team Providers Care Quality Systems Specialist Name Role Phone ERWIN LUIS ENRIQUE Unavailable PROBLEMS Type Condition ICD9-CM Code [id number] Code Onset Dates Condition Status SNOMED Code Problem Cataract H26.9 Active 692908329 Problem AVEL (obstructive sleep apnea) G47.33 Active 09282114 Problem COPD mixed type J44.9 Active 12789022 ALLERGIES No Information ENCOUNTERS Encounter Location Date Diagnosis [facility] [id number] [place] [address] [phone] Aug, [facility] [address] [id number] Aug, COPD mixed type J44.9 ; AVEL (obstructive sleep apnea) G47.33 ; General medical examination Z00.00 ; Cataract H26.9 and Encounter for immunization Z23 [facility] [address] [id number] May, [facility] [id number] [place] [address] [id number] 24 May, 2018 [facility] [id number] [place] [address] [phone] May, COPD mixed type J44.9 [facility] [id number] [place] [address] [phone] May, [facility] [id number] [place] [address] [phone] Apr, [facility] [id number] [place] [address] [phone] Mar, Dental caries K02.9 [facility] [id number] [place] [address] [phone] Mar, [facility] [address] [id number][place] [phone] Mar, Dental examination Z01.20 [facility] [address]005[address], [place] [address] 25[address] Feb, [facility] [id number] [place] [phone] January, COPD mixed type J44.9 [facility] [id number] [place] [phone] January, [facility] [id number] [place] [phone] January, [facility] [address] [facility] [id number] [address] 2546 January, [facility] [id number] [place] [phone] Dec, [facility] [id number] [place] [phone] Dec, [facility] [address] [id number] [phone] Dec, Abdominal mass, LLQ (left lower quadrant) R19.04 [facility] [id number] [place] [address] [phone] Nov, Left lower quadrant pain R10.32 ; Abdominal mass, LLQ (left lower quadrant ) R19.04 ; Weight loss R63.4 ; COPD mixed type J44.9 and Hypoxia R09.02 [facility] [id number] [place] [phone] Nov, [facility] [id number] [place] [phone] Nov, COPD exacerbation J44.1 and Hypoxia R09.02 [facility] [id number] [place] [address] [phone] Nov, Hyponatremia E87.1 and COPD mixed type J44.9 [facility] [id number] [place] [phone] Nov, COPD mixed type J44.9 [facility]00565100[place] [phone] Nov, AVEL (obstructive sleep apnea) G47.33 and Hypoxia R09.02 [facility] [id number] [place] [address] [phone] Nov, [facility] [id number] [place] [phone] Oct, [facility] [place] [id number] [place] [address] [phone] Oct, COPD mixed type J44.9 ; Hypoxia R09.02 and AVEL (obstructive sleep apnea) G47.33 [facility] [address]00565100[place] [phone] Oct, [facility] [id number] [place] [address] [phone] Aug, [facility] [id number] [place] [address] [id number] Aug, [facility] [id number] [place] [address] [id number] Aug, COPD mixed type J44.9 ; Hypoxia R09.02 ; Edema of lower extremity R60.0 ; Hyponatremia E87.1 and Tobacco abuse counseling Z71.6 [facility] [id number] [place] [address] [phone] Aug, COPD exacerbation J44.1 [facility] [address] [place] [address] [phone] Aug, [facility] [address] [place] [address] [phone] Aug, [facility] [id number] [place] [phone] Aug, [facility] [address] [place] [address] [phone] Aug, COPD mixed type J44.9 and Hypoxia R09.02 [facility] [place] [facility] [id number] [place] [address] Jul [facility] [address] [place] [address] [id number] Jul, COPD exacerbation J44.1 and Hypoxia R09.02 [address] [facility] [place] [id number][place] [phone] Jul, COPD exacerbation J44.1 and Homeless Z59.0 [facility] [id number] [place] [address] [phone] Jul, COPD exacerbation J44.1 ; Hypoxia R09.02 ; Community acquired pneumonia, unspecified laterality J18.9 ; Tobacco abuse Z72.0 and Tobacco abuse counseling Z71.6 [facility] [id number] [place] [address] [id number] Jun, [facility] [id number] [place] [address] [id number] Jun, Simple chronic bronchitis J41.0 [facility] [id number] [place] [address] [id number] May, [facility] [id number] [place] [address] [id number] May, [facility] [id number] [place] [address] [id number] May, Simple chronic bronchitis J41.0 [facility] [id number] [place] [address] [id number] Apr, Grief reaction F43.20 and Simple chronic bronchitis J41.0 [facility] [id number] [place] [address] [phone] Apr, [facility] [id number] [place] [address] [id number] Mar, COPD exacerbation J44.1 and Simple chronic bronchitis J41.0 [facility] [id number] [place] [address] [id number] Mar, Well woman exam with routine gynecological exam Z01.419 ; Screening breast examination Z12.31 ; Simple chronic bronchitis J41.0 ; Encounter for vaccination Z23 and Encounter for immunization Z23 [facility] [id number] [place] [address] [id number] Mar, Simple chronic bronchitis J41.0 ; Grief reaction F43.20 and COPD exacerbation J44.1 [facility] [address] [place] [address] [id number] [place] [id number] Feb, COPD exacerbation J44.1 [facility] [address] [facility] [id number] [place] [phone] Feb, [facility] [address] [id number] [place] [phone] Feb, Simple chronic bronchitis J41.0 [address] [id number] [phone] January, Simple chronic bronchitis J41.0 ; Grief reaction F43.20 and COPD exacerbation J44.[address] [id number] [place] [phone] January, IMMUNIZATIONS No Known Immunizations SOCIAL HISTORY Never Assessed REASON FOR VISIT Medication refill request / Symbicort PLAN OF CARE VITAL SIGNS MEDICATIONS Unknown Medications RESULTS No Results PROCEDURES No Known procedures INSTRUCTIONS MEDICATIONS ADMINISTERED No Known Medications MEDICAL (GENERAL) HISTORY Type Description Date Medical History chronic obstructive pulmonary disease (COPD) Medical History chronic bronchitis Medical History 09/05/17 in home sleep study:Obstructive sleep apnea-moderate and nocturnal hypoxemia. Medical History Grief reaction Medical History Hypoxia Surgical History Blood vessel removal from head 1982 Surgical History tubal ligation Surgical History cataract-lens implants 07/2018 Hospitalization History bronchitis
--- OUTSIDE RECORDS SUMMARY | 2018-09-11 09:08 | XMS REPORT ---
Author Author LUIS ENRIQUE HOOD [facility] Address [address] [place] [address] Care Team Providers Care Coat Repair Inspector Name Role Phone ERWIN LUIS ENRIQUE Unavailable PROBLEMS Type Condition ICD9-CM Code JXG10-MY Code Onset Dates Condition Status SNOMED Code Problem Cataract H26.9 Active 198217122 Problem AVEL (obstructive sleep apnea) G47.33 Active 45742033 Problem COPD mixed type J44.9 Active 09971974 ALLERGIES No Information ENCOUNTERS Encounter Location Date Diagnosis [facility] [id number] [place] [address] [id number] Aug, COPD mixed type J44.9 [facility] [id number] [place] [address] [id number] Aug, [facility] [id number] [place] [address] [id number] Aug, COPD mixed type J44.9 ; AVEL (obstructive sleep apnea) G47.33 ; General medical examination Z00.00 ; Cataract H26.9 and Encounter for immunization Z23 [facility] [id number] [place] [address] [id number] May, [facility] [id number] [place] [address] [id number] May, [facility] [id number] [place] [address] [id number] May, COPD mixed type J44.9 [facility] [id number] [place] [address] [id number] May, [facility] [address]00565100[place] [address] Apr, [facility] [address] [facility] [address] [id number], [place] [phone] Mar, Dental caries K02.9 [facility] [address] [facility] [id number] [place] [address] Mar, [facility]00565100[place] [phone] Mar, Dental examination Z01.20 [facility] [address]00565100[place] [address] Feb, [facility] [id number] [place] [address] [id number] January, COPD mixed type J44.9 [facility] [id number] [place] [address] [id number] January, [facility] [id number] [place] [address] [id number] January, [facility] [address] [facility] [id number] [place] [address] January, [facility] [id number] [place] [address] [id number] Dec, [facility] [id number] [place] [address] [phone] Dec, [facility] [id number] [place] [address] [id number] Dec, Abdominal mass, LLQ (left lower quadrant) R19.04 [facility] [id number], [place] [phone] Nov, Left lower quadrant pain R10.32 ; Abdominal mass, LLQ (left lower quadrant ) R19.04 ; Weight loss R63.4 ; COPD mixed type J44.9 and Hypoxia R09.02 [facility] [id number], [place] [phone] Nov, [facility] [id number] [place] [address] [id number] Nov, COPD exacerbation J44.1 and Hypoxia R09.02 [facility] [id number] [place] [address] [id number] Nov, Hyponatremia E87.1 and COPD mixed type J44.9 [facility] [address] [id number] [id number] Nov, COPD mixed type J44.9 [facility] [address] [id number], [place] [phone] Nov, AVEL (obstructive sleep apnea) G47.33 and Hypoxia R09.02 [facility] [address] [id number], [place] [phone] Nov, [facility] [address] [id number], [place] [phone] Oct, [facility] [id number], [place] [id number] Oct, COPD mixed type J44.9 ; Hypoxia R09.02 and AVEL (obstructive sleep apnea) G47.33 [facility] [address] [id number], [place] [phone] Oct, [facility] [id number], [place] [id number] Aug, [facility] [id number], [place] [id number] Aug, [facility] [id number], [place] [id number] Aug, COPD mixed type J44.9 ; Hypoxia R09.02 ; Edema of lower extremity R60.0 ; Hyponatremia E87.1 and Tobacco abuse counseling Z71.6 [facility] [id number], [place] [phone] Aug, COPD exacerbation J44.1 [facility] [id number], [place] [id number] Aug, [facility] [address] [facility] [id number], [place] [phone] Aug, [facility] [id number], [place] [id number] Aug, [facility] [id number], [place] [phone] Aug, COPD mixed type J44.9 and Hypoxia R09.02 [facility] [place] [address] [place], [place] [address] [id number] [place] [address] Jul [facility] [id number], [place] [id number] Jul, COPD exacerbation J44.1 and Hypoxia R09.02 [facility] [address] [facility] [address] [id number], [place] [phone] Jul, COPD exacerbation J44.1 and Homeless Z59.0 [place] [id number] [place] [address] [id number] Jul, COPD exacerbation J44.1 ; Hypoxia R09.02 ; Community acquired pneumonia, unspecified laterality J18.9 ; Tobacco abuse Z72.0 and Tobacco abuse counseling Z71.6 [place] [id number] [place] [address] [phone] Jun, Simple chronic bronchitis J41.0 [place] [id number] [place] [address] [id number] Jun, [place] [id number] [place] [address] [id number] May, [facility] [id number] [place] [address] [id number] May, [place] [id number] [place] [address] [id number] May, Simple chronic bronchitis J41.0 [facility] [id number] [place] [address] [id number] Apr, Grief reaction F43.20 and Simple chronic bronchitis J41.0 [facility] [id number] [place] [address] [id number] Apr, [facility] [id number] [place] [address] [id number] Mar, COPD exacerbation J44.1 and Simple chronic bronchitis J41.0 [id number] [place] [address] [id number] Mar, Well woman exam with routine gynecological exam Z01.419 ; Screening breast examination Z12.31 ; Simple chronic bronchitis J41.0 ; Encounter for vaccination Z23 and Encounter for immunization Z23 [place] [id number] [place] [address] [id number] Mar, Simple chronic bronchitis J41.0 ; Grief reaction F43.20 and COPD exacerbation J44.1 [facility] [address] [facility] [id number], [place] [id number] Feb, COPD exacerbation J44.1 [facility] [address] [id number], [place] [id number] Feb, [facility] [address] [facility] [id number], [place] [id number] Feb, Simple chronic bronchitis J41.0 [facility] [id number], [place] [id number] January, Simple chronic bronchitis J41.0 ; Grief reaction F43.20 and COPD exacerbation J44.1 [facility] [address] [facility] [id number], [place] [id number] January, IMMUNIZATIONS No Known Immunizations SOCIAL HISTORY Never Assessed REASON FOR VISIT med refill PLAN OF CARE VITAL SIGNS MEDICATIONS Medication Instructions Dosage Frequency Start Date End Date Duration Status Spiriva HandiHaler 18 MCG Inhalation Once a day 1 capsule 24h 30 days Active Singulair 10 mg Orally Once a day 1 tablet in the evening 24h Mar, 30 days Active ProAir HFA 108 (90 Base) MCG/ACT Inhalation every 4 hrs PRN 2 puffs as needed 30 days Active Symbicort 160-4.5 MCG/ACT Inhalation Twice a day 2 puffs 12h Feb, 30 days Active RESULTS No Results PROCEDURES No [...]
--- OUTSIDE RECORDS SUMMARY | 2018-09-11 09:08 | XMS REPORT ---
Author Author LUIS ENRIQUE HOOD Organization [facility] Address [address] [place] [address] Care Team Providers Care Custom Seamstress Name Role Phone LUIS ENRIQUE HOOD Unavailable PROBLEMS Type Condition ICD9-CM Code [id number] Code Onset Dates Condition Status SNOMED Code Problem Cataract H26.9 Active 308312764 Problem AVEL (obstructive sleep apnea) G47.33 Active 94869154 Problem COPD mixed type J44.9 Active 12940677 ALLERGIES No Information ENCOUNTERS Encounter Location Date Diagnosis [facility] [address] [id number] Aug, General medical examination Z00.00 [facility] [address] [id number] Aug, COPD mixed type J44.9 [facility] [address] [id number] Aug, [facility] [address] [id number] Aug, COPD mixed type J44.9 ; AVEL (obstructive sleep apnea) G47.33 ; General medical examination Z00.00 ; Cataract H26.9 and Encounter for immunization Z23 [facility] [id number] [place] [address] [id number] May, [facility] [id number] [place] [address] [id number] May, [facility] [address] [id number] May, COPD mixed type J44.9 [facility] [address] [id number] May, [facility] [id number] [place] [phone] Apr, [facility] [address] [facility] [address] [id number] [place] [phone] Mar, Dental caries K02.9 [facility] [address], [place] [address] Mar, [facility] [address] [facility] [address] [id number] [place] [phone] Mar, Dental examination Z01.20 [facility] [id number] [place] [phone]- [phone] Feb, [facility] [place] [id number] [place] [address] [id number] January, COPD mixed type J44.9 [facility] [place] [id number] [place] [address] [id number] January, [facility] [place] [id number] [place] [address] [id number] January, [facility] [address], [place] [address] January, [facility] [place] [id number] [place] [address] [phone] Dec, [facility] [place] [id number] [place] [address] [id number] Dec, [facility] [place] [id number] [place] [address] [id number] Dec, Abdominal mass, LLQ (left lower quadrant) R19.04 [facility] [place] [id number] [place] [address] [phone] Nov, Left lower quadrant pain R10.32 ; Abdominal mass, LLQ (left lower quadrant ) R19.04 ; Weight loss R63.4 ; COPD mixed type J44.9 and Hypoxia R09.02 [facility] [place] [id number] [place] [address] [id number] Nov, [facility] [place] [id number] [place] [address] [phone] Nov, COPD exacerbation J44.1 and Hypoxia R09.02 [facility] [place] [id number] [place] [address] [phone] Nov, Hyponatremia E87.1 and COPD mixed type J44.9 [facility] [place] [address] [id number] [place] [address] [id number] Nov, COPD mixed type J44.9 [facility] [address] [id number] [place] [address] [id number] Nov, AVEL (obstructive sleep apnea) G47.33 and Hypoxia R09.02 [facility] [id number] [place] [address] [id number] Nov, [facility] [address] [id number] [place] [address] [phone] Oct, [facility] [id number] [place] [address] [id number] Oct, COPD mixed type J44.9 ; Hypoxia R09.02 and AVEL (obstructive sleep apnea) G47.33 [facility] [address] [phone] Oct, [facility] [id number] [place] [address] [phone] Aug, [facility] [place] [id number] [place] [address] [id number] Aug, [facility] [id number] [place] [address] [id number] Aug, COPD mixed type J44.9 ; Hypoxia R09.02 ; Edema of lower extremity R60.0 ; Hyponatremia E87.1 and Tobacco abuse counseling Z71.6 [facility] [place] [id number] [place] [address] [id number] Aug, COPD exacerbation J44.1 [facility] [place] [address] [id number] [place] [address] [id number] Aug, [facility] [address] [id number] [place] [address] [id number] Aug, [facility] [address] [id number] [place] [address] [id number] Aug, [facility] [place] [id number] [place] [address] [id number] Aug, COPD mixed type J44.9 and Hypoxia R09.02 [facility] [address] [id number] [place] [address] Jul [facility] [place] [id number] [place] [address] [id number] Jul, COPD exacerbation J44.1 and Hypoxia R09.02 [facility] [address] [id number] [place] [id number] Jul, COPD exacerbation J44.1 and Homeless Z59.0 [facility] [place] [id number] [place] [address] [id number] Jul, COPD exacerbation J44.1 ; Hypoxia R09.02 ; Community acquired pneumonia, unspecified laterality J18.9 ; Tobacco abuse Z72.0 and Tobacco abuse counseling Z71.6 [facility] [place] [id number] [place] [address] [phone] Jun, [facility] [place] [id number] [place] [address] [id number] Jun, Simple chronic bronchitis J41.0 [facility] [address] [id number] [place] [address] [id number] May, [facility] [place] [id number] [place] [address] [phone] May, [facility] [place] [id number] [place] [address] [id number] May, Simple chronic bronchitis J41.0 [facility] [id number] [place] [address] [id number] Apr, Grief reaction F43.20 and Simple chronic bronchitis J41.0 [facility] [place] [id number] [place] [address] [id number] Apr, [facility] [id number] [place] [address] [id number] Mar, COPD exacerbation J44.1 and Simple chronic bronchitis J41.0 [facility] [place] [id number] [place] [address] [id number] Mar, Well woman exam with routine gynecological exam Z01.419 ; Screening breast examination Z12.31 ; Simple chronic bronchitis J41.0 ; Encounter for vaccination Z23 and Encounter for immunization Z23 [facility] [id number] [phone] Mar, Simple chronic bronchitis J41.0 ; Grief reaction F43.20 and COPD exacerbation J44.1 [facility] [id number], [place] [phone] Feb, COPD exacerbation J44.1 [id number] [place] [address] [phone] Feb, [facility] [address] [id number] Feb, Simple chronic bronchitis J41.0 [address] [place] [address] [id number] January, Simple chronic bronchitis J41.0 ; Grief reaction F43.20 and COPD exacerbation J44.1 [address] [phone] January, IMMUNIZATIONS No Known Immunizations SOCIAL HISTORY Never Assessed REASON FOR VISIT bloodwork [facility] PLAN OF CARE Activity Details Pending Test LIPID PANEL Pending Test CMP Pending Test CBC Pending Test THYROID ANALYZER VITAL SIGNS MEDICATIONS Unknown Medications RESULTS No Results PROCEDURES Procedure Date Ordered Result Body Site LAB NOT BILLED BY [facility] Aug 30, 2018 VENIPUNCT, ROUTINE* Aug 30, 2018 INSTRUCTIONS MEDICATIONS ADMINISTERED No Known Medications [...]
--- OUTSIDE RECORDS SUMMARY | 2018-09-11 09:08 | XMS REPORT ---
Author Author LUIS ENRIQUE HOOD [facility] Address [address] [place] [address] Care Team Providers Care Package Reinspector Name Role Phone ERWIN LUIS ENRIQUE Unavailable PROBLEMS Type Condition ICD9-CM Code [id number] Code Onset Dates Condition Status SNOMED Code Problem COPD with acute exacerbation J44.1 Active 290481311 Problem Cataract H26.9 Active 469356797 Problem AVEL (obstructive sleep apnea) G47.33 Active 00176772 Problem COPD mixed type J44.9 Active 21120733 ALLERGIES No Known Allergies ENCOUNTERS Encounter Location Date Diagnosis [facility] [address] [id number] Aug, COPD with acute exacerbation J44.1 [facility] [address] [id number] Aug, General medical examination Z00.00 [facility] [address] [id number] Aug, COPD mixed type J44.9 [facility] [address] [id number] Aug, [facility] [address] [id number] Aug, COPD mixed type J44.9 ; AVEL (obstructive sleep apnea) G47.33 ; General medical examination Z00.00 ; Cataract H26.9 and Encounter for immunization Z23 [facility] [address] [id number] May, [facility] [address] [id number] May, [facility] [address] [id number] May, COPD mixed type J44.9 [facility] [address] [id number] May, [facility] [address]005[address], [place] [address] Apr, [facility] [address] [id number] [phone] Mar, Dental caries K02.9 [facility] [address], [place] [address] Mar, [facility] [address] [id number] [phone] Mar, Dental examination Z01.20 [facility] [id number] [place] [phone] Feb, [facility] [id number] [place] [address] [id number] January, COPD mixed type J44.9 [facility] [id number] [place] [address] [id number] January, [facility] [id number] [place] [address] [id number] January, [facility] [address] [place] [address] 2546 January, [facility] [id number] [place] [address] [id number] Dec, [facility] [place] [id number], [place] [id number] Dec, [facility] [id number] [place] [address] [id number] Dec, Abdominal mass, LLQ (left lower quadrant) R19.04 [facility] [id number] [place] [address] [id number] Nov, Left lower quadrant pain R10.32 ; Abdominal mass, LLQ (left lower quadrant ) R19.04 ; Weight loss R63.4 ; COPD mixed type J44.9 and Hypoxia R09.02 [facility] [id number], [place] [id number] Nov, [facility] [id number] [place] [address] [id number] Nov, COPD exacerbation J44.1 and Hypoxia R09.02 [facility] [id number] [place] [address] [id number] Nov, Hyponatremia E87.1 and COPD mixed type J44.9 [facility] [id number] [place] [address] [id number] Nov, COPD mixed type J44.9 [facility] [place] [id number] [place] [address] [id number] Nov, AVEL (obstructive sleep apnea) G47.33 and Hypoxia R09.02 [facility] [place] [id number] [place] [address] [id number] Nov, [facility] [id number] [place] [address] [id number] Oct, [facility] [id number] [place] [address] [id number] Oct, COPD mixed type J44.9 ; Hypoxia R09.02 and AVEL (obstructive sleep apnea) G47.33 [facility] [address] [id number][place] [phone] Oct, [facility] [place] [id number] [place] [address] [id number] Aug, [facility] [place] [id number] [place] [address] [id number] Aug, [facility] [id number] [place] [address] [id number] Aug, COPD mixed type J44.9 ; Hypoxia R09.02 ; Edema of lower extremity R60.0 ; Hyponatremia E87.1 and Tobacco abuse counseling Z71.6 [facility] [place] [id number] [place] [address] [id number] Aug, COPD exacerbation J44.1 [facility] [place] [id number] [place] [address] [id number] Aug, [facility] [place] [id number] [place] [address] [id number] Aug, [facility] [id number], [place] [id number] Aug, [facility] [id number] [place] [address] [id number] Aug, COPD mixed type J44.9 and Hypoxia R09.02 [facility] [address] [id number] [place] [address] Jul [facility] [place] [id number] [place] [address] [id number] Jul, COPD exacerbation J44.1 and Hypoxia R09.02 [facility] [place] [address] [facility] [id number][place] [phone] Jul, COPD exacerbation J44.1 and Homeless Z59.0 [facility] [id number] [place] [address] [id number] Jul, COPD exacerbation J44.1 ; Hypoxia R09.02 ; Community acquired pneumonia, unspecified laterality J18.9 ; Tobacco abuse Z72.0 and Tobacco abuse counseling Z71.6 [facility] [id number] [place] [address] [id number] Jun, [place] [id number] [place] [address] [id number] Jun, Simple chronic bronchitis J41.0 [facility] [id number] [place] [address] [id number] May, [facility] [id number] [place] [address] [id number] May, [place] [id number] [place] [address] [id number] May, Simple chronic bronchitis J41.0 [facility] [id number] [place] [address] [id number] Apr, Grief reaction F43.20 and Simple chronic bronchitis J41.0 [facility] [id number] [place] [address] [id number] Apr, [facility] [id number] [place] [address] [id number] Mar, COPD exacerbation J44.1 and Simple chronic bronchitis J41.0 [place] [id number], [place] [id number] Mar, Well woman exam with routine gynecological exam Z01.419 ; Screening breast examination Z12.31 ; Simple chronic bronchitis J41.0 ; Encounter for vaccination Z23 and Encounter for immunization Z23 [facility] [place] [id number], [place] [id number] Mar, Simple chronic bronchitis J41.0 ; Grief reaction F43.20 and COPD exacerbation J44.1 [facility] [place] [id number], [place] [id number] Feb, COPD exacerbation J44.1 [facility] [id number] [place] [address] [id number] Feb, [facility] [place] [id number] [place] [address] [id number] Feb, Simple chronic bronchitis J41.0 [facility] [id number] [place] [address] [id number] January, Simple chronic bronchitis J41.0 ; Grief reaction F43.20 and COPD exacerbation J44.1 [facility] [id number], [place] [id number] January, IMMUNIZATIONS Vaccine Route Administration Date Status FLULAVAL QUAD 0.5ML (6 MO AND UP) 2018 IM Intramuscular Aug 26, 2018 Administered SOCIAL HISTORY Never Assessed REASON FOR VISIT med refill Fany RN PLAN OF CARE Activity Details Follow Up 3 months or as indicated by lab Reason:[facility] VITAL SIGNS Height 65 in 2018-08-26 Weight 142.6 lbs 2018-08-26 Temperature 97.9 degrees Fahrenheit 2018-08-26 Heart Rate 84 bpm 2018-08-26 Respiratory Rate 18 2018-08-26 Oximetry w/ oxygen:96 % 2018-08-26 BMI 23.73 kg/m2 2018-08-26 Blood pressure systolic 118 mmHg 2018-08-26 Blood pressure diastolic 64 mmHg 2018-08-26 MEDICATIONS Medication Instructions Dosage Frequency Start Date End Date Duration Status Symbicort 160-4.5 MCG/ACT Inhalation Twice a day 2 puffs 12h 12 Feb, 2017 30 days Active Spiriva HandiHaler 18 MCG Inhalation Once a day 1 capsule 24h 30 days Active Potassium Chloride ER 20 MEQ Orally Once a day 1 tablet with food 24h 30 day(s) Active PrednisoLONE Acetate 1 % Ophthalmic Twice a day 1 drop into affected eye 12h Active Furosemide 20 mg Orally Once a day as needed 1 tablet Active Singulair 10 mg Orally Once a day 1 tablet in the evening 24h Mar, 30 days Active Ofloxacin 0.3 % Ophthalmic Four times a day 1 drop into affected eye 6h Active Albuterol Sulfate (2.5 MG/3ML) 0.083% Inhalation Three times a day 3 ml 8h 30 days Active BromSite 0.075 % Ophthalmic Twice a day 1 drop into affected eye 12h Active ProAir HFA 108 (90 Base) MCG/ACT Inhalation every 4 hrs PRN 2 puffs as needed 30 days Active Benzonatate 100 MG Orally Three times a day 1 capsule as needed 8h Active RESULTS No Results PROCEDURES Procedure Date Ordered Result Body Site FLULAVAL QUAD 0.5ML (6 MO AND UP) 2017Aug 26, 2018 SINGLE IMMUNIZATION ADMIN Aug 26, 2018 INSTRUCTIONS MEDICATIONS ADMINISTERED No Known Medications [...]
[2018-09-11] MEDS ORDERED: MIDAZOLAM 2 MG/2 ML (VERSED) VIAL ONE (09:29)
--- NOTE | 2018-09-11 09:34 | Ophthalmologist Pre-Op Note ---
Pre-Operative Progress Note H&P Reviewed The H&P was reviewed, patient examined and no changes noted. Date H&P Reviewed: Sep 11, 2018 Time H&P Reviewed: 09:34 Pre-Op Dx Cataract, Right Eye STEPH TRUONG MD Sep 11, 2018 09:34
--- NOTE | 2018-09-11 10:00 | Ophthalmology Operative Report ---
Cataract removal/placement IOL PREOPERATIVE DIAGNOSIS: Cataract Right Eye POSTOPERATIVE DIAGNOSIS: Cataract Right Eye PROCEDURE: Cataract removal and placement of posterior chamber implant, right eye SURGEON: Farhat Truong ANESTHESIA: Topical with sedation COMPLICATIONS: None ESTIMATED BLOOD LOSS: Minimal DESCRIPTION OF PROCEDURE: After proper informed consent was obtained, the patient, a 53 female, was taken to the Operating Room and the right eye was anesthetized with tetracaine. The right eye was then prepped and draped in the usual manner. A wire lid speculum was placed. A paracentesis was made at the left hand position. Preservative free lidocaine was injected into the anterior chamber followed by viscoelastic. A clear corneal incision was made in the temporal position. A capsulorrhexis was preformed and the central nuclear and cortical material were removed. The posterior capsule was polished and Jamal [id number] 22.0 IOL was placed into the capsular bag. The residual viscoelastic was aspirated and balanced saline solution was injected into the anterior chamber. Moxifloxacin was injected into the anterior chamber. The wound was checked and found to be water tight. The patient tolerated the procedure well without complications. FARHAT TRUONG MD Sep 11, 2018 10:00
[2018-09-11 10:07] VITALS: BP 116/75
--- NOTE | 2018-09-11 14:13 | Anesthesia-General Post-Op ---
MAC Patient Condition Mental Status/LOC: Same as Preop Cardiovascular: Satisfactory Nausea/Vomiting: Absent Respiratory: Satisfactory Pain: Controlled Complications: Absent Post Op Complications Complications None Follow Up Care/Instructions Patient Instructions None needed. Anesthesiology Discharge Order Discharge Order Patient is doing well, no complaints, stable vital signs, no apparent adverse anesthesia problems. No complications reported per nursing. SHIRA RAY CRNA Sep 11, 2018 14:13
== END 2018-09-11 10:07 | disposition home or self-care (01) ==
LOC: SDC 07:29
PROVIDERS: ATTEND Specialist
DX: H25.11 Age-related nuclear cataract, right eye (principal); F17.290 Nicotine dependence, other tobacco product, uncomplicated; J44.9 Chronic obstructive pulmonary disease, unspecified; Z80.3 Family history of malignant neoplasm of breast; Z80.8 Family history of malignant neoplasm of other organs or systems; Z79.899 Other long term (current) drug therapy

== ENCOUNTER → 2019-06-17 | Outpatient (CLI) | payer MEDICAID ==
[2019-06-17 14:58] LABS: ABG BASE EXCESS 2.3 MMOL/L (-2.5-2.5); ABG OXYGEN SATURATION 94 % (94-100); ABG PCO2 38 MMHG (35-45); ABG PH 7.45 (7.37-7.43); ABG PO2 68 MMHG (79-93); ABG TCO2 27.3 MMOL/L (21.0-31.0); ALLENS TEST YES-POS; INSPIRED O2 ROOM AIR; PATIENT TEMP 36.6; VENTILATOR NO
--- NOTE | 2019-06-17 16:00 | NUR ---
PATIENT WAS ON RA FOR OVER 60 MINS AND O2 SAT WAS 94%; PATIENT STARTING WALKING ON RA WITH O2 SAT 94% AFTER 2 MINS PATIENT STARTED TO DESAT AND DROPPED TO 85% ON RA; O2 WAS ADDED AND PATIENT CONTINUED TO WALK WITH O2 ON AND IT TOOK 6 L TKS ATLEAST 90%. NO O2 WAS NEEDED AT REST BUT ON EXERTION PATIENT NEEDED 6 L NC
== END ==
LOC: RT 13:42
PROVIDERS: ATTEND Nurse Practitioner Family
DX: J30.9 Allergic rhinitis, unspecified (principal); J44.9 Chronic obstructive pulmonary disease, unspecified; G47.36 Sleep related hypoventilation in conditions classified elsewhere
CPT/HCPCS: 36600; 82805; 94761

== ENCOUNTER → 2019-10-08 | Outpatient (CLI) | payer MEDICAID ==
[~2019-10-08] MED LIST: RT-ALBUTEROL SULF 2.5 MG/3 ML PRE-MIX VIAL INH ONE
== END ==
LOC: RT 08:46
PROVIDERS: ATTEND Nurse Practitioner Family
DX: J44.9 Chronic obstructive pulmonary disease, unspecified (principal); J30.9 Allergic rhinitis, unspecified; G47.36 Sleep related hypoventilation in conditions classified elsewhere; Z72.0 Tobacco use
CPT/HCPCS: 94060; 94726; 94729

== ENCOUNTER → 2019-10-14 | Outpatient (CLI) | payer MEDICAID ==
--- NOTE | 2019-10-14 10:03 | Diagnostic Imaging Report ---
INDICATION: Chronic cough. TIME OF EXAM: 9:59 AM No prior studies are available for comparison. FINDINGS: The heart size is normal. The pulmonary vascularity is unremarkable. The lungs are clear. No infiltrate, effusion or pneumothorax is detected. IMPRESSION: No acute cardiopulmonary process is detected. Dictated by: Dictated on workstation # [id number]
== END ==
LOC: RAD 09:31
PROVIDERS: ATTEND Nurse Practitioner Family
DX: J42 Unspecified chronic bronchitis (principal); R09.02 Hypoxemia; G47.36 Sleep related hypoventilation in conditions classified elsewhere; Z72.0 Tobacco use
CPT/HCPCS: 71046

== ENCOUNTER → 2019-10-22 | Outpatient (CLI) | payer MEDICAID ==
[~2019-10-22] MED LIST changes: +HOLD METFORMIN - RECEIVED CONTRAST 20 ML VIAL IV SCH; +IOHEXOL 350 MG/ML 100 ML (OMNIPAQUE 350) VIAL IV ONE; +NS 100 ML (IVPB) BAG IV ONE; -RT-ALBUTEROL SULF 2.5 MG/3 ML PRE-MIX VIAL INH ONE
[2019-10-22 09:55] LABS: BUN/CREATININE RATIO 5; CREATININE SERUM 0.59 MG/DL (0.60-1.30); GFR ESTIMATED > 60
--- NOTE | 2019-10-22 12:45 | Diagnostic Imaging Report ---
PROCEDURE: CT chest with contrast only. TECHNIQUE: Multiple contiguous axial images were obtained through the chest after administration of intravenous contrast. Auto Exposure Controls were utilized during the CT exam to meet ALARA standards for radiation dose reduction. INDICATION: Chronic cough. FINDINGS: There are no prior CT chest examinations available for comparison. The plain film examination of the chest performed on 10/14/2019 failed to show any sign of an acute abnormality. On this exam, there is no defect within the pulmonary arteries to indicate a pulmonary embolus. The aorta is not abnormally dilated and there is no sign of dissection. The heart size is within normal limits. Coronary artery calcifications are evident. There are mild emphysematous changes involving both lungs. There is no evidence for failure, pneumonia, or for pleural effusion to indicate an acute abnormality. There are few coarse interstitial densities in the left lung base. These may be related to mild chronic atelectasis/scar formation. There is no mediastinal or hilar adenopathy. The thyroid gland where visualized is unremarkable. The sections through the upper abdomen fail to show any sign of an acute abnormality. The adrenal glands are somewhat prominent but there is no focal mass involving either adrenal gland. The appearance of the liver does suggest fatty metamorphosis. The bone windows were unremarkable for a fracture or for a destructive lesion. IMPRESSION: 1. There are few coarse interstitial densities in the left lung base. These are more likely due to chronic atelectasis/scar formation than to an acute abnormality. There is no acute cardiopulmonary abnormality noted. In particular, there is no sign of a pulmonary embolus or of a dissection. 2. There are mild emphysematous changes involving both lungs. Dictated by: Dictated on workstation # [id number]
== END ==
LOC: RAD 09:31
PROVIDERS: ATTEND Nurse Practitioner Family
DX: J42 Unspecified chronic bronchitis (principal); J43.9 Emphysema, unspecified; R09.02 Hypoxemia; G47.36 Sleep related hypoventilation in conditions classified elsewhere; Z72.0 Tobacco use
CPT/HCPCS: 36415; 71260; 82565; 84520

== ENCOUNTER 2019-11-14 20:34 | Outpatient (CLI) | payer MEDICAID | END 2019-11-15 06:30 | disposition home or self-care (01) | LOC: SLEEP 20:34 | PROVIDERS: ATTEND Nurse Practitioner Family | DX: G47.10 Hypersomnia, unspecified (principal); G47.50 Parasomnia, unspecified; G47.36 Sleep related hypoventilation in conditions classified elsewhere; J44.9 Chronic obstructive pulmonary disease, unspecified; Z72.0 Tobacco use | CPT/HCPCS: 95810 ==

== ENCOUNTER → 2020-06-15 | Outpatient (CLI) | payer MEDICAID ==
--- NOTE | 2020-06-15 18:55 | Diagnostic Imaging Report ---
INDICATION: Routine screening. Comparison is made with prior mammogram from 05/11/2017. 2-D and 3-D bilateral screening mammography was performed with CAD. Scattered fibroglandular densities are identified bilaterally. No mass or malignant appearing microcalcifications are seen. Axillae are unremarkable. IMPRESSION: BI-RADS Category 1 No mammographic features suspicious for malignancy are identified. ACR BI-RADS Category 1: Negative. Result letter will be mailed to the patient. Note: At least 10% of breast cancer is not imaged by mammography. Dictated by: Dictated on workstation # [id number]
== END ==
LOC: RAD 09:47
PROVIDERS: ATTEND Nurse Practitioner Family
DX: Z12.31 Encounter for screening mammogram for malignant neoplasm of breast (principal)
CPT/HCPCS: 77063; 77067

== ENCOUNTER → 2020-11-15 | Outpatient (CLI) | payer MEDICAID ==
[~2020-11-15] MED LIST changes: +CATHETER FLUSH 10 ML SYR IV PRN
[2020-11-15 11:03] LABS: BUN/CREATININE RATIO 10; CREATININE SERUM 0.61 MG/DL (0.60-1.30); GFR ESTIMATED > 60
--- NOTE | 2020-11-15 13:41 | Diagnostic Imaging Report ---
EXAMINATION: CT Chest with intravenous contrast. TECHNIQUE: Multiple contiguous axial images were obtained through the chest after the uneventful administration of intravenous contrast. All CT scans use one or more of the following dose optimizing techniques: automated exposure control, MA and/or KvP adjustment based on a patient size and exam type, or iterative reconstruction. HISTORY: Dyspnea. COMPARISON: 10/22/2019 FINDINGS: There is no edema or pneumonia. No pleural effusion. No pneumothorax. No suspicious nodules. There is yqyc-jv-cbdvgyge upper lobe predominant centrilobular emphysema. There is mild bibasilar atelectasis or scarring. There is no axillary or supraclavicular lymphadenopathy. There is no mediastinal lymphadenopathy. Heart size is normal. There are mild coronary artery calcifications. No pericardial effusion. Aorta is normal in caliber. Limited views of the upper abdomen are unremarkable. There are no suspicious osseous lesions. IMPRESSION: 1. Ofam-yg-wyvbrqve upper lobe predominant centrilobular emphysema without acute abnormality in the chest. Dictated by: Dictated on workstation # [id number]
== END ==
LOC: RAD 10:20
PROVIDERS: ATTEND Nurse Practitioner Family
DX: J43.2 Centrilobular emphysema (principal)
CPT/HCPCS: 36415; 71260; 82565; 84520

== ENCOUNTER 2021-03-01 05:33 | Outpatient (CLI) | payer MEDICARE, MEDICAID ==
[~2021-03-01] VITALS: Ht 165 cm; Wt 72.6 kg
[2021-03-01] MEDS ORDERED: LORA10TA7 PO (11:06)
[2021-03-01] MEDS ORDERED: CYAN50TA3 PO (11:06)
[2021-03-01] MEDS ORDERED: ASCO100024 PO (11:06)
[2021-03-01] MEDS ORDERED: BUDE10.2 IH (11:06)
[2021-03-01] MEDS ORDERED: FLAX100032 PO (11:06)
[2021-03-01] MEDS ORDERED: NF-VITD400 PO (11:06)
[2021-03-01] MEDS ORDERED: ALB0.5V INH (11:06)
[2021-03-01] MEDS ORDERED: RT-ALBUINH IH (11:06)
[2021-03-01] MEDS ORDERED: MULT-1136 PO (11:06)
[2021-03-01] MEDS ORDERED: TRIA10.8 NS (11:06)
[2021-03-01] MEDS ORDERED: MONT10TA21 PO (11:06)
[2021-03-01] MEDS ORDERED: TIOT18CA2 IH (11:06)
== END 2021-03-01 15:51 | disposition home or self-care (01) ==
LOC: PREOP 05:33
PROVIDERS: ATTEND Surgery
DX: Z01.818 Encounter for other preprocedural examination (principal)

== ENCOUNTER 2021-03-08 09:32 | Day surgery (SDC) | payer MEDICARE, MEDICAID ==
[2021-03-08] VITALS (7 sets, daily range): BP systolic 115–136; BP diastolic 57–81
[~2021-03-08 09:32] MED LIST changes: +ALB0.5V INH; +ASCO100024 PO; +BUDE10.2 IH; -CATHETER FLUSH 10 ML SYR IV PRN; +CYAN50TA3 PO; +FLAX100032 PO; -HOLD METFORMIN - RECEIVED CONTRAST 20 ML VIAL IV SCH; -IOHEXOL 350 MG/ML 100 ML (OMNIPAQUE 350) VIAL IV ONE; +LORA10TA7 PO; +MONT10TA21 PO; +MULT-1136 PO; +NF-VITD400 PO; -NS 100 ML (IVPB) BAG IV ONE; +RT-ALBUINH IH; +TIOT18CA2 IH; +TRIA10.8 NS
[2021-03-08] MEDS ORDERED: LACTATED RINGERS 1,000 ML IV ONE (09:40)
[2021-03-08] MEDS ORDERED: LACTATED RINGERS 1,000 ML IV STA (09:42)
[2021-03-08] MEDS ORDERED: PROPOFOL INJECTION 50 ML IV ONE (10:39)
[2021-03-08] MEDS ORDERED: MIDAZOLAM 2 MG/2 ML (VERSED) VIAL ONE (11:08)
--- NOTE | 2021-03-08 11:42 | Progress Note-Post Operative ---
Post-Operative Progess Note Surgeon (s)/Fur Blowing Machine Attendant (s) Surgeon EDDY HUNT DO Fur Blowing Machine Attendant: na Pre-Operative Diagnosis screening colonoscopy Post-Operative Diagnosis colon polyps, diverticulosis Procedure & Operative Findings Date of Procedure 03/08/21 Procedure Performed/Findings colonoscopy c hot bx polypectomy, snare polypectomy x 2 Anesthesia Type per it program engagement director Estimated Blood Loss Estimated blood loss (mL): none Specimens/Packing Specimens Removed descending, sigmoid polyp x 2 EDDY HUNT DO Mar 08, 2021 11:42
--- NOTE | 2021-03-08 11:43 | Discharge Inst-Simple/Standard ---
Discharge Inst-Standard Patient Instructions/Follow Up Plan of Care/Instructions/FU: 2 weeks Raymond Activity as Tolerated: Yes Discharge Diet: Regular Diet EDDY HUNT DO Mar 08, 2021 11:43
--- NOTE | 2021-03-08 11:56 | Anesthesia-General Post-Op ---
MAC Patient Condition Mental Status/LOC: Same as Preop Cardiovascular: Satisfactory Nausea/Vomiting: Absent Respiratory: Satisfactory Pain: Controlled Complications: Absent Post Op Complications Complications None Follow Up Care/Instructions Patient Instructions None needed. Anesthesiology Discharge Order Discharge Order Patient is doing well, no complaints, stable vital signs, no apparent adverse anesthesia problems. No complications reported per nursing. AYAD HERZOG CRNA Mar 08, 2021 11:56
--- NOTE | 2021-03-08 15:43 | OPERATIVE REPORT ---
DATE OF SERVICE: 03/08/2021 PREOPERATIVE DIAGNOSIS: Screening colonoscopy. POSTOPERATIVE DIAGNOSIS: Colon polyps, diverticulosis. PROCEDURE: Colonoscopy with hot biopsy polypectomy x1 and snare polypectomy x2. SURGEON: Eddy Andrade DO ANESTHESIA: Per BUNDLE TIER. ESTIMATED BLOOD LOSS: None. COMPLICATIONS: None. INDICATIONS: The patient is a 55-year-old female needing screening colonoscopy. She understands risks and benefits of procedure and wished to proceed with procedure. Consent was signed in the chart. DESCRIPTION OF PROCEDURE: The patient was taken to the endoscopy suite, placed in left lateral recumbent position. Timeout was performed. Digital rectal exam was performed. No palpable polyps, masses or ulcerations. Scope was inserted in the rectum, advanced all the way to cecum with minimal difficulty. Prep was adequate. Scope was then slowly retracted back. There were no polyps, masses or ulcerations within the cecum, ascending, transverse colon. In the descending colon, small polyp was present, which hot biopsy polypectomy was performed. Scope was then continuously slowly retracted back into the sigmoid where there are some moderate amount of diverticulosis. A small polyp was present, which snare polypectomy was performed. This was obtained and suction. A large pedunculated polyp was present as well, which snare polypectomy was performed. This was suctioned and withdrawn so they would not go through the scope. Once removed, the scope was then reinserted and inserted in the rectum, advanced all the way to the point of the snare polypectomy was performed. Scope was then continuously slowly retracted back. No polyps, masses or ulcerations within the remainder of the sigmoid colon and in the rectum. Scope was retroflexed noting no other pathology. Scope was returned to its normal position, slowly withdrawn until completely removed. The patient tolerated procedure well without any complications. She was taken to recovery room in stable condition. RECOMMENDATIONS: The patient will need follow up on pathology. The patient will need repeat colonoscopy in one year to make sure everything has been eradicated. Any issues before that be seen at that time. Job ID: [id number] DocumentID: [id number] Dictated Date: 03/08/2021 11:45:34 Cracking Machine Operator Date: 03/08/2021 15:42:28 Dictated By: EDDY ANDRADE DO
== END 2021-03-08 12:25 | disposition home or self-care (01) ==
LOC: ENDO 09:32
PROVIDERS: ATTEND Surgery
DX: Z12.11 Encounter for screening for malignant neoplasm of colon (principal); D12.5 Benign neoplasm of sigmoid colon; K57.30 Diverticulosis of large intestine without perforation or abscess without bleeding; J44.9 Chronic obstructive pulmonary disease, unspecified; G47.33 Obstructive sleep apnea (adult) (pediatric); R56.9 Unspecified convulsions; F17.210 Nicotine dependence, cigarettes, uncomplicated; Z79.2 Long term (current) use of antibiotics; Z79.899 Other long term (current) drug therapy; Z99.81 Dependence on supplemental oxygen; Z79.51 Long term (current) use of inhaled steroids
CPT/HCPCS: 88305

== ENCOUNTER → 2021-04-25 | Outpatient (CLI) | payer MEDICARE, MEDICAID ==
[~2021-04-25] MED LIST changes: +CATHETER FLUSH 10 ML SYR IV PRN; +HOLD METFORMIN - RECEIVED CONTRAST 20 ML VIAL IV SCH; +IOHEXOL 350 MG/ML 100 ML (OMNIPAQUE 350) VIAL IV ONE; +NS 100 ML (IVPB) BAG IV ONE
[2021-04-25 07:40] LABS: CREATININE SERUM 0.61 MG/DL (0.60-1.30)
--- NOTE | 2021-04-25 09:14 | Diagnostic Imaging Report ---
PROCEDURE: CT abdomen and pelvis with contrast. TECHNIQUE: Multiple contiguous axial images were obtained through the abdomen and pelvis after administration of intravenous contrast. Auto Exposure Controls were utilized during the CT exam to meet ALARA standards for radiation dose reduction. All CT scans use one or more of the following dose optimizing techniques: automated exposure control, MA and/or KvP adjustment based on patient size and exam type or iterative reconstruction. INDICATION: Left lower quadrant abdominal wall mass. Patient reports this area has, larger and more painful. COMPARISON: None available. FINDINGS: LOWER THORAX: There is mild bibasilar scarring/atelectasis. Visualized heart is normal in size. LIVER: Normal. No acute pathology or focal lesion. GALLBLADDER: Normal. No calcified gallstone or evidence of acute cholecystitis. BILE DUCTS: No biliary ductal dilatation. SPLEEN: Normal. PANCREAS: Normal. No pancreatic ductal dilatation. ADRENAL GLANDS: No nodules. KIDNEYS AND URETERS: The kidneys are symmetric in size and demonstrate normal enhancement. There is no renal calculus or hydronephrosis. No suspicious mass. No abnormality in the visualized ureters. STOMACH AND BOWEL: There is a small hiatal hernia. No bowel obstruction. No inflammatory changes. There is mild diverticulosis of the sigmoid colon, without evidence of acute diverticulitis. APPENDIX: Normal. PELVIC ORGANS/BLADDER: Bladder is normal. The uterus is unremarkable. There is no suspicious adnexal mass or pelvic free fluid. PERITONEUM AND RETROPERITONEUM: No pneumoperitoneum. No abdominal free fluid or loculated collection. LYMPH NODES: No lymphadenopathy. VESSELS: Moderate atherosclerotic calcification. Abdominal aorta is nonaneurysmal. No venous thrombosis. ABDOMINAL WALL: There is a spigelian hernia involving left ventral abdominal wall inferiorly in the region of the left lower quadrant and pelvis. This contains only fat. There is no significant inflammatory changes in the herniated contents. The defect measures approximately 3 cm in transverse diameter. BONES: Multilevel degenerative changes involve the spine. No acute osseous abnormality. IMPRESSION: There is a fat-containing spigelian hernia involving the left ventral abdominal wall inferiorly. There is no herniation of bowel and no significant inflammatory change in the herniated contents to suggest strangulation. No acute abdominal or pelvic pathology. Chronic and incidental findings are detailed above. Dictated by: Dictated on workstation # [id number]
== END ==
LOC: RAD 08:45
PROVIDERS: ATTEND Surgery
DX: K43.9 Ventral hernia without obstruction or gangrene (principal); M47.9 Spondylosis, unspecified; I70.0 Atherosclerosis of aorta; K44.9 Diaphragmatic hernia without obstruction or gangrene
CPT/HCPCS: 36415; 74177; 82565; 84520

== ENCOUNTER 2021-05-05 19:07 | Outpatient (CLI) | payer MEDICARE, MEDICAID ==
[~2021-05-05 19:07] MED LIST changes: -CATHETER FLUSH 10 ML SYR IV PRN; -HOLD METFORMIN - RECEIVED CONTRAST 20 ML VIAL IV SCH; -IOHEXOL 350 MG/ML 100 ML (OMNIPAQUE 350) VIAL IV ONE; -NS 100 ML (IVPB) BAG IV ONE
== END 2021-05-06 06:15 | disposition home or self-care (01) ==
LOC: SLEEP 19:07
PROVIDERS: ATTEND Nurse Practitioner Family
DX: Z01.818 Encounter for other preprocedural examination (principal); G47.33 Obstructive sleep apnea (adult) (pediatric); G47.36 Sleep related hypoventilation in conditions classified elsewhere; J44.9 Chronic obstructive pulmonary disease, unspecified; J30.9 Allergic rhinitis, unspecified; F17.200 Nicotine dependence, unspecified, uncomplicated
CPT/HCPCS: 95811

== ENCOUNTER → 2021-05-25 | Outpatient (CLI) | payer MEDICARE, MEDICAID | LOC: CARD 10:12 | PROVIDERS: ATTEND Nurse Practitioner Family | DX: Z01.818 Encounter for other preprocedural examination (principal); I51.7 Cardiomegaly | CPT/HCPCS: 93306 ==

== ENCOUNTER → 2021-06-07 | Outpatient (CLI) | payer MEDICARE, MEDICAID ==
[2021-06-07 11:33] LABS: ABG BASE EXCESS 2.2 MMOL/L (-2.5-2.5); ABG OXYGEN SATURATION 98 % (94-100); ABG PCO2 43 MMHG (35-45); ABG PH 7.41 (7.37-7.43); ABG PO2 90 MMHG (79-93); ALLENS TEST POSITIVE; INSPIRED O2 3 L; PATIENT TEMP 36.6; VENTILATOR NO
== END ==
LOC: LAB 11:03
PROVIDERS: ATTEND Nurse Practitioner Family
DX: Z01.89 Encounter for other specified special examinations (principal)
CPT/HCPCS: 36600; 82805

== ENCOUNTER → 2021-07-13 | Outpatient (CLI) | payer MEDICARE, MEDICAID ==
--- NOTE | 2021-07-14 08:49 | Diagnostic Imaging Report ---
INDICATION: Routine screening. COMPARISON is made with prior mammograms from 06/15/2020 and 05/11/2017. 2-D and 3-D bilateral screening mammography was performed with CAD. Both breasts are primarily involutional. The parenchymal pattern is stable. No mass is identified. No malignant-appearing microcalcifications are seen. Axillae are unremarkable. IMPRESSION: BI-RADS Category 1 No mammographic features suspicious for malignancy are identified. ACR BI-RADS Category 1: Negative. Result letter will be mailed to the patient. Note: At least 10% of breast cancer is not imaged by mammography. Dictated by: Dictated on workstation # [id number]
== END ==
LOC: RAD 15:04
PROVIDERS: ATTEND Nurse Practitioner Family
DX: Z12.31 Encounter for screening mammogram for malignant neoplasm of breast (principal)
CPT/HCPCS: 77063; 77067

== ENCOUNTER 2021-07-19 06:29 | Outpatient (CLI) | payer MEDICARE, MEDICAID ==
[~2021-07-19] VITALS: Ht 165.1 cm; Wt 71.4 kg
[2021-07-19] MEDS ORDERED: FISH400C PO (14:23)
[2021-07-19] MEDS ORDERED: FLUT9.9S NS (14:23)
[2021-07-19] MEDS ORDERED: DOCU-163 PO (14:23)
[2021-07-19] MEDS ORDERED: AMOX1TAB11 PO (14:23)
[2021-07-19] MEDS ORDERED: CYAN500011 PO (14:23)
[2021-07-19] MEDS ORDERED: HYDR25TA4 PO (14:23)
[2021-07-19] MEDS ORDERED: ASCO-262 PO (14:23)
[2021-07-19] MEDS ORDERED: INUL1TAB4 PO (14:23)
[2021-07-19] MEDS ORDERED: MELA1TAB20 PO (14:23)
[2021-07-19] MEDS ORDERED: CHOL100048 PO (14:23)
[2021-07-19] MEDS ORDERED: SERT-412 PO (14:23)
== END 2021-07-19 14:25 | disposition home or self-care (01) ==
LOC: PREOP 06:29
PROVIDERS: ATTEND Surgery
DX: Z01.818 Encounter for other preprocedural examination (principal)

== ENCOUNTER 2021-07-28 05:50 | Day surgery (SDC) | payer MEDICARE, MEDICAID ==
[2021-07-28] VITALS (11 sets, daily range): BP systolic 98–155; BP diastolic 71–96
[~2021-07-28] VITALS: Ht 165.1 cm; Wt 71.4 kg
[~2021-07-28 05:50] MED LIST changes: +AMOX1TAB11 PO; +ASCO-262 PO; +CHOL100048 PO; +CYAN500011 PO; +DOCU-163 PO; +FISH400C PO; +FLUT9.9S NS; +HYDR25TA4 PO; +INUL1TAB4 PO; +MELA1TAB20 PO; +SERT-412 PO
[2021-07-28] MEDS ORDERED: ceFAZolin INJECTION 1,000 MG in WATER (STERILE) FOR INJECTION 10 ML IV ONE (06:15)
[2021-07-28] MEDS: LACTATED RINGERS 1,000 ML IV PRN ×2 (06:24→08:44)
[2021-07-28] MEDS ORDERED: LIDOCAINE/EPI 1%-1:100,000 (XYLOCAINE) 20ML ONE (07:05)
[2021-07-28] MEDS ORDERED: MIDAZOLAM 2 MG/2 ML (VERSED) VIAL ONE (07:49)
[2021-07-28] MEDS ORDERED: fentaNYL INJ 100 MCG/2 ML AMP ONE ×2 (07:49→09:33)
--- NOTE | 2021-07-28 07:52 | Progress Note-Pre Operative ---
Pre-Operative Progress Note H&P Reviewed The H&P was reviewed, patient examined and no changes noted. Date Seen by Provider: Jul 28, 2021 Time Seen by Provider: 07:44 Date H&P Reviewed: Jul 28, 2021 Time H&P Reviewed: 07:44 Pre-Operative Diagnosis: left spigelian hernia EDDY HUNT DO Jul 28, 2021 07:52
[2021-07-28] MEDS ORDERED: RT-ALBUTEROL SULF 2.5 MG/3 ML PRE-MIX VIAL ONE (07:53)
[2021-07-28] MEDS ORDERED: RT-ALBUTEROL SULF 2.5 MG/3 ML PRE-MIX VIAL INH ONE (08:00)
--- NOTE | 2021-07-28 09:27 | Progress Note-Post Operative ---
Post-Operative Progess Note Surgeon (s)/Blood Bank Laboratory Technician (s) Surgeon EDDY HUNT DO Blood Bank Laboratory Technician: Dr. Beebe to assist in retraction dissection and closure. Pre-Operative Diagnosis left spigelian hernia Post-Operative Diagnosis incarcerated spigelian hernia Procedure & Operative Findings Date of Procedure 07/28/21 Procedure Performed/Findings Laparoscopic incarcerated spigelian hernia repair c mesh Anesthesia Type general Estimated Blood Loss Estimated blood loss (mL): minimal Specimens/Packing Specimens Removed hernia sac EDDY HUNT DO Jul 28, 2021 09:27
[2021-07-28] MEDS ORDERED: DOCU-143 PO (09:28)
[2021-07-28] MEDS ORDERED: ACHD5005 PO (09:28)
--- NOTE | 2021-07-28 09:31 | Discharge Inst-Simple/Standard ---
Discharge Inst-Standard Discharge Medications New, Converted or Re-Newed RX: Transmitted to Pharmacy Patient Instructions/Follow Up Plan of Care/Instructions/FU: 2-3 weeks Raymond Activity as Tolerated: No Discharge Diet: Regular Diet Other Inst to Patient Follow up Appt: Make appointment for 2-3 weeks. Instructions: No lifting greater than 10 pounds. No strenuous activity. May shower in 24 hours, no tub bath or soaking. Use incentive spirometer at home as directed. No Smoking Skin/Wound Care: You have special glue over your incision that will fall off on it's own. Symptoms to Report: Appetite Changes, Extremity Discoloration, Numbness/Tingling, Swelling Increa sed, Bleeding Excessive, Eyesight Changes, Pain Increased, Urine Color Change, Constipation(Persistent), Fever over 101 degree F, Pain/Pressure in chest, Urinating Difficulty, Cough Up/Vomit Blood, Heart Beat Irreg/Pounding, Pain/Pressure in jaw, Vaginal Bleeding Increase, Cramps in feet or legs, Lightheadedness, Pain/Pressure in shoulder, Diarrhea(Persistent), Memory Changes Suddenly, Questions/Concerns, Weight gain consecutive days, Dizziness/Fainting, Nausea/Vomiting, Shortness of Breath, Weight gain over 2 pounds If questions or concerns contact your physician Or seek help at emergency department. EDDY HUNT DO Jul 28, 2021 09:31
[2021-07-28] MEDS ORDERED: SEVOFLURANE (ULTANE) 15 ML INHAL SOLN ONE (09:32)
[2021-07-28] MEDS ORDERED: ONDANSETRON 4 MG/2 ML (SDV) Z0FRAN ONE (09:32)
[2021-07-28] MEDS ORDERED: LIDOCAINE PF 2% 5 ML (XYLOCAINE) VIAL ONE (09:32)
[2021-07-28] MEDS ORDERED: ROCURONIUM 10 MG/ML 5 ML SYRINGE IV ONE (09:32)
[2021-07-28] MEDS ORDERED: GLYCOPYRROLATE 0.2 MG/ML (ROBINUL) 2 ML VIAL ONE (09:32)
[2021-07-28] MEDS ORDERED: NEOSTIGMINE 3 MG/3 ML VIAL ONE (09:32)
[2021-07-28] MEDS ORDERED: proPOfol 200 MG/20 ML (DIPRIVAN) VIAL IV ONE (09:32)
[2021-07-28] MEDS ORDERED: SUGAMMADEX 500 MG/5 ML VIAL (BRIDION) IV ONE (09:41)
[2021-07-28] MEDS ORDERED: HYDROcodone/APAP 5 MG/325 MG (LORTAB) TAB PO ONE (11:00)
[2021-07-28] MEDS ORDERED: HYDROcodone/APAP 5 MG/325 MG (LORTAB) TAB ONE (11:00)
--- NOTE | 2021-07-28 17:46 | OPERATIVE REPORT ---
DATE OF SERVICE: PREOPERATIVE DIAGNOSIS: Left spigelian hernia. POSTOPERATIVE DIAGNOSIS: Incarcerated left spigelian hernia. PROCEDURE: Left incarcerated of spigelian hernia repair with mesh. SURGEON: Eddy Andrade DO ALMOND SORTER: Dr. Beebe, assisted in retraction, dissection and closure. ANESTHESIA: General. ESTIMATED BLOOD LOSS: Minimal. COMPLICATIONS: None. INDICATIONS: The patient is a 56-year-old female with spigelian hernia in the left lower quadrant. The patient is having significant discomfort with it. She has got a CT scan that demonstrated this as well. The patient with significant respiratory issues which causing her high risk, which the patient does understand this and wishes to proceed. Consent was signed in the chart. DESCRIPTION OF PROCEDURE: The patient was taken to the operating suite. She was prepped and draped in sterile fashion. Timeout was performed. Local anesthetic was infiltrated in the left upper quadrant and 11 blade scalpel was used to make a small skin incision and cautery was used to dissect down to the fascia, which was then scored, the muscle was divided and the posterior sheath was then divided and the abdomen was then entered. The balloon trocar was inserted and a pneumoperitoneum was achieved. Scope was inserted multiple adhesions in the left upper quadrant, which were able to be navigated through and under direct visualization of laparoscope, two 5 mm trocars were placed on the right side of the abdomen. Scope was then changed to 5 mm scope. LigaSure was used to take down the adhesions in the left upper quadrant. The spigelian hernia was present. Using a LigaSure and retractors, the hernia contents were divided and the sac was taken down. The peritoneum was taken down as well. At this point, a small incision was made in the left lower quadrant over the hernia, which the external oblique muscle was then divided and the defect was then located and the defect was closed using 1-0 looped PDS. The external oblique was then closed using 2-0 Vicryl in a running fashion. A 4-1/2 inch round Echo Ventralight mesh was then inserted in the abdomen and grasped through the incision with a Loc-Renan. The balloon was insufflated and the SecureStrap Tacker was used to tack the mesh in place. Once tacked in place, the peritoneum was then brought back up on top of the mesh after the balloon was removed and this was tacked to the mesh as well covering. The abdomen was then desufflated, the trocars were removed. The 12 mm fascial defect in the left upper quadrant was then closed using 0 Vicryl. The skin was then closed using 4-0 Monocryl in a subcuticular fashion. The areas were then washed and dried and Skin Affix was placed over the incisions. The patient tolerated procedure well without any complications, taken to recovery room in stable condition. Job ID: [id number] DocumentID: [id number] Dictated Date: 07/28/2021 12:50:08 Senior Contracts Administrator Date: 07/28/2021 17:45:45 Dictated By: EDDY ANDRADE DO
== END 2021-07-28 11:40 | disposition home or self-care (01) ==
LOC: SDC 05:50
PROVIDERS: ATTEND Surgery
DX: K43.6 Other and unspecified ventral hernia with obstruction, without gangrene (principal); J44.9 Chronic obstructive pulmonary disease, unspecified; G62.9 Polyneuropathy, unspecified; Z79.899 Other long term (current) drug therapy; Z87.891 Personal history of nicotine dependence; Z99.81 Dependence on supplemental oxygen
CPT/HCPCS: 49653; 87081; 94640; 94760; C1781

== ENCOUNTER → 2021-08-30 | Outpatient (CLI) | payer MEDICARE, MEDICAID ==
[~2021-08-30] MED LIST changes: +ACHD5005 PO; +DOCU-143 PO
--- NOTE | 2021-08-30 13:35 | Diagnostic Imaging Report ---
EXAMINATION: CT chest without contrast. TECHNIQUE: Multiple contiguous axial images were obtained through the chest without the use of intravenous contrast. All CT scans use one or more of the following dose optimizing techniques: Automated exposure control, MA and/or KvP adjustment based on patient size and exam type or iterative reconstruction. HISTORY: Chronic obstructive pulmonary disease. COMPARISON: 11/15/2020. FINDINGS: There is no edema or pneumonia. No pleural effusion. No pneumothorax. No suspicious nodules. There is moderate centrilobular emphysema. There is no axillary or supraclavicular lymphadenopathy. There is no mediastinal lymphadenopathy. Heart size is normal. There are moderate coronary artery calcifications. No pericardial effusion. Aorta is normal in caliber. Limited views of the upper abdomen are unremarkable. There are no suspicious osseous lesions. IMPRESSION: 1. Moderate centrilobular emphysema without acute abnormality. Dictated by: Dictated on workstation # [id number]
== END ==
LOC: RAD 12:45
PROVIDERS: ATTEND Nurse Practitioner Family
DX: J43.2 Centrilobular emphysema (principal)
CPT/HCPCS: 71250

== ENCOUNTER 2022-04-12 06:20 | Outpatient (CLI) | payer MEDICARE, MEDICAID ==
[~2022-04-12] VITALS: Ht 165.1 cm; Wt 73.9 kg
[2022-04-12] MEDS ORDERED: FLUT1BLS15 IH (09:25)
[2022-04-12] MEDS ORDERED: FLAX100032 PO (09:25)
== END 2022-04-12 09:26 | disposition home or self-care (01) ==
LOC: PREOP 06:20
PROVIDERS: ATTEND Surgery
DX: Z01.818 Encounter for other preprocedural examination (principal)

== ENCOUNTER 2022-04-25 11:21 | Day surgery (SDC) | payer MEDICARE, MEDICAID ==
[~2022-04-25] VITALS: Ht 165 cm; Wt 73.9 kg
[~2022-04-25 11:21] MED LIST changes: +FLUT1BLS15 IH
[2022-04-25] MEDS ORDERED: LACTATED RINGERS 1,000 ML IV ONE (11:28)
[2022-04-25] MEDS ORDERED: LACTATED RINGERS 1,000 ML IV STA (11:32)
[2022-04-25 11:50] VITALS: BP 131/82
--- NOTE | 2022-04-25 13:16 | Progress Note-Pre Operative ---
Pre-Operative Progress Note Date of Available H&P: Apr 03, 2022 Date H&P Reviewed: Apr 25, 2022 Time H&P Reviewed: 13:16 History & Physical: H&P Reviewed, Patient Examed, No changes noted Pre-Operative Diagnosis: hx polyps EDDY HUNT DO Apr 25, 2022 13:16
== END 2022-04-25 13:30 | disposition home or self-care (01) ==
LOC: ENDO 11:21
PROVIDERS: ATTEND Surgery
DX: Z86.010 Personal history of colon polyps (principal); Z53.8 Procedure and treatment not carried out for other reasons; Z87.891 Personal history of nicotine dependence; J44.9 Chronic obstructive pulmonary disease, unspecified; Z99.2 Dependence on renal dialysis; G47.33 Obstructive sleep apnea (adult) (pediatric); Z79.899 Other long term (current) drug therapy

== ENCOUNTER 2022-06-07 05:41 | Outpatient (CLI) | payer MEDICARE, MEDICAID ==
[~2022-06-07] VITALS: Ht 165.1 cm; Wt 73.9 kg
[2022-06-07] MEDS ORDERED: LORA5TAB9 PO (09:15)
== END 2022-06-07 09:23 | disposition home or self-care (01) ==
LOC: PREOP 05:41
PROVIDERS: ATTEND Surgery
DX: Z01.818 Encounter for other preprocedural examination (principal)

== ENCOUNTER 2022-06-16 11:43 | Day surgery (SDC) | payer MEDICARE, MEDICAID ==
[~2022-06-16] VITALS: Ht 165.1 cm; Wt 73.9 kg
[~2022-06-16 11:43] MED LIST changes: +LORA5TAB9 PO
[2022-06-16] MEDS ORDERED: LACTATED RINGERS 1,000 ML IV STA (11:49)
[2022-06-16 12:10] VITALS: BP 115/90
--- NOTE | 2022-06-16 13:18 | Progress Note-Pre Operative ---
Pre-Operative Progress Note Date of Available H&P: Jun 16, 2022 Date H&P Reviewed: Jun 16, 2022 Time H&P Reviewed: 13:18 History & Physical: H&P Reviewed, Patient Examed, No changes noted Pre-Operative Diagnosis: History of colon polyp EDDY HUNT DO Jun 16, 2022 13:18
[2022-06-16] MEDS ORDERED: PROPOFOL INJECTION 50 ML IV ONE (14:01)
[2022-06-16] MEDS ORDERED: MIDAZOLAM 2 MG/2 ML (VERSED) VIAL ONE (14:01)
[2022-06-16 14:35] VITALS: BP 106/61
--- NOTE | 2022-06-16 14:35 | Anesthesia-General Post-Op ---
MAC Patient Condition Mental Status/LOC: Same as Preop Cardiovascular: Satisfactory Nausea/Vomiting: Absent Respiratory: Satisfactory Pain: Controlled Complications: Absent Post Op Complications Complications None Follow Up Care/Instructions Patient Instructions None needed. Anesthesiology Discharge Order Discharge Order Patient is doing well, no complaints, stable vital signs, no apparent adverse anesthesia problems. No complications reported per nursing. JOSH JACOBSEN CRNA Jun 16, 2022 14:35
[2022-06-16 14:40] VITALS: BP 117/64
--- NOTE | 2022-06-16 14:51 | Discharge Inst-Simple/Standard ---
Discharge Inst-Standard Patient Instructions/Follow Up Plan of Care/Instructions/FU: 2 weeks Raymond Activity as Tolerated: Yes Discharge Diet: Regular Diet EDDY HUNT DO Jun 16, 2022 14:51
[2022-06-16 15:12] VITALS: BP 117/64
--- NOTE | 2022-06-16 23:04 | OPERATIVE REPORT ---
DATE OF SERVICE: 06/16/2022 PREOPERATIVE DIAGNOSIS: History of colon polyps. POSTOPERATIVE DIAGNOSES: Colon polyps, diverticulosis. PROCEDURE: Colonoscopy with hot biopsy polypectomy x2. SURGEON: Eddy Andrade DO. ANESTHESIA: Per CARPORT ERECTOR. ESTIMATED BLOOD LOSS: None. COMPLICATIONS: None. INDICATIONS: The patient is a 57-year-old female with history of colon polyps. She understands risks and benefits of procedure and wishes to proceed. Consent was signed in the chart. DESCRIPTION OF PROCEDURE: The patient was taken to the endoscopy suite, placed in left lateral recumbent position. Timeout was performed. Digital rectal exam was performed. No palpable polyps, masses, or ulcerations. Scope was inserted in the rectum, advanced all the way to cecum with minimal difficulty. Prep was adequate. Scope was slowly retracted back. No polyps, masses or ulcerations within the cecum, ascending, transverse, and descending colon. In the sigmoid colon, a small polyp was present, which hot biopsy polypectomy was performed. There was also diverticulosis present. Scope was then continuously retracted back in the rectum. Another small polyp was present, which hot biopsy polypectomy was performed. Scope was retroflexed, noting no other pathology. Scope was returned to its normal position, slowly withdrawn until completely removed. The patient tolerated procedure well without any complications, taken to recovery room in stable condition. RECOMMENDATIONS: The patient will have repeat colonoscopy in 3 to 5 years. Any issues before that be seen at that time. High fiber diet due to diverticulosis. The patient will follow up to go over biopsies in 2 weeks. Job ID: [id number] DocumentID: [id number] Dictated Date: 06/16/2022 14:41:31 Nuclear Unit Operator Date: 06/16/2022 23:03:23 Dictated By: EDDY ANDRADE DO
== END 2022-06-16 15:12 | disposition home or self-care (01) ==
LOC: SDC 11:43
PROVIDERS: ATTEND Surgery
DX: Z12.11 Encounter for screening for malignant neoplasm of colon (principal); K63.5 Polyp of colon; K62.1 Rectal polyp; K57.30 Diverticulosis of large intestine without perforation or abscess without bleeding; G47.33 Obstructive sleep apnea (adult) (pediatric); Z87.891 Personal history of nicotine dependence

== ENCOUNTER → 2022-07-05 | Outpatient (CLI) | payer MEDICARE, MEDICAID ==
[~2022-07-05] MED LIST changes: +RT-ALBUTEROL SULF 2.5 MG/3 ML PRE-MIX VIAL INH ONE
== END ==
LOC: RT 12:19
PROVIDERS: ATTEND Nurse Practitioner Family
DX: J44.9 Chronic obstructive pulmonary disease, unspecified (principal)
CPT/HCPCS: 94060; 94621; 94726; 94729

== ENCOUNTER → 2022-07-17 | Outpatient (CLI) | payer MEDICARE, MEDICAID ==
[~2022-07-17] MED LIST changes: -RT-ALBUTEROL SULF 2.5 MG/3 ML PRE-MIX VIAL INH ONE
--- NOTE | 2022-07-17 12:17 | Diagnostic Imaging Report ---
Indication: Routine screening. Comparison is made with prior mammogram from 07/13/2021 and 06/15/2020. 2-D and 3-D bilateral screening mammography was performed with CAD. CAD is utilized. The current study was also evaluated with a Computer Aided Detection (CAD) system. Scattered fibroglandular densities are identified bilaterally. The parenchymal pattern is stable. No mass or malignant-appearing microcalcifications are seen. Axillae are unremarkable. IMPRESSION: BI-RADS Category 1 No mammographic features suspicious for malignancy are identified. ACR BI-RADS Category 1: Negative. Result letter will be mailed to the patient. Note: At least 10% of breast cancer is not imaged by mammography. Dictated by: Dictated on workstation # [id number]
== END ==
LOC: RAD 10:45
PROVIDERS: ATTEND Nurse Practitioner Family
DX: Z12.31 Encounter for screening mammogram for malignant neoplasm of breast (principal)
CPT/HCPCS: 77063; 77067

== ENCOUNTER 2022-09-21 10:57 | Outpatient (RCR) | payer MEDICARE, MEDICAID ==
[~2022-09-21 10:57] MED LIST changes: +ALBU8.5H6 IH; -RT-ALBUINH IH
== END 2022-09-23 | disposition home or self-care (01) ==
PROVIDERS: ATTEND Internal Medicine Critical Care Medicine
DX: J44.9 Chronic obstructive pulmonary disease, unspecified (principal)

== ENCOUNTER → 2022-10-03 | Outpatient (CLI) | payer MEDICARE, MEDICAID ==
[2022-10-03 11:54] LABS: BASOPHILS # (AUTO) 0.1 10^3/uL (0.0-0.1); BASOPHILS % (AUTO) 1 % (0-10); EOSINOPHILS % (AUTO) 0 % (0-10); HEMATOCRIT 40 % (35-52); HEMOGLOBIN 13.9 g/dL (11.5-16.0); LYMPHOCYTES # (AUTO) 1.8 10^3/uL (1.0-4.0); LYMPHOCYTES % (AUTO) 18 % (12-44); MEAN CORPUSCULAR HEMOGLOBIN 34 pg (25-34); MEAN CORPUSCULAR HGB CONC 34 g/dL (32-36); MEAN CORPUSCULAR VOLUME 98 fL (80-99); MONOCYTES # (AUTO) 0.6 10^3/uL (0.0-1.0); MONOCYTES % (AUTO) 6 % (0-12); NEUTROPHILS # (AUTO) 7.7 10^3/uL (1.8-7.8); NEUTROPHILS % (AUTO) 75 % (42-75); PLATELET COUNT 375 10^3/uL (130-400); WHITE BLOOD COUNT 10.3 10^3/uL (4.3-11.0)
[2022-10-04 05:52] LABS: ALTERNARIA MOLD RAST <0.10 kU/L (0.00-0.09); RAGWEED RAST <0.10 kU/L (0.00-0.09)
== END ==
LOC: LAB 10:18
PROVIDERS: ATTEND Internal Medicine Critical Care Medicine
DX: J44.9 Chronic obstructive pulmonary disease, unspecified (principal)
CPT/HCPCS: 36415; 82805; 85025; 86003; 86021

== ENCOUNTER 2022-10-09 13:14 | Outpatient (RCR) | payer MEDICARE, MEDICAID | END 2022-10-24 | disposition home or self-care (01) | PROVIDERS: ATTEND Internal Medicine Critical Care Medicine | DX: J44.9 Chronic obstructive pulmonary disease, unspecified (principal) ==

== ENCOUNTER 2023-04-25 07:31 | Outpatient (CLI) | payer MEDICARE, MEDICAID ==
[~2023-04-25] VITALS: Ht 165.1 cm; Wt 74.1 kg
[~2023-04-25 07:31] MED LIST changes: -MELA1TAB20 PO; +MELA1TAB72 PO; +MONT-47 PO; -MONT10TA21 PO
== END 2023-04-26 11:27 | disposition home or self-care (01) ==
LOC: PREOP 07:31
PROVIDERS: ATTEND Specialist
DX: Z01.818 Encounter for other preprocedural examination (principal)

== ENCOUNTER 2023-04-27 09:10 | Day surgery (SDC) | payer MEDICARE, MEDICAID ==
[~2023-04-27] VITALS: Ht 165.1 cm; Wt 74.1 kg
[2023-04-27] MEDS: TETRACAINE 0.5% OPHTH SOLN 4 ML BTL (SINGLE DOSE ONLY) OU PRN ×3 (09:28→09:39)
[2023-04-27 09:30] VITALS: BP 145/84
[2023-04-27] MEDS: TROPICAMIDE 1% OPH SOLN (MYDRIACYL) 15 ML BTL OU PRN ×2 (09:33→09:39)
[2023-04-27] MEDS: PHENYLEPHRINE 10% OPHTH (NEO-SYN) 5 ML BTL OU PRN ×2 (09:34→09:39)
--- NOTE | 2023-04-27 10:14 | Ophthalmologist Pre-Op Note ---
Pre-Operative Progress Note H&P Reviewed The H&P was reviewed, patient examined and no changes noted. Date H&P Reviewed: Apr 27, 2023 Time H&P Reviewed: 09:44 Pre-Op Dx Secondary Cataract, Bilateral Eyes STEPH TRUONG MD Apr 27, 2023 10:14
--- NOTE | 2023-04-27 10:15 | Ophthalmology Operative Report ---
YAG Capsulotomy PREOPERATIVE DIAGNOSIS: Secondary Cataract Bilateral POSTOPERATIVE DIAGNOSIS: Secondary Cataract Bilateral PROCEDURE: YAG Capsulotomy, Bilateral SURGEON: Farhat Truong ANESTHESIA: Topical anesthesia COMPLICATIONS: None ESTIMATED BLOOD LOSS: Minimal DESCRIPTION OF PROCEDURE: After proper informed consent was obtained, the patient's, a 57 female , received one drop of Tropicamide and one drop of Tetracaine in each eye. The patient was then placed at the YAG laser and using a power of [ 5.0] millijoules and bursts [23 ] right eye and [24 ] left eye were used to fashion a central capsulotomy. The patient tolerated the procedure well without complications. FARHAT TRUONG MD Apr 27, 2023 10:15
== END 2023-04-27 10:00 | disposition home or self-care (01) ==
LOC: SDC 09:10
PROVIDERS: ATTEND Specialist
DX: H26.40 Unspecified secondary cataract (principal); Z87.891 Personal history of nicotine dependence

== ENCOUNTER → 2023-07-19 | Outpatient (CLI) | payer MEDICARE, MEDICAID ==
--- NOTE | 2023-07-19 12:55 | Diagnostic Imaging Report ---
Indication: Routine screening. Comparison is made with prior mammograms from 07/17/2022 and 07/13/2021. 2-D and 3-D bilateral screening mammography was performed with CAD. Scattered fibroglandular densities are identified bilaterally. The parenchymal pattern is stable. No mass or malignant-appearing microcalcifications are identified. Axillae are unremarkable. IMPRESSION: BI-RADS Category 1 No mammographic features suspicious for malignancy are identified. ACR BI-RADS Category 1: Negative. Result letter will be mailed to the patient. Note: At least 10% of breast cancer is not imaged by mammography. Dictated by: Dictated on workstation # [id number]
== END ==
LOC: RAD 10:26
PROVIDERS: ATTEND Nurse Practitioner Family
DX: Z12.31 Encounter for screening mammogram for malignant neoplasm of breast (principal)
CPT/HCPCS: 77063; 77067